=== PATIENT | male | born 1955 | race Caucasian/White ===

== ENCOUNTER 2018-08-01 21:29 | Inpatient (IN) | payer MEDICAID, MEDICARE ==
[~2018-08-01] VITALS: Ht 172.7 cm; Wt 85.7 kg
--- NOTE | 2018-08-01 22:35 | NUR ---
BBRA 102 FROM 4 SEASON FOR BLEEDING SHUNT, UNKNOWN DURATION OF BLEED PER FACILITY, PT WAS HYPOTENSIVE BP 80/80 BS AT FACILITY 340, UPON ARRIVAL RECHECKED BP 60/33 70, AFEBRILE, NO DISTRESS ON RA, AOX2, DR WOOD AT BEDSIDE TO ASSESS SITE, NO BLEEDING AT THIS TIME, 1L ORDERED, IV STARTED BOLUS. LT UA SUTURED.
[2018-08-01] MEDS ORDERED: IV NS 0.9% 1,000 ML BAG IV ONE (23:00)
[2018-08-01 23:14] LABS: BASOPHILS # (AUTO) 0.1 /CMM (0.0-0.2); BASOPHILS % (AUTO) 1.2 % (0.0-2.0); EOSINOPHILS % (AUTO) 0.6 % (0.0-6.0); HEMATOCRIT 27 % (39-51); HEMOGLOBIN 9.1 g/dL (13.5-17.5); LYMPHOCYTES # (AUTO) 0.5 /CMM (0.8-4.8); LYMPHOCYTES % (AUTO) 4.4 % (20.0-44.0); MEAN CORPUSCULAR HGB CONC 34 g/dl (31.0-36.0); MEAN CORPUSCULAR VOLUME 101 fL (80-96); MONOCYTES # (AUTO) 0.5 /CMM (0.1-1.30); MONOCYTES % (AUTO) 4.9 % (2.0-12.0); NEUTROPHILS # (AUTO) 9.4 /CMM (1.8-8.9); NEUTROPHILS % (AUTO) 88.9 % (43.0-81.0); PLATELET COUNT (AUTO) 194 /CMM (150-450); RED BLOOD CELL COUNT(AUTO) 2.68 MIL/uL (4.5-6.0); WHITE BLOOD COUNT (AUTO) 10.6 K/uL (4.3-11.0)
[2018-08-01 23:21] LABS: CREATININE 3.8 mg/dL (0.6-1.3)
[2018-08-01 23:27] LABS: ALBUMIN 3.2 g/dL (3.4-5.0); BILIRUBIN,DIRECT 0.1 mg/dL (0.0-0.2); BILIRUBIN,TOTAL 0.3 mg/dL (0.2-1.0); CALCIUM, SERUM 8.5 mg/dL (8.5-10.1); TOTAL PROTEIN, SERUM 6.3 g/dL (6.4-8.2)
[2018-08-02] MEDS ORDERED: Z GUARD REMEDY 2 OZ OINT TP PRN (01:00)
[2018-08-02] MEDS ORDERED: HYDROCODONE/APAP 5/325MG 1 EACH TABLET PO PRN (01:00)
[2018-08-02] MEDS ORDERED: MAG HYDROX/AL HYDROX/SIMETH 30 ML UDC PO PRN (01:00)
[2018-08-02] MEDS ORDERED: DEXTROSE 50%-WATER 50 ML DISP.SYRIN IV PRN (01:00)
[2018-08-02] MEDS ORDERED: MAGNESIUM HYDROXIDE 30 ML UDC PO PRN (01:00)
--- NOTE | 2018-08-02 01:30 | NUR ---
PT ASSIGNED TO 117-1
--- NOTE | 2018-08-02 02:20 | NUR ---
REPORT GIVEN TO ELNIA RUTLEDGE
[2018-08-02] MEDS ORDERED: IV NS 0.9% 1,000 ML BAG IV ONE (02:30)
--- NOTE | 2018-08-02 02:50 | NUR ---
OMAR/ORNAMENTAL METALWORK DESIGNER PT WAS TRANSFERRED TO OMAR. PT PLACED IN BED. SEE FLOWSHEET FOR ASSESSMENT. ALSO ANY AND ALL SKIN ISSUES WHICH ARE ADDRESSES ALONG WITH EACH INTERVENTIONS. PT WS TURNED AND REPOSITIONED FOR COMFORT KENDRICK CARE.
[2018-08-02 03:00] VITALS: BP 125/50
[2018-08-02 04:00] VITALS: BP 110/61
--- NOTE | 2018-08-02 04:00 | NUR ---
OMAR/AGRICULTURAL RESEARCH DIRECTOR IVF BOLUS FINISHED AND HEPLOCK. PT WAS TURNED AND REPOSITIONED FOR COMFORT AND CARE.
--- NOTE | 2018-08-02 05:32 | NUR ---
OMAR/TACTICAL AIR CONTROL PARTY WENT IN TO OFFER PT PAIN MEDICATION FOR PAIN WHICH PT C/O EARLIER, HOWEVER FOUND PT SUCKING ON PULSE OX AND WAS NONVERBAL. PT'S V/S DONE WHICH WAS 97/43, 89, 92%, RR 18. ABG WAS ORDERED STAT, CHARGE NURSE MADE AWARE OF PT'S NEURO STATUS.
[2018-08-02 05:42] LABS: ABG BASE EXCESS 1.9 mmol/L; ABG PCO2 30.3 mmHg (35.0-45.0); ABG PH 7.525 (7.350-7.450); ABG PO2 78.8 mmHg (75.0-100.0); AaDO2 85.1 mmHg; COHb 3.4 % (0.5-1.5); MetHb 0.3 % (0.0-1.5); O2Hb 91.5 % (94.0-97.0); SITE, ABG Right Radial; VENT MODE, BG 2 lpm cannula
--- NOTE | 2018-08-02 05:50 | NUR ---
ICU/USED BUILDING MATERIALS YARD WORKER PT'S ABG IS OK AT THIS TIME. WILL CONTINUE TO MONITOR PT AND HIS BREATHING. AT THIS TIME THERE IS NO ACUTE DISTRESS.
[2018-08-02 08:00] VITALS: BP 91/40
--- NOTE | 2018-08-02 08:22 | NUR ---
RN OMAR NOTES RECEIVED HAND OFF REPORT FROM AMANDA
[2018-08-02] MEDS: BLOOD SUGAR DIAGNOSTIC 1 EACH STRIP IN SCH ×4 (09:07→22:09)
[2018-08-02] MEDS: ACETAMINOPHEN 325 MG TABLET PO PRN (09:09)
[2018-08-02] MEDS: INSULIN REGULAR, HUMAN 100 UNIT/ML 3 ML VIAL SQ PRN ×4 (09:09→22:11)
--- NOTE | 2018-08-02 09:24 | NUR ---
RN OMAR NOTES PATIENT HAS ELEVATED TEMP OF 101.1 TYLENOL 650MG GIVEN AND COOL MEASURES TAKEN. NOTIFIED BOX ATTACHER IN REGARDS TO TEMP
[2018-08-02] MEDS ORDERED: MAGN400O6 PO (10:01)
[2018-08-02] MEDS ORDERED: AMIN30LI2 PO (10:01)
[2018-08-02] MEDS ORDERED: ACET-868 PO (10:01)
[2018-08-02] MEDS ORDERED: SEVE800T8 PO (10:02)
[2018-08-02] MEDS ORDERED: NEPA3DRO RIGHTEYE (10:02)
[2018-08-02] MEDS ORDERED: OMEG-88 PO (10:02)
[2018-08-02] MEDS ORDERED: ASPI-1152 PO (10:02)
[2018-08-02] MEDS ORDERED: ASCO500T9 PO (10:02)
[2018-08-02] MEDS ORDERED: PRAV40TA3 PO (10:02)
[2018-08-02] MEDS ORDERED: PROP10TA10 PO (10:02)
[2018-08-02] MEDS ORDERED: TERA10CA4 PO (10:02)
[2018-08-02] MEDS ORDERED: AMLO10TA4 PO (10:02)
[2018-08-02] MEDS ORDERED: FOLI0.8T2 PO (10:02)
[2018-08-02] MEDS ORDERED: HYDR-4077 PO (10:02)
[2018-08-02] MEDS ORDERED: BLOO-668 IN (10:02)
[2018-08-02] MEDS ORDERED: SERT50TA PO (10:02)
[2018-08-02] MEDS ORDERED: DORZ10DR13 EACHEYE (10:02)
[2018-08-02] MEDS ORDERED: HYDR-3026 PO (10:02)
[2018-08-02] MEDS ORDERED: INSU100V3 SQ (10:02)
[2018-08-02] MEDS ORDERED: GABA-534 PO (10:02)
--- NOTE | 2018-08-02 11:14 | NUR ---
RN OMAR NOTES PATIENT NOTED TO HAVE DONNA BLOOD COMING FROM [facility]. ANA SAAVEDRA AWARE. ATTEMPTED UA STRAIGHT CATH UNABLE TO OBTAIN SAMPLE
[2018-08-02 12:00] VITALS: BP 78/26
--- NOTE | 2018-08-02 12:10 | NUR ---
RN OMAR NOTES CONTACTED ANA SAAVEDRA IN REGARDS TO PT LOW BP 78/26 . ORDERS FOR 1 LITER NS AND STAT CBC.
[2018-08-02] MEDS: IV NS 0.9% 1,000 ML IV PRN ×2 (12:15→16:47)
[2018-08-02 12:50] LABS: BASOPHILS % (AUTO) 0.1 % (0.0-2.0); HEMATOCRIT 24 % (39-51); HEMOGLOBIN 7.9 g/dL (13.5-17.5); LYMPHOCYTES # (AUTO) 0.6 /CMM (0.8-4.8); LYMPHOCYTES % (AUTO) 2.5 % (20.0-44.0); MEAN CORPUSCULAR HGB CONC 33 g/dl (31.0-36.0); MEAN CORPUSCULAR VOLUME 99 fL (80-96); MONOCYTES # (AUTO) 1.2 /CMM (0.1-1.30); MONOCYTES % (AUTO) 5.3 % (2.0-12.0); NEUTROPHILS # (AUTO) 20.4 /CMM (1.8-8.9); NEUTROPHILS % (AUTO) 92.1 % (43.0-81.0); PLATELET COUNT (AUTO) 182 /CMM (150-450); RED BLOOD CELL COUNT(AUTO) 2.37 MIL/uL (4.5-6.0); WHITE BLOOD COUNT (AUTO) 22.2 K/uL (4.3-11.0)
--- NOTE | 2018-08-02 13:22 | NUR ---
RN OMAR NOTES ORDER OBTAINED FOR MIDLINE INSERTION PATIENT HAS MINIMAL ACCESS. ALSO INFORMED ANA SAAVEDRA IN REGARDS TO HGB OF 7.9 DECREASED FROM 9.1 LAST NIGHT. PATIENT HAS HAD 2X MUCOUS BLOOD STOOL
--- NOTE | 2018-08-02 13:32 | NUR ---
RN OMAR NOTES IV TO L HAND # 20 REMOVED IV TO R FINGER # 24 REMOVED
--- NOTE | 2018-08-02 14:31 | NUR ---
RN OMAR NOTES BP AFTER 1 LITER 102/46 HR 75
[2018-08-02 16:00] VITALS: BP 110/50
--- NOTE | 2018-08-02 16:15 | NUR ---
RN OMAR NOTES STRAIGHT CATH X2 NO URINE TO COLLECT. ORDER FOR PADILLA CATH
--- NOTE | 2018-08-02 16:16 | NUR ---
CRITICAL LAB LACTIC ACID 2.2 ANA SAAVEDRA AWARE
[2018-08-02] MEDS ORDERED: FEE PK DOSING 1 MIN EA MC ONE (16:30)
[2018-08-02] MEDS ORDERED: VANCOMYCIN 1 GM in IV D5W 250 ML IV ONE (17:00)
[2018-08-02] MEDS ORDERED: NS 0.9% IV PRN (17:00)
[2018-08-02] MEDS ORDERED: IV NS 0.9% 1,000 ML IV PRN (17:00)
[2018-08-02] MEDS: MEROPENEM 500 MG in IV NS 0.9% 50 ML IV SCH (17:22)
[2018-08-02] MEDS: METRONIDAZOLE 500MG/ NS 100ML 500 MG in PREMIX 1 EA IV SCH ×2 (17:38→22:06)
[2018-08-02] MEDS ORDERED: METRONIDAZOLE 500MG/ NS 100ML 500 MG in PREMIX 1 EA IV SCH (18:00)
[2018-08-02 18:42] LABS: FREE PSA 22.43 ng/mL (0.00-45); PROSTATE SPECIFIC ANTIGEN SCR 59.64 ng/mL (0.00-4.00)
--- NOTE | 2018-08-02 18:46 | NUR ---
RN OMAR NOTES PATIENT MORE RESPONSIVE. A/O X1 SELF FOLLOWS COMMANDS BUT UNABLE TO ANSWER SIMPLE QUESTIONS WITHOUT BEING PROMPTED. NO SIGNS OR SYMPTOMS OF RESPIRATORY DISTRESS SATURATING 98% ON 2 LITERS. NO ACUTE PAIN NOTED. INCONTINENT/ DIAPER ANURIC. 3X BLOODY STOOL MD AWARE. MIDLINE RUNNING NS @75 ML/HR PATENT WITH GOOD BLOOD RETURN. NO WARMTH REDNESS OR INFILTRATION NOTED. LEFT BKA STUMP CLEAN WITH NO SKIN BREAKDOWN. R ANTERIOR FOOT DTI MEPILEX APPLIED PER ORDER. SACRAL EXCORIATED ZGAURG APPLIED. NO EPISODES OF HYPER/HYPOGLYCEMIA NOTED. LAST BP 110/50. NOTIFIED INREGARDS TO ALL ABNORMAL LABS. WILL ENDORSE TO NOC IN REGARDS TO UA OK TO PUT PADILLA CATH TO MONITOR OUTPUT.
--- NOTE | 2018-08-02 18:46 | NUR ---
LACTIC ACID 1.1
--- NOTE | 2018-08-02 19:08 | NUR ---
TD RN NOTES RECEIVED PT ON BED. A/O X 1. ON NASAL CANNULA 2LPM, NO RESPIRATORY DISTRESS NOTED. IV ACCESS ON LOPEZ MIDLINE, PATENT AND INTACT. TELE MONITOR READING SR 80. NO BLEEDING NOTED ON SHUNT. HEAD OF BED ELEVATED. SIDE RAILS UP. CALL LIGHT WITHIN REACH. BED ALARM ON. WILL CONTINUE TO MONITOR PT CLOSELY
--- NOTE | 2018-08-02 19:12 | NUR ---
RN OMAR CLOSING NOTES REPORT ENDORSED TO NOC
[2018-08-02 20:00] VITALS: BP 100/56
--- NOTE | 2018-08-02 21:00 | NUR ---
TD RN NOTES CALLED RADIOLOGY FOR CT SCAN. PER RADIOLOGY THEY WILL DO IT TODAY.
--- NOTE | 2018-08-02 21:05 | NUR ---
TD RN NOTES PER PHARMACY OKAY TO GIVE METRONIDAZOLE @ 2200.
--- NOTE | 2018-08-02 21:24 | NUR ---
TD RN NOTES PT REFUSED PADILLA CATH. PT AGITATED WHEN TRYING TO INSERT. WILL TRY CONDOM CATHETER. CHARGE NURSE INFORMED.
[2018-08-03] VITALS (9 sets, daily range): BP systolic 94–133; BP diastolic 37–60
[2018-08-03] MEDS: MEROPENEM 500 MG in IV NS 0.9% 50 ML IV SCH ×2 (04:08→17:08)
--- NOTE | 2018-08-03 04:49 | NUR ---
TD RN NOTES BLADDER SCAN SHOWS 20ML. VERIFIED BY 2 RN. PT REFUSE STRAIGHT CATH FOR URINE SAMPLE. EXPLAINED RISK AND BENEFITS PT STILL REFUSED. CHARGE NURSE INFORMED.
[2018-08-03] MEDS: METRONIDAZOLE 500MG/ NS 100ML 500 MG in PREMIX 1 EA IV SCH ×3 (05:00→21:20)
--- NOTE | 2018-08-03 05:00 | NUR ---
TD RN NOTES UNABLE TO COLLECT STOOL. NO BOWEL MOVEMENT FOR THE SHIFT.
[2018-08-03 06:51] LABS: BASOPHILS % (AUTO) 0.1 % (0.0-2.0); EOSINOPHILS % (AUTO) 0.5 % (0.0-6.0); LYMPHOCYTES # (AUTO) 0.5 /CMM (0.8-4.8); LYMPHOCYTES % (AUTO) 3.1 % (20.0-44.0); MEAN CORPUSCULAR HGB CONC 34 g/dl (31.0-36.0); MEAN CORPUSCULAR VOLUME 101 fL (80-96); MONOCYTES % (AUTO) 6.2 % (2.0-12.0); NEUTROPHILS # (AUTO) 13.9 /CMM (1.8-8.9); NEUTROPHILS % (AUTO) 90.1 % (43.0-81.0); PLATELET COUNT (AUTO) 164 /CMM (150-450); WHITE BLOOD COUNT (AUTO) 15.4 K/uL (4.3-11.0)
[2018-08-03 06:57] LABS: RED BLOOD CELL COUNT(AUTO) 1.98 MIL/uL (4.5-6.0)
[2018-08-03 06:58] LABS: HEMATOCRIT 20 % (39-51); HEMOGLOBIN 6.7 g/dL (13.5-17.5)
--- NOTE | 2018-08-03 07:01 | NUR ---
TD RN NOTES PAGED [facility], FO H/H OF 6.7. AWAITING CALL BACK.
[2018-08-03 07:11] LABS: BAND % (MANUAL) 3 % (0.0-5.0); EOSINOPHILS % (MANUAL) 1 % (0-4); LYMPHOCYTES % (MANUAL) 3 % (16-48); MONOCYTES % (MANUAL) 1 % (0-11.0); NEUTROPHILS % (MANUAL) 92 (42-76)
--- NOTE | 2018-08-03 07:16 | NUR ---
TD RN NOTES NO ACUTE CHANGES NOTED DURING THE SHIFT. NO ACTIVE BLEEDING NOTED. BP WNL. WILL ENDORSE TO THE AM NURSE FOR CONTINUITY OF CARE.
--- NOTE | 2018-08-03 07:19 | NUR ---
TD RN NOTES ENDORSED TO AM NURSE ONE UNIT PRBC ORDER PER NAE OTA
[2018-08-03 07:28] LABS: CALCIUM, SERUM 9.2 mg/dL (8.5-10.1); CREATININE 5.6 mg/dL (0.6-1.3); MAGNESIUM 2.2 mg/dL (1.8-2.4); PHOSPHORUS 4.9 mg/dL (2.5-4.9); POTASSIUM 4.3 mmol/L (3.5-5.1)
--- NOTE | 2018-08-03 07:40 | NUR ---
rn notes received patient in bed, awake, not on any form of distress, a/o x2, able to respond to questions appropriately, able to follow commands, with nasal cannula with oxygen at 2 lpm, no sob noted. sinus ryhthm on the monitor with hr on the 70's. midline on the right upper extremity, in place and intact, with ongiung ivf of normal saline at 75 cc/hr. patient with condom cath in place in lieu to urine collection for lab test- no output at this time. safety measures observed and maintained, srx2 up, bed low and locked position, call light placed within reach, encourage to use call light for help and assistance, richie continue to monitor patient.
--- NOTE | 2018-08-03 07:44 | NUR ---
rn notes confirmed with Dr. Villegas, if transfusion for prbc nayan at this time. awaiting for call back
[2018-08-03] MEDS: BLOOD SUGAR DIAGNOSTIC 1 EACH STRIP IN SCH ×4 (09:16→21:26)
[2018-08-03] MEDS: INSULIN REGULAR, HUMAN 100 UNIT/ML 3 ML VIAL SQ PRN ×3 (09:17→21:28)
[2018-08-03 09:25] LABS: THYROID STIMULATING HORMONE 2.577 uIU/mL (0.358-3.74)
--- NOTE | 2018-08-03 11:00 | NUR ---
rn notes dialysis treatment started at this time.
--- NOTE | 2018-08-03 13:00 | NUR ---
rn notes dialysis treatment done. patient able to tolerate procedure. not on any form of distress. 1000ml taken out from the patient
[2018-08-03] MEDS: VANCOMYCIN 500 MG in IV D5W 100 ML IV PRN (15:12)
--- NOTE | 2018-08-03 19:11 | NUR ---
rn notes endorsed for continuity of care. not on any form of distress. no acute changes within the shift. all nursing needs attended and met. safety measures in place at all times. call light within reach
--- NOTE | 2018-08-03 19:32 | NUR ---
MS RN NOTES RECEIVED PT ON BED. A/O X 3. ON NASAL CANNULA 2LPM NO RESPIRATORY DISTRESS NOTED. IV ACCESS ON LOPEZ MIDLINE SALINE LOCK. CONDOM CATH IN PLACED, NOT DRAINING ANY URINE. HEAD OF BED ELEVATED. SIDE RAILS UP. CALL LIGHT WITHIN REACH. BED ALARM ON. WILL CONTINUE TO MONITOR PT CLOSELY.
[2018-08-03] MEDS: MUPIROCIN OINT 2% 22 GM TUBE SCH (21:21)
[2018-08-04] VITALS (11 sets, daily range): BP systolic 110–150; BP diastolic 34–56
[2018-08-04] MEDS: MEROPENEM 500 MG in IV NS 0.9% 50 ML IV SCH ×2 (04:00→18:43)
[2018-08-04] MEDS: METRONIDAZOLE 500MG/ NS 100ML 500 MG in PREMIX 1 EA IV SCH ×3 (05:01→21:11)
[2018-08-04 07:12] LABS: BASOPHILS % (AUTO) 0.4 % (0.0-2.0); EOSINOPHILS % (AUTO) 2.9 % (0.0-6.0); LYMPHOCYTES # (AUTO) 0.5 /CMM (0.8-4.8); LYMPHOCYTES % (AUTO) 5.6 % (20.0-44.0); MEAN CORPUSCULAR HGB CONC 34 g/dl (31.0-36.0); MEAN CORPUSCULAR VOLUME 98 fL (80-96); MONOCYTES # (AUTO) 0.6 /CMM (0.1-1.30); MONOCYTES % (AUTO) 6.2 % (2.0-12.0); NEUTROPHILS # (AUTO) 7.8 /CMM (1.8-8.9); NEUTROPHILS % (AUTO) 84.9 % (43.0-81.0); PLATELET COUNT (AUTO) 170 /CMM (150-450); RED BLOOD CELL COUNT(AUTO) 2.08 MIL/uL (4.5-6.0); WHITE BLOOD COUNT (AUTO) 9.2 K/uL (4.3-11.0)
--- NOTE | 2018-08-04 07:17 | NUR ---
MS RN NOTES NO ACUTE CHANGES NOTED DURING THE SHIFT. PROVIDED COMFORT AND SAFETY. WILL ENDORSE TO THE AM NURSE FOR CONTINUITY OF CARE.
[2018-08-04 07:23] LABS: HEMATOCRIT 20 % (39-51)
[2018-08-04 07:25] LABS: HEMOGLOBIN 6.9 g/dL (13.5-17.5)
[2018-08-04 07:35] LABS: ALBUMIN 2.3 g/dL (3.4-5.0); BILIRUBIN,TOTAL 0.4 mg/dL (0.2-1.0); CALCIUM, SERUM 8.4 mg/dL (8.5-10.1); CREATININE 4.7 mg/dL (0.6-1.3); PHOSPHORUS 4.1 mg/dL (2.5-4.9); POTASSIUM 3.9 mmol/L (3.5-5.1); TOTAL PROTEIN, SERUM 5.4 g/dL (6.4-8.2)
--- NOTE | 2018-08-04 08:00 | NUR ---
MS RN NOTES PT IN BED ALERT AND ORIENTED X3. ON 02 2LPM. NO SOB NOTED AT THIS TIME. PT HAVING BREAKFAST AND ABLE TO FEED SELF. LOPEZ MIDLINE IN PLACED AND INTACT. NO S/S OR INFECTION. SPOKE WITH DR. ZUNIGA ESTATE ADMINISTRATOR TO STOP IV FLUIDS. DR. ZUNIGA ALSO INFORMED HBG 6.9. NO ORDERS GIVEN AND NO BLOOD TRANSFUSION AT THIS TIME. BED LOCKED AND LOW POSITION. CALL LIGHT WITHIN REACH. PLAN OF CARE DISCUSSED WITH PATIENT.
[2018-08-04 08:12] LABS: EOSINOPHILS % (MANUAL) 5 % (0-4); LYMPHOCYTES % (MANUAL) 8 % (16-48); MONOCYTES % (MANUAL) 4 % (0-11.0); NEUTROPHILS % (MANUAL) 83 (42-76)
[2018-08-04] MEDS: BLOOD SUGAR DIAGNOSTIC 1 EACH STRIP IN SCH ×4 (08:52→21:10)
[2018-08-04] MEDS: MUPIROCIN OINT 2% 22 GM TUBE SCH ×2 (08:56→21:11)
[2018-08-04] MEDS: INSULIN REGULAR, HUMAN 100 UNIT/ML 3 ML VIAL SQ PRN ×4 (08:56→21:14)
--- NOTE | 2018-08-04 10:30 | NUR ---
MS RN NOTES ROUNDS MADE. KEEP CLEAN AND DRY. TURN AND REPOSITION. CALL LIGHT WITHIN REACH. ALL NEEDS ATTENDED.
--- NOTE | 2018-08-04 13:56 | NUR ---
MS RN NOTE SEEN BY ANA RUTLEDGE FILM PROCESS OPERATOR AWARE THAT HG 6.9 WITH ORDER TO DO BLOOD TRANSFUSION, ALSO NOTIFIED TO DO MED RECON STATED THAT WILL DO IT ,WILL F\U
--- NOTE | 2018-08-04 14:51 | NUR ---
MS RN NOTES TEMP OF 100.6 PT TO HAVE BLOOD TRANSFUSION. CALLED MEAGAN SAAVEDRA OK TO GIVE TYLENOL AND TO PROCEED WITH BLOOD TRANSFUSION.
[2018-08-04] MEDS: ACETAMINOPHEN 325 MG TABLET PO PRN (14:55)
--- NOTE | 2018-08-04 15:35 | NUR ---
MS RN NOTE BLOOD TRANSFUSION START TO TRANSFUSE, NO ADVERSE REACTION NOTED AT THIS TIME
--- NOTE | 2018-08-04 16:58 | NUR ---
MS RN NOTES RECHECKED PT, BOWEL MOVEMENT MADE. NO BLEEDING NOTED.
--- NOTE | 2018-08-04 17:58 | NUR ---
MS MATY NOTES TEMP OF 100.1 WAS EARLIER AND MATY BURCIAGA CAREER REPRESENTATIVE ID AWARE EARLIER. MEREPENEM NOT GIVEN AT 1700. PT STILL TRANSFUSING BLOOD. WILL DO LATER ON
--- NOTE | 2018-08-04 18:27 | NUR ---
MS RN NOTES CONTINUE ON BLOOD TRANSFUSION. PT NOT IN DISTRESS. NO SOB. ABLE TO EAT BY HIMSELF. HAVING DINNER AT THE MOMENT. CALL LIGHT WITHIN REACH. DR. DESOUZA SEEN PATIENT AT BEDSIDE.
--- NOTE | 2018-08-04 18:40 | NUR ---
MS RN NOTES BLOOD TRANSFUSION OF 1UNIT COMPLETED. NO ADVERSE REACTION NOTED. TOLERATED WELL. TEMP WAS 98.7.
[2018-08-05 04:00] VITALS: BP 152/63
[2018-08-05] MEDS: MEROPENEM 500 MG in IV NS 0.9% 50 ML IV SCH ×2 (04:04→17:37)
[2018-08-05 04:20] VITALS: BP 152/63
[2018-08-05] MEDS: METRONIDAZOLE 500MG/ NS 100ML 500 MG in PREMIX 1 EA IV SCH ×3 (05:33→22:21)
--- NOTE | 2018-08-05 07:05 | NUR ---
MS RN OPENING NOTES RECEIVED PT LYING ON BED.ALERT/ORIENTED X3.ON 2 L O2 VIA NC CONTINUOUSLY,NO SOB AND ACUTE DISTRESS NOTED.MIDLINE ON RIGHT UA AND LEFT AV SHUNT,SITE IS CLEAN,DRY AND INTACT AND NO BLEEDING NOTED..BED IS IN LOW POSITION AND LOCKED.CALL LIGHT IS WITHIN REACH.WILL CONTINUE TO MONITOR THE PT CLOSELY.
--- NOTE | 2018-08-05 07:27 | NUR ---
MS RN NOTES NO ACUTE CHANGES NOTED DURING THE SHIFT. PROVIDED COMFORT AND SAFETY. NO ACTIVE BLEEDING NOTED.WILL ENDORSE TO THE AM NURSE FOR CONTINUITY OF CARE.
[2018-08-05 07:34] LABS: BASOPHILS # (AUTO) 0.1 /CMM (0.0-0.2); BASOPHILS % (AUTO) 0.7 % (0.0-2.0); EOSINOPHILS % (AUTO) 4.6 % (0.0-6.0); HEMATOCRIT 24 % (39-51); HEMOGLOBIN 8.2 g/dL (13.5-17.5); LYMPHOCYTES # (AUTO) 0.7 /CMM (0.8-4.8); LYMPHOCYTES % (AUTO) 6.3 % (20.0-44.0); MEAN CORPUSCULAR HGB CONC 34 g/dl (31.0-36.0); MEAN CORPUSCULAR VOLUME 96 fL (80-96); MONOCYTES # (AUTO) 0.7 /CMM (0.1-1.30); MONOCYTES % (AUTO) 6.6 % (2.0-12.0); NEUTROPHILS # (AUTO) 8.6 /CMM (1.8-8.9); NEUTROPHILS % (AUTO) 81.8 % (43.0-81.0); PLATELET COUNT (AUTO) 189 /CMM (150-450); RED BLOOD CELL COUNT(AUTO) 2.48 MIL/uL (4.5-6.0); WHITE BLOOD COUNT (AUTO) 10.5 K/uL (4.3-11.0)
[2018-08-05 07:38] LABS: CALCIUM, SERUM 8.6 mg/dL (8.5-10.1); CREATININE 6.4 mg/dL (0.6-1.3); POTASSIUM 4.2 mmol/L (3.5-5.1)
--- NOTE | 2018-08-05 07:45 | NUR ---
WOUND CARE CONSULT WOUND CARE RECEIVED CONSULT FOR WOUND TO SACRAL AND RIGHT ANKLE. WOUND CARE WILL DEFER CONSULT AND TREATMENT PLANS TO PLASTIC SURGICAL TEAM INCLUDING DPM DR VINCENT WHO ARE ALL FOLLOWING THIS PATIENT. PATIENT WITH SARAH AT 10, ALL PRESSURE ULCER PREVENTION MEASURES ARE NOTED TO BE IN PLACE AT THIS TIME. WILL SEE PRN.
[2018-08-05 08:00] VITALS: BP 148/54
[2018-08-05 08:08] LABS: IRON, SERUM 34 ug/dl (50-175); TOTAL IRON BINDING CAPACITY 129 ug/dl (250-450)
[2018-08-05 08:21] LABS: FERRITIN 1965 ng/mL (8-388)
[2018-08-05] MEDS: INSULIN REGULAR, HUMAN 100 UNIT/ML 3 ML VIAL SQ PRN ×2 (08:33→22:21)
[2018-08-05] MEDS: BLOOD SUGAR DIAGNOSTIC 1 EACH STRIP IN SCH ×4 (08:33→22:21)
[2018-08-05] MEDS: MUPIROCIN OINT 2% 22 GM TUBE SCH ×2 (08:34→22:21)
[2018-08-05] MEDS: ONDANSETRON HCL/PF 4 MG/2 ML VIAL IVP PRN (12:45)
--- NOTE | 2018-08-05 15:45 | NUR ---
MS RN NOTES VANCO TROUGH IS 21 TODAY, PER PHARMACIST LEIGH HOLD IV VANCOMYCIN.NEW ORDERS NOTED AND CARRIED OUT.
[2018-08-05 16:00] VITALS: BP 144/41
--- NOTE | 2018-08-05 16:00 | NUR ---
MS RN NOTES MEAGAN PEREZ ORDERED TO GET THE CONSENT FOR COLONOSCOPY FROM THE RESPONSIBLE DEMOCRAT.NEW ORDERS NOTED AND CARRIED OUT.
--- NOTE | 2018-08-05 16:30 | NUR ---
MS RN NOTES ASSOCIATE MERCHANT QUENTINMUSTAPHA PEREZ SAID THEY ARE PLANNING TO DO COLONOSCOPY IN THE FOLLOWING DAYS AND SHE WANTS TO CALL THE RESPONSIBLE LIBERTARIAN TO GET THE CONSENT.CONSENT OBTAINED FROM FEDERICO MAKI,FRIEND.ASSOCIATE MERCHANT MADE AWARE.
--- NOTE | 2018-08-05 18:57 | NUR ---
MS RN CLOSING NOTES PT IS LYING ON BED,HD HAS DONE.VITAL SIGNS ARE WNL.NO SIGNIFICANT CHNAGES NOTED IN THE SHIFT.ENDORSED TO BASE CLOTH INSPECTOR RN FOR EVELYN.
[2018-08-05 20:00] VITALS: BP 161/33
--- NOTE | 2018-08-05 20:23 | NUR ---
RN OPENING NOTES RECEIVED REPORT FROM BINH RN. PATIENT A/A/O X2-3, ABLE TO MAKE NEEDS KNOWN. BREATHING EVEN & UNLABORED, TOLERATING O2 @ 2LPM VIA NC. DENIES ANY SOB OR DIFFICULTY BREATHING. RADIAL PULSES PRESENT. RIGHT UPPER ARM MIDLINE INTACT & PATENT W/ DRESSING CDI, SALINE LOCKED. LEFT ARM AV SHUNT PRESENT W/ NO COMPLICATIONS NOTED. DENIES ANY PAIN OR DISCOMFORT @ THIS TIME. SAFETY MEASURES IN PLACE W/ SIDE RAILS UP & BED ALARM ON. INSTRUCTED TO USE CALL LIGHT FOR ASSISTANCE. TURNED & REPOSITIONED FOR COMFORT. WILL CONTINUE TO MONITOR.
[2018-08-06 04:00] VITALS: BP 149/35
[2018-08-06] MEDS: MEROPENEM 500 MG in IV NS 0.9% 50 ML IV SCH ×2 (04:17→18:01)
[2018-08-06] MEDS: METRONIDAZOLE 500MG/ NS 100ML 500 MG in PREMIX 1 EA IV SCH ×3 (05:49→21:25)
[2018-08-06 06:26] LABS: BASOPHILS % (AUTO) 0.6 % (0.0-2.0); EOSINOPHILS % (AUTO) 4.6 % (0.0-6.0); HEMATOCRIT 23 % (39-51); LYMPHOCYTES # (AUTO) 0.5 /CMM (0.8-4.8); MEAN CORPUSCULAR HGB CONC 34 g/dl (31.0-36.0); MEAN CORPUSCULAR VOLUME 97 fL (80-96); MONOCYTES # (AUTO) 0.6 /CMM (0.1-1.30); MONOCYTES % (AUTO) 7.9 % (2.0-12.0); NEUTROPHILS # (AUTO) 6.5 /CMM (1.8-8.9); NEUTROPHILS % (AUTO) 80.9 % (43.0-81.0); PLATELET COUNT (AUTO) 183 /CMM (150-450); RED BLOOD CELL COUNT(AUTO) 2.41 MIL/uL (4.5-6.0)
[2018-08-06 07:00] LABS: CALCIUM, SERUM 8.4 mg/dL (8.5-10.1); CREATININE 4.9 mg/dL (0.6-1.3); MAGNESIUM 1.9 mg/dL (1.8-2.4); PHOSPHORUS 4.4 mg/dL (2.5-4.9); POTASSIUM 4.4 mmol/L (3.5-5.1)
[2018-08-06 08:00] VITALS: BP 113/48
[2018-08-06 08:07] LABS: *SPE A/G RATIO 1.3 (0.7-1.7); *SPE ALPHA-1-GLOBULIN 0.3 g/dL (0.0-0.4); *SPE ALPHA-2-GLOBULIN 0.7 g/dL (0.4-1.0); *SPE BETA GLOBULIN 0.6 g/dL (0.7-1.3); *SPE GLOBULIN, TOTAL 2.3 g/dL (2.2-3.9); *SPE M-SPIKE Not Observed g/dL (Not Observed); *SPEGAMMA GLOBULIN 0.7 g/dL (0.4-1.8)
[2018-08-06] MEDS: BLOOD SUGAR DIAGNOSTIC 1 EACH STRIP IN SCH ×4 (09:27→21:44)
[2018-08-06] MEDS: MUPIROCIN OINT 2% 22 GM TUBE SCH ×2 (09:29→21:45)
[2018-08-06] MEDS: INSULIN REGULAR, HUMAN 100 UNIT/ML 3 ML VIAL SQ PRN ×2 (09:39→14:16)
[2018-08-06] MEDS ORDERED: PEG 3350/NA SULF,BICARB,CL/KCL 4,000 ML BOTTLE PO ONE (11:00)
[2018-08-06] MEDS ORDERED: BISACODYL (5 MG) 5 MG TABLET.DR PO ONE ×3 (11:00→13:39)
[2018-08-06 16:00] VITALS: BP 118/60
--- NOTE | 2018-08-06 19:30 | NUR ---
RN INITIAL SHIFT NOTES RECEIVED REPORT FROM NURSE MANDEL. PATIENT IN BED, AWAKE, ALERT AND ORIENTED X3, NO ACUTE DISTRESS NOTED. BREATHING EVEN AND NONLABORED. LOPEZ MIDLINE PATENT AND INTACT, FLUSHED WITH NS, TKO. KAMILAH AV SHUNT WITH +BRUIT AND THRILL, NO BLEEDING NOTED AT SITE. PATIENT WITH BM, STATING "YOU CAN CLEAN ME UP AT 8PM. IM STILL POOPING." PATIENT APPROXIMATELY HALF WAY THROUGH BOWEL PREP FOR COLONOSCOPY IN AM. CALL LIGHT WITHIN EASY REACH, BED IN LOWEST AND LOCKED POSITION, WILL CONTINUE TO CLOSELY MONITOR
[2018-08-06 20:00] VITALS: BP 134/65
[2018-08-06] MEDS: ONDANSETRON HCL/PF 4 MG/2 ML VIAL IVP PRN (22:27)
--- NOTE | 2018-08-06 23:00 | NUR ---
RN NOTES PATIENT WITH EPISODE OF EMESIS X1. ZOFRAN ADMINISTERED, EFFECTIVE. WILL MONITOR CLOSELY
--- NOTE | 2018-08-07 | NUR ---
RN NOTES PATIENT MADE NPO, COLONOSCOPY SCHEDULED FOR 729, BOWEL PREP COMPLETE
[2018-08-07 04:00] VITALS: BP 110/50
[2018-08-07] MEDS: MEROPENEM 500 MG in IV NS 0.9% 50 ML IV SCH ×2 (04:31→17:20)
[2018-08-07 05:17] LABS: BASOPHILS % (AUTO) 0.4 % (0.0-2.0); EOSINOPHILS % (AUTO) 2.3 % (0.0-6.0); HEMATOCRIT 23 % (39-51); HEMOGLOBIN 7.7 g/dL (13.5-17.5); LYMPHOCYTES # (AUTO) 0.5 /CMM (0.8-4.8); LYMPHOCYTES % (AUTO) 6.6 % (20.0-44.0); MEAN CORPUSCULAR HGB CONC 34 g/dl (31.0-36.0); MEAN CORPUSCULAR VOLUME 97 fL (80-96); MONOCYTES # (AUTO) 0.6 /CMM (0.1-1.30); NEUTROPHILS # (AUTO) 6.8 /CMM (1.8-8.9); NEUTROPHILS % (AUTO) 83.7 % (43.0-81.0); PLATELET COUNT (AUTO) 188 /CMM (150-450); RED BLOOD CELL COUNT(AUTO) 2.38 MIL/uL (4.5-6.0); WHITE BLOOD COUNT (AUTO) 8.1 K/uL (4.3-11.0)
[2018-08-07] MEDS: METRONIDAZOLE 500MG/ NS 100ML 500 MG in PREMIX 1 EA IV SCH ×3 (05:25→22:03)
[2018-08-07 05:30] LABS: CALCIUM, SERUM 8.5 mg/dL (8.5-10.1); CREATININE 6.3 mg/dL (0.6-1.3); MAGNESIUM 1.9 mg/dL (1.8-2.4); PHOSPHORUS 5.3 mg/dL (2.5-4.9); POTASSIUM 4.8 mmol/L (3.5-5.1)
--- NOTE | 2018-08-07 06:00 | NUR ---
RN NOTES PATIENT RESTING COMFORTABLY IN BED, BOWEL PREP COMPLETED, LATEST BM NOTED WITH LIQUID GREEN OUTPUT. WILL ENDORSE THE PATIENT TO THE AM SHIFT NURSE FOR CONTINUITY OF CARE
--- NOTE | 2018-08-07 07:15 | NUR ---
RN NOTES PATIENT LEFT FOR COLONOSCOPY IN STABLE CONDITION VIA BED. PATIENT ENDORSED TO DAY SHIFT NURSE FOR CONTINUITY OF CARE
[2018-08-07] MEDS ORDERED: KETAMINE HCL (500MG/10ML) 50 MG/ML VIAL ONE (07:26)
[2018-08-07] MEDS ORDERED: ANESTHESIA TRAY IN PYXIS 1 EA TRAY MC ONE (07:28)
[2018-08-07 08:00] VITALS: BP 155/77
[2018-08-07] MEDS: INSULIN REGULAR, HUMAN 100 UNIT/ML 3 ML VIAL SQ PRN ×4 (09:26→22:15)
[2018-08-07] MEDS: MUPIROCIN OINT 2% 22 GM TUBE SCH ×2 (09:28→22:06)
[2018-08-07] MEDS: BLOOD SUGAR DIAGNOSTIC 1 EACH STRIP IN SCH ×4 (09:28→22:03)
--- NOTE | 2018-08-07 10:21 | NUR ---
MS RN OPENING NOTES RECEIVED PATIENT REPORT FROM WRAPPER CASHIER RN. PATIENT TAKEN FOR COLONOSCOPY PROCEDURE. PATIENT REPORTED A/O X2-3, ABLE TO MAKE NEEDS KNOWN. BREATHING EVEN & UNLABORED, TOLERATING O2 @ 2LPM VIA NC. DENIES ANY SOB OR DIFFICULTY BREATHING. LOPEZ MIDLINE INTACT & PATENT. LEFT ARM AV SHUNT PRESENT W/ NO COMPLICATIONS NOTED. SAFETY MEASURES TO BE PLACED UPON PATIENT RETURN. WILL CONITINUE TO MONITOR.
[2018-08-07 12:00] VITALS: BP 141/68
[2018-08-07 12:45] LABS: HEMOGLOBIN 8.1 g/dL (13.5-17.5)
[2018-08-07 16:00] VITALS: BP_SYST 137; BP_DIAS 60; BP_DIAS 66
[2018-08-07 20:00] VITALS: BP 133/90
[2018-08-08 04:00] VITALS: BP 120/49
[2018-08-08] MEDS: MEROPENEM 500 MG in IV NS 0.9% 50 ML IV SCH ×2 (05:50→18:37)
[2018-08-08] MEDS: METRONIDAZOLE 500MG/ NS 100ML 500 MG in PREMIX 1 EA IV SCH ×3 (05:51→22:01)
--- NOTE | 2018-08-08 07:05 | NUR ---
RN CLOSING NOTES PT IS LYING ON BED,PT KEPT NPO.VITAL SIGNS ARE WNL.NO SIGNIFICANT CHANGES, NOTED IN THE SHIFT.ENDORSED TO AM SHIFT RN FOR EVELYN.
[2018-08-08 07:07] LABS: BASOPHILS % (AUTO) 0.4 % (0.0-2.0); EOSINOPHILS % (AUTO) 5.5 % (0.0-6.0); HEMATOCRIT 21 % (39-51); LYMPHOCYTES # (AUTO) 0.5 /CMM (0.8-4.8); LYMPHOCYTES % (AUTO) 7.5 % (20.0-44.0); MEAN CORPUSCULAR HGB CONC 34 g/dl (31.0-36.0); MEAN CORPUSCULAR VOLUME 97 fL (80-96); MONOCYTES # (AUTO) 0.5 /CMM (0.1-1.30); MONOCYTES % (AUTO) 8.1 % (2.0-12.0); NEUTROPHILS # (AUTO) 5.2 /CMM (1.8-8.9); NEUTROPHILS % (AUTO) 78.5 % (43.0-81.0); PLATELET COUNT (AUTO) 184 /CMM (150-450); WHITE BLOOD COUNT (AUTO) 6.6 K/uL (4.3-11.0)
[2018-08-08 07:08] LABS: CALCIUM, SERUM 8.4 mg/dL (8.5-10.1); CREATININE 4.9 mg/dL (0.6-1.3); POTASSIUM 4.4 mmol/L (3.5-5.1)
--- NOTE | 2018-08-08 07:20 | NUR ---
MS RN INITIAL NOTES RECEIVED IN PATIENT IN BED, AWAKE, ALERT AND ORIENTED X3, NO ACUTE DISTRESS NOTED. BREATHING EVEN AND NONLABORED. LOPEZ MIDLINE PATENT AND INTACT. KAMILAH AV SHUNT WITH +BRUIT AND THRILL, NO BLEEDING NOTED AT SITE. CALL LIGHT WITHIN EASY REACH, BED IN LOWEST AND LOCKED POSITION, WILL CONTINUE TO CLOSELY MONITOR.
[2018-08-08 07:23] LABS: HEMOGLOBIN 6.9 g/dL (13.5-17.5)
[2018-08-08 08:00] VITALS: BP 125/41
[2018-08-08] MEDS: BLOOD SUGAR DIAGNOSTIC 1 EACH STRIP IN SCH ×4 (08:29→22:01)
[2018-08-08] MEDS: INSULIN REGULAR, HUMAN 100 UNIT/ML 3 ML VIAL SQ PRN ×2 (08:51→22:05)
[2018-08-08] MEDS: MUPIROCIN OINT 2% 22 GM TUBE SCH ×2 (08:57→22:02)
[2018-08-08 09:30] LABS: EOSINOPHILS % (MANUAL) 3 % (0-4); LYMPHOCYTES % (MANUAL) 7 % (16-48); MONOCYTES % (MANUAL) 6 % (0-11.0); NEUTROPHILS % (MANUAL) 84 (42-76)
--- NOTE | 2018-08-08 11:35 | NUR ---
MS RN NOTES PATIENT ROUNDING WITH MD. MD AWARE OF HBG 6.9. STATED HE WILL ORDER H&H AND WILL ORDER TO TRANSFUSE BLOOD IF HGB IS LESS THAN 7. WILL CONT TO MONITOR PT.
[2018-08-08 13:15] LABS: HEMOGLOBIN 7.7 g/dL (13.5-17.5)
[2018-08-08 16:00] VITALS: BP_SYST 143; BP_SYST 163; BP_DIAS 52
[2018-08-08] MEDS: VANCOMYCIN 500 MG in IV D5W 100 ML IV PRN (17:30)
[2018-08-08] MEDS: NYSTATIN (PYXIS) 500,000 UNIT/5 ML ORAL.SUSP PO SCH (19:07)
[2018-08-08 20:00] VITALS: BP 155/57
[2018-08-09] VITALS (11 sets, daily range): BP systolic 117–163; BP diastolic 36–68
[2018-08-09] MEDS: MEROPENEM 500 MG in IV NS 0.9% 50 ML IV SCH (04:44)
[2018-08-09] MEDS: METRONIDAZOLE 500MG/ NS 100ML 500 MG in PREMIX 1 EA IV SCH (04:44)
[2018-08-09 06:02] LABS: BASOPHILS # (AUTO) 0.1 /CMM (0.0-0.2); BASOPHILS % (AUTO) 0.8 % (0.0-2.0); EOSINOPHILS % (AUTO) 6.1 % (0.0-6.0); HEMATOCRIT 21 % (39-51); HEMOGLOBIN 7.2 g/dL (13.5-17.5); LYMPHOCYTES # (AUTO) 0.5 /CMM (0.8-4.8); LYMPHOCYTES % (AUTO) 7.1 % (20.0-44.0); MEAN CORPUSCULAR HGB CONC 34 g/dl (31.0-36.0); MEAN CORPUSCULAR VOLUME 97 fL (80-96); MONOCYTES # (AUTO) 0.6 /CMM (0.1-1.30); NEUTROPHILS # (AUTO) 5.6 /CMM (1.8-8.9); PLATELET COUNT (AUTO) 212 /CMM (150-450); RED BLOOD CELL COUNT(AUTO) 2.16 MIL/uL (4.5-6.0); WHITE BLOOD COUNT (AUTO) 7.2 K/uL (4.3-11.0)
[2018-08-09 06:25] LABS: CALCIUM, SERUM 8.3 mg/dL (8.5-10.1); CREATININE 6.4 mg/dL (0.6-1.3); POTASSIUM 4.5 mmol/L (3.5-5.1)
--- NOTE | 2018-08-09 07:00 | NUR ---
MS RN INITIAL NOTES PT RECEIVED IN BED, A/OX3. ABLE TO MAKE NEEDS KNOWN. ON 2L NC. LOPEZ MIDLINE TKO NO S/SX OF INFECTION. ON CONTACT PRECAUTIONS FOR MRSA NARES. WILL FOLLOW UP WITH MD REGARDING PROCEDURES TODAY. NO S/SX OF DISTRESS/ PAIN NOTED AT THIS TIME. BED IN LOCKED/LOWEST POSITION. CALL LIGHT IN REACH. WILL CONT TO MONITOR.
[2018-08-09] MEDS: BLOOD SUGAR DIAGNOSTIC 1 EACH STRIP IN SCH ×4 (08:11→21:21)
[2018-08-09] MEDS: MUPIROCIN OINT 2% 22 GM TUBE SCH ×2 (09:00→21:21)
[2018-08-09] MEDS: NYSTATIN (PYXIS) 500,000 UNIT/5 ML ORAL.SUSP PO SCH ×3 (09:00→16:32)
[2018-08-09] MEDS: INSULIN REGULAR, HUMAN 100 UNIT/ML 3 ML VIAL SQ PRN ×3 (12:06→21:28)
--- NOTE | 2018-08-09 19:05 | NUR ---
MS RN END OF SHIFT NOTES PT IN BED, RESTING. S/P 1 UNIT PRBC INFUSED VIA MIDLINE. NO S/SX OF REACTION NOTED. NO S/SX OF RESP DISTRESS. WILL ENDORSE TO PM NURSE FOR EVELYN.
--- NOTE | 2018-08-09 20:00 | NUR ---
RN INITIAL NOTES PT RECEIVED IN BED, A/OX3. ABLE TO MAKE NEEDS KNOWN. ON 2L NC. LOPEZ MIDLINE TKO NO S/SX OF INFECTION. ON CONTACT PRECAUTIONS FOR MRSA NARES. NO S/SX OF DISTRESS/ PAIN NOTED AT THIS TIME. BED IN LOCKED/LOWEST POSITION. CALL LIGHT IN REACH. WILL CONT TO MONITOR.
--- NOTE | 2018-08-09 20:10 | NUR ---
Rn Notes per Dr Dennison, primary MD or GI md needs to arrange for pts colonoscopy will endorse to am rn.
[2018-08-10 04:00] VITALS: BP 156/65
[2018-08-10 06:30] LABS: BASOPHILS % (AUTO) 0.7 % (0.0-2.0); EOSINOPHILS % (AUTO) 4.6 % (0.0-6.0); HEMATOCRIT 27 % (39-51); LYMPHOCYTES # (AUTO) 0.6 /CMM (0.8-4.8); MEAN CORPUSCULAR HGB CONC 34 g/dl (31.0-36.0); MEAN CORPUSCULAR VOLUME 96 fL (80-96); MONOCYTES # (AUTO) 0.5 /CMM (0.1-1.30); MONOCYTES % (AUTO) 8.3 % (2.0-12.0); NEUTROPHILS # (AUTO) 4.7 /CMM (1.8-8.9); NEUTROPHILS % (AUTO) 77.4 % (43.0-81.0); PLATELET COUNT (AUTO) 225 /CMM (150-450); RED BLOOD CELL COUNT(AUTO) 2.77 MIL/uL (4.5-6.0); WHITE BLOOD COUNT (AUTO) 6.1 K/uL (4.3-11.0)
--- NOTE | 2018-08-10 06:51 | NUR ---
RN CLOSING NOTES PT IS LYING ON BED.NO SIGNIFICANT CHANGES, NOTED IN THE SHIFT. WILL ENDORSED TO AM SHIFT RN FOR EVELYN.
--- NOTE | 2018-08-10 07:00 | NUR ---
MS RN INITIAL NOTES RECEIVED PT IN BED, NO S/SX OF DISTRESS NOTED. BUT WITH ELEVATED BP. ON 2L NC. PT REMOVES IT SOMETIMES. EDUCATED PT ON NEED TO MAINTAIN O2 ABOVE 92. PT REFUSES. WILL INFORM MD OF CHANGES. BED IN LOCKED/LOWEST POSITION. CALL LIGHT IN REACH. WILL CONT TO MONITOR.
[2018-08-10 07:05] LABS: CALCIUM, SERUM 8.6 mg/dL (8.5-10.1); POTASSIUM 4.8 mmol/L (3.5-5.1)
[2018-08-10] MEDS: BLOOD SUGAR DIAGNOSTIC 1 EACH STRIP IN SCH ×4 (07:43→21:01)
[2018-08-10 08:00] VITALS: BP 170/67
[2018-08-10] MEDS: INSULIN REGULAR, HUMAN 100 UNIT/ML 3 ML VIAL SQ PRN ×3 (08:08→21:14)
[2018-08-10] MEDS: NYSTATIN (PYXIS) 500,000 UNIT/5 ML ORAL.SUSP PO SCH ×3 (08:09→17:06)
[2018-08-10] MEDS: MUPIROCIN OINT 2% 22 GM TUBE SCH ×2 (08:19→20:56)
--- NOTE | 2018-08-10 12:00 | NUR ---
MS RN NOTES DISCUSSED WITH DR BENSON ABOUT COLONOSCOPY. HE WILL TALK TO DR HOOD. I ALSO TEXTED DR HOOD. AWAITING RESPONSE.
--- NOTE | 2018-08-10 12:00 | NUR ---
MS RN NOTES NOTIFIED MELANIE BENSON RE: HIGH BP AND DIARRHEA. AWAITING ORDERS
[2018-08-10 16:00] VITALS: BP 162/71
--- NOTE | 2018-08-10 18:39 | NUR ---
MS RN NOTES PT IN BED, RESTING NO S/SX OF RESP DISTRESS. DISCUSSED WITH DR BENSON AND CHARGE NURSE, SOON REGARDING COLONOSCOPY PROCEDURE. WILL ENDORSE TO PM NURSE FOR EVELYN.
--- NOTE | 2018-08-10 20:30 | NUR ---
MS Nursing Note: Lying in bed A/O x4 O2 @ 2L n/c Mepilex to Left ankle C/D/I R upper Midline intact. Remains on Isolation MRSA to Nares. Left BKA Siderails up Call light within reach.
[2018-08-10 22:18] VITALS: BP 153/86
[2018-08-11 04:39] VITALS: BP 163/70
--- NOTE | 2018-08-11 06:33 | NUR ---
End of Shift report: Remains in isolation of MRSA of nares. on Med surg status 02 @ 2L n/c Midline to Right upper arm intact N.S. 0.9% infusing @ 5 cc hr. Denies of any disress Side rails up Call Light within reach.
[2018-08-11 07:26] LABS: BASOPHILS % (AUTO) 0.5 % (0.0-2.0); EOSINOPHILS % (AUTO) 4.1 % (0.0-6.0); HEMATOCRIT 26 % (39-51); HEMOGLOBIN 8.8 g/dL (13.5-17.5); LYMPHOCYTES # (AUTO) 0.6 /CMM (0.8-4.8); LYMPHOCYTES % (AUTO) 8.1 % (20.0-44.0); MEAN CORPUSCULAR HGB CONC 34 g/dl (31.0-36.0); MEAN CORPUSCULAR VOLUME 96 fL (80-96); MONOCYTES # (AUTO) 0.5 /CMM (0.1-1.30); MONOCYTES % (AUTO) 6.5 % (2.0-12.0); NEUTROPHILS # (AUTO) 5.6 /CMM (1.8-8.9); NEUTROPHILS % (AUTO) 80.8 % (43.0-81.0); PLATELET COUNT (AUTO) 219 /CMM (150-450); WHITE BLOOD COUNT (AUTO) 6.9 K/uL (4.3-11.0)
--- NOTE | 2018-08-11 07:34 | NUR ---
ms rn note patent in bed ,resting comfortably in bed at this time , rt ua arm midline in place , on 2l nc no sob noted , at this time , bed in lowest and locked position , call light within reach , will cont to monitor closely
[2018-08-11 07:48] LABS: CALCIUM, SERUM 8.4 mg/dL (8.5-10.1); CREATININE 6.4 mg/dL (0.6-1.3); MAGNESIUM 1.9 mg/dL (1.8-2.4); PHOSPHORUS 5.2 mg/dL (2.5-4.9); POTASSIUM 4.9 mmol/L (3.5-5.1)
[2018-08-11 08:00] VITALS: BP 161/71
[2018-08-11] MEDS: MUPIROCIN OINT 2% 22 GM TUBE SCH ×2 (08:39→21:26)
[2018-08-11] MEDS: NYSTATIN (PYXIS) 500,000 UNIT/5 ML ORAL.SUSP PO SCH ×3 (08:40→16:59)
[2018-08-11] MEDS: BLOOD SUGAR DIAGNOSTIC 1 EACH STRIP IN SCH ×4 (08:40→21:45)
--- NOTE | 2018-08-11 11:03 | NUR ---
MS RN NOTE BP 161/71 HR 66 NO BP MEDS SPOKE WITH DR SANTO , STATED NO NEED BP MEDS AT THIS TIME, WILL CONT TO MONITOR CLOSELY Addendum: 08/11/18 at 1324 by DINORA PEREZ RN [id number] santo notified that patient has loose stool stated no need to collect stool specimen
--- NOTE | 2018-08-11 12:09 | NUR ---
MS RN NOTE SPOKE WITH DR PINON ONSHORE DIVER NOTIFIED THAT BP 161/71 STATED NO NEED BP MEDS AT THIS TIME WILL JYOTSNA
[2018-08-11] MEDS: INSULIN REGULAR, HUMAN 100 UNIT/ML 3 ML VIAL SQ PRN ×2 (12:43→17:30)
--- NOTE | 2018-08-11 14:03 | NUR ---
ms rn note assisted to eat lunch , ate 50% of diet . keep clean dry will cont to monitor closely
--- NOTE | 2018-08-11 14:34 | NUR ---
ms rn note stool for ob collected as ordered
--- NOTE | 2018-08-11 15:16 | NUR ---
ms rn note kci matrass applied as ordered, keep clean dry, turn reposition
[2018-08-11 16:00] VITALS: BP 150/65
[2018-08-11 16:25] LABS: OCCULT BLOOD STOOL POSITIVE (NEGATIVE)
--- NOTE | 2018-08-11 18:25 | NUR ---
MS RN NOTE HD STARTED ORDERED ,HAVING DINNER ,FED BY PATIENT ACCESS REGISTRAR, WILL MONITOR
--- NOTE | 2018-08-11 19:17 | NUR ---
MS RN NOTE PATIENT REPORT GIVEN BEDSIDE. PATIENT CURRENTLY RECEIVING DIALYSIS NO S/S OF DISTRESS. PATIENT A/O X 3. DENIES CHEST PAIN/ SOB. PATIENT HAS LOPEZ MIDLINE PATENT NO S/S OF INFECTION. RN WILL CONTINUE TO MONITOR. SAFETY PRECAUTIONS IN PLACE
[2018-08-11 20:00] VITALS: BP 155/51
--- NOTE | 2018-08-11 20:15 | NUR ---
MS RN NOTE HD COMPLETED 2.5 L REMOVED PATIENT STABLE NO S/S OF DISTRESS. RN WILL CONTINUE TO MONITOR.
[2018-08-11 20:51] VITALS: BP 155/51
[2018-08-12 04:00] VITALS: BP 146/66
[2018-08-12 04:31] VITALS: BP 146/66
[2018-08-12 06:57] LABS: BASOPHILS % (AUTO) 0.5 % (0.0-2.0); EOSINOPHILS % (AUTO) 3.6 % (0.0-6.0); HEMATOCRIT 26 % (39-51); HEMOGLOBIN 8.8 g/dL (13.5-17.5); LYMPHOCYTES # (AUTO) 0.6 /CMM (0.8-4.8); LYMPHOCYTES % (AUTO) 8.2 % (20.0-44.0); MEAN CORPUSCULAR HGB CONC 34 g/dl (31.0-36.0); MEAN CORPUSCULAR VOLUME 96 fL (80-96); MONOCYTES # (AUTO) 0.5 /CMM (0.1-1.30); MONOCYTES % (AUTO) 6.9 % (2.0-12.0); NEUTROPHILS # (AUTO) 5.7 /CMM (1.8-8.9); NEUTROPHILS % (AUTO) 80.8 % (43.0-81.0); PLATELET COUNT (AUTO) 220 /CMM (150-450); RED BLOOD CELL COUNT(AUTO) 2.69 MIL/uL (4.5-6.0)
--- NOTE | 2018-08-12 07:00 | NUR ---
RN AM SHIFT NOTE PATIENT ALERT ORIENTED X3. IN BED, SAFETY MEASURES IN PLACE. IV PATENT AND INTACT. ALL NEEDS MET AT THIS TIME. MONITOR PATIENT, NO DIALYSIS TODAY. NEPHROLOGY SAW PATIENT THIS AM AWARE OF LAB VALUES AND INCREASED BP, NEW ORDER FOR NORVASC AT THIS TIME. POTASSIUM STILL ELEVATED, MD SNOWDEN, NO NEW ORERS AT THIS TIME. COTNINEU TO MONITOR.
[2018-08-12 07:15] LABS: CALCIUM, SERUM 8.6 mg/dL (8.5-10.1); CREATININE 5.5 mg/dL (0.6-1.3); POTASSIUM 5.3 mmol/L (3.5-5.1)
[2018-08-12] MEDS: BLOOD SUGAR DIAGNOSTIC 1 EACH STRIP IN SCH ×4 (07:30→21:29)
[2018-08-12 08:00] VITALS: BP 181/89
[2018-08-12] MEDS: NYSTATIN (PYXIS) 500,000 UNIT/5 ML ORAL.SUSP PO SCH ×3 (08:50→17:33)
[2018-08-12] MEDS: MUPIROCIN OINT 2% 22 GM TUBE SCH ×2 (08:50→21:27)
[2018-08-12] MEDS: INSULIN REGULAR, HUMAN 100 UNIT/ML 3 ML VIAL SQ PRN ×2 (09:19→21:30)
[2018-08-12] MEDS ORDERED: AMLODIPINE BESYLATE 5 MG TABLET PO SCH (10:30)
[2018-08-12 12:00] VITALS: BP 140/82
[2018-08-12] MEDS: hydrALAZINE HCL 50 MG TABLET PO SCH ×3 (13:11→21:29)
[2018-08-12 16:00] VITALS: BP 165/73
--- NOTE | 2018-08-12 19:30 | NUR ---
MS RN NOTE PATIENT RECEIVED IN BED A/O X 2-3, MINIMALLY VERBAL. PATIENT SHRUGS RESPONSE. DENIES CHEST PAIN/DISCOMFORT. SAFETY PRECAUTIONS IN PLACE. PATIENT REPOSITIONED FOR COMFORT. RN WILL CONTINUE TO MONITOR.
[2018-08-12 20:00] VITALS: BP 173/67
[2018-08-13 04:00] VITALS: BP 171/72
--- NOTE | 2018-08-13 06:26 | NUR ---
MS RN NOTE NO ACUTE CHANGES THROUGH THE SHIFT, NO S/S OF DISTRESS. ENDORSES POC TO AM FOR EVELYN. SAFETY PRECAUTIONS IN PLACE ALL NEEDS MET.
[2018-08-13 06:58] LABS: BASOPHILS % (AUTO) 0.4 % (0.0-2.0); EOSINOPHILS % (AUTO) 2.6 % (0.0-6.0); HEMATOCRIT 26 % (39-51); HEMOGLOBIN 8.9 g/dL (13.5-17.5); LYMPHOCYTES # (AUTO) 0.7 /CMM (0.8-4.8); LYMPHOCYTES % (AUTO) 6.6 % (20.0-44.0); MEAN CORPUSCULAR HGB CONC 34 g/dl (31.0-36.0); MEAN CORPUSCULAR VOLUME 96 fL (80-96); MONOCYTES # (AUTO) 0.6 /CMM (0.1-1.30); MONOCYTES % (AUTO) 6.2 % (2.0-12.0); NEUTROPHILS # (AUTO) 8.3 /CMM (1.8-8.9); NEUTROPHILS % (AUTO) 84.2 % (43.0-81.0); PLATELET COUNT (AUTO) 240 /CMM (150-450); RED BLOOD CELL COUNT(AUTO) 2.74 MIL/uL (4.5-6.0); WHITE BLOOD COUNT (AUTO) 9.8 K/uL (4.3-11.0)
--- NOTE | 2018-08-13 07:09 | NUR ---
MS RN NOTES HEMODIALYSIS AT BEDSIDE. WILL HOLD ALL MEDICATIONS FOR NOW.
--- NOTE | 2018-08-13 07:10 | NUR ---
MS RN OPENING NOTES PATIENT RECEIVED IN BED A/O X 3, MINIMALLY VERBAL. PATIENT SHRUGS RESPONSE. DENIES CHEST PAIN/DISCOMFORT AT THIS TIME. SAFETY PRECAUTIONS IN PLACE. CALL LIGHT WITHIN REACH. PATIENT REPOSITIONED FOR COMFORT. HD AT BEDSIDE. WILL CONTINUE TO MONITOR.
[2018-08-13 07:13] LABS: CALCIUM, SERUM 8.8 mg/dL (8.5-10.1); CREATININE 6.9 mg/dL (0.6-1.3); POTASSIUM 5.2 mmol/L (3.5-5.1)
[2018-08-13] MEDS ORDERED: hydrALAZINE HCL 25 MG TABLET PO SCH (07:30)
[2018-08-13] MEDS: BLOOD SUGAR DIAGNOSTIC 1 EACH STRIP IN SCH ×3 (07:57→17:25)
[2018-08-13 08:00] VITALS: BP_SYST 159; BP_SYST 172; BP_DIAS 67; BP_DIAS 68
[2018-08-13] MEDS: MUPIROCIN OINT 2% 22 GM TUBE SCH (08:58)
[2018-08-13] MEDS ORDERED: AMLODIPINE BESYLATE 5 MG TABLET PO SCH (09:00)
[2018-08-13] MEDS: NYSTATIN (PYXIS) 500,000 UNIT/5 ML ORAL.SUSP PO SCH ×3 (09:01→17:24)
[2018-08-13] MEDS: hydrALAZINE HCL 50 MG TABLET PO SCH ×3 (09:17→17:25)
[2018-08-13 12:00] VITALS: BP 149/60
[2018-08-13] MEDS: INSULIN REGULAR, HUMAN 100 UNIT/ML 3 ML VIAL SQ PRN ×2 (12:21→17:26)
[2018-08-13 16:00] VITALS: BP 136/58
[2018-08-13] MEDS: ACETAMINOPHEN 325 MG TABLET PO PRN (17:24)
[2018-08-13 17:25] VITALS: BP 136/58
--- NOTE | 2018-08-13 18:25 | NUR ---
MS RUTLEDGE NOTES GAVE REPORT TO MATY SANDERS OF [facility] FOR EVELYN.
--- NOTE | 2018-08-13 18:50 | NUR ---
INFRASTRUCTURE TECH NOTES PATIENT STABLE, ALERT AND ORIENTED X3. VITALS WNL. DENIES CHEST PAIN/DISCOMFORT AT THIS TIME. WOUND PICTURES TAKEN AND RECORDED. EXIT CARE DONE. SAFETY PRECAUTIONS IN PLACE THROUGHOUT SHIFT. PATIENT REPOSITIONED PER PROTOCOL. ALL MD ORDERS ATTENDED. PATIENT LEFT THE UNIT WITH AMBULANCE PERSONNEL VIA GURNEY TO BE SENT TO [facility].
== END 2018-08-13 20:23 | DRG 314 ==
LOC: ER 21:33 → TELE1 08-02 02:32 → TELE-TD 08-02 02:36 → MEDSG1 08-03 09:56
PROVIDERS: ADMIT Nurse Practitioner Acute Care; ATTEND Nurse Practitioner Acute Care
PROC: 05H533Z Insertion of Infusion Device into Right Subclavian Vein, Percutaneous Approach (ICD-10-PCS; 2018-08-02)
PROC: B546ZZA Ultrasonography of Right Subclavian Vein, Guidance (ICD-10-PCS; 2018-08-02)
PROC: 30233N1 Transfusion of Nonautologous Red Blood Cells into Peripheral Vein, Percutaneous Approach (ICD-10-PCS; principal; 2018-08-03)
PROC: 5A1D70Z Performance of Urinary Filtration, Intermittent, Less than 6 Hours Per Day (ICD-10-PCS; 2018-08-03)
PROC: 5A1D70Z Performance of Urinary Filtration, Intermittent, Less than 6 Hours Per Day (ICD-10-PCS; 2018-08-05)
PROC: 5A1D70Z Performance of Urinary Filtration, Intermittent, Less than 6 Hours Per Day (ICD-10-PCS; 2018-08-07)
PROC: 5A1D70Z Performance of Urinary Filtration, Intermittent, Less than 6 Hours Per Day (ICD-10-PCS; 2018-08-09)
PROC: 5A1D70Z Performance of Urinary Filtration, Intermittent, Less than 6 Hours Per Day (ICD-10-PCS; 2018-08-11)
PROC: 5A1D70Z Performance of Urinary Filtration, Intermittent, Less than 6 Hours Per Day (ICD-10-PCS; 2018-08-13)
DX: T82.838A Hemorrhage due to vascular prosthetic devices, implants and grafts, initial encounter (principal); A41.9 Sepsis, unspecified organism; N18.6 End stage renal disease; R53.2 Functional quadriplegia; G92 Toxic encephalopathy; I12.0 Hypertensive chronic kidney disease with stage 5 chronic kidney disease or end stage renal disease; D68.59 Other primary thrombophilia; D62 Acute posthemorrhagic anemia; E87.0 Hyperosmolality and hypernatremia; E87.4 Mixed disorder of acid-base balance; K92.2 Gastrointestinal hemorrhage, unspecified; Y83.9 Surgical procedure, unspecified as the cause of abnormal reaction of the patient, or of later complication, without mention of misadventure at the time of the procedure; Y92.89 Other specified places as the place of occurrence of the external cause; D53.9 Nutritional anemia, unspecified; E78.5 Hyperlipidemia, unspecified; E86.1 Hypovolemia; F41.9 Anxiety disorder, unspecified; F39 Unspecified mood [affective] disorder; N40.0 Benign prostatic hyperplasia without lower urinary tract symptoms; Z88.0 Allergy status to penicillin; K52.9 Noninfective gastroenteritis and colitis, unspecified; Z99.2 Dependence on renal dialysis; E11.22 Type 2 diabetes mellitus with diabetic chronic kidney disease; Z89.512 Acquired absence of left leg below knee; L89.510 Pressure ulcer of right ankle, unstageable; L89.150 Pressure ulcer of sacral region, unstageable; L89.320 Pressure ulcer of left buttock, unstageable; L89.310 Pressure ulcer of right buttock, unstageable; Z22.322 Carrier or suspected carrier of Methicillin resistant Staphylococcus aureus; K62.89 Other specified diseases of anus and rectum
CPT/HCPCS: 36415; 36569; 36600; 70450-TC; 71045-TC; 80048-TC; 80053-TC; 80061-TC; 80076-TC; 80202-TC; 82272-TC; 82378; 82728-TC; 82962-TC; 83540-TC; 83605-TC; 83735-TC; 84100-TC; 84153-TC; 84154-TC; 84155; 84165; 84443-TC; 85025-TC; 85027-TC; 85730-TC; 86301; 86706; 86803; 86850-TC; 86921-TC; 87040-TC; 87081-TC; 87340; 90935-TC; 93971-TC; 94799-TC; A4216; A4349; A6402; G0378; J1815; J2185; J2405; J2704; J3370; J3490; J7030; J7040; J7050; J7060; P9016-BL

== ENCOUNTER 2018-10-04 21:05 | Inpatient (IN) | payer MEDICARE ==
[~2018-10-04] VITALS: Ht 170.2 cm; Wt 81.2 kg
[~2018-10-04 21:05] MED LIST: ACET-868 PO; AMIN30LI2 PO; AMLO10TA4 PO; ASCO500T9 PO; ASPI-1152 PO; BLOO-668 IN; DORZ10DR13 EACHEYE; FOLI0.8T2 PO; GABA-534 PO; HYDR-3026 PO; HYDR-4077 PO; INSU100V3 SQ; MAGN400O6 PO; NEPA3DRO RIGHTEYE; OMEG-88 PO; PRAV40TA3 PO; PROP10TA10 PO; SERT50TA PO; SEVE800T8 PO; TERA10CA4 PO
--- NOTE | 2018-10-04 21:21 | NUR ---
BIBRA. C/O "BEING TREATED FOR PNEUMONIA AT [facility]. FEELS WARM TO TOUCH MAY HAVE A FEVER". PT IS AOX1, NON-AMBULATORY. TACHYPNEIC, SATTING AT 80%, PLACED ON 4L NC. SKIN IS MOIST, PRESSURE ULCER AT SACRUM. BKA ON LEFT LEG. NO ACUTE DISTRESS NOTED. READY FOR EVAL.
[2018-10-04 21:47] LABS: BASOPHILS % (AUTO) 0.1 % (0.0-2.0); HEMATOCRIT 26 % (39-51); HEMOGLOBIN 8.9 g/dL (13.5-17.5); LYMPHOCYTES # (AUTO) 0.1 /CMM (0.8-4.8); LYMPHOCYTES % (AUTO) 1.7 % (20.0-44.0); MEAN CORPUSCULAR HGB CONC 34 g/dl (31.0-36.0); MEAN CORPUSCULAR VOLUME 96 fL (80-96); MONOCYTES # (AUTO) 0.7 /CMM (0.1-1.30); MONOCYTES % (AUTO) 7.9 % (2.0-12.0); NEUTROPHILS # (AUTO) 7.6 /CMM (1.8-8.9); NEUTROPHILS % (AUTO) 90.3 % (43.0-81.0); PLATELET COUNT (AUTO) 172 /CMM (150-450); RED BLOOD CELL COUNT(AUTO) 2.73 MIL/uL (4.5-6.0); WHITE BLOOD COUNT (AUTO) 8.5 K/uL (4.3-11.0)
[2018-10-04 21:57] LABS: CALCIUM, SERUM 8.6 mg/dL (8.5-10.1); CREATININE 3.7 mg/dL (0.6-1.3); POTASSIUM 4.2 mmol/L (3.5-5.1)
[2018-10-04 22:03] LABS: ALBUMIN 2.6 g/dL (3.4-5.0); BILIRUBIN,DIRECT 0.1 mg/dL (0.0-0.2); BILIRUBIN,TOTAL 0.4 mg/dL (0.2-1.0); TOTAL PROTEIN, SERUM 6.2 g/dL (6.4-8.2)
--- NOTE | 2018-10-04 22:12 | NUR ---
Whitney dunn in EDM - 10/04/18 at 2331 by RUSSELL PT DOES NOT PRODUCE URINE. URINE CANCELLED PER MD.
--- NOTE | 2018-10-04 22:12 | NUR ---
ATTEMPTED TO GET URINE VIA STRAIGHT CATH, PT IS DRY. AWARE
[2018-10-04] MEDS ORDERED: IV NS 0.9% 1,000 ML BAG IV ONE (22:30)
[2018-10-04] MEDS ORDERED: ACETAMINOPHEN 325 MG TABLET PO ONE (22:30)
[2018-10-04] MEDS ORDERED: ACETAMINOPHEN ES 500 MG TABLET ONE (22:30)
[2018-10-04] MEDS ORDERED: LEVOFLOXACIN 750 MG /D5W 150ML 150 ML IV ONE (22:58)
[2018-10-04] MEDS ORDERED: LEVOFLOXACIN 750 MG /D5W 150ML PIGGYBACK IV ONE (23:00)
--- NOTE | 2018-10-04 23:07 | NUR ---
IVF AND ABX INFUSING. PT TOLERATING WELL. WILL CONT TO MONITOR.
[2018-10-05] MEDS ORDERED: ALBUTEROL FS 2.5 MG/0.5 ML VIAL.NEB NEB ONE (00:30)
[2018-10-05] MEDS ORDERED: ALBUTEROL FS 2.5 MG/0.5 ML VIAL.NEB ONE (00:50)
[2018-10-05] MEDS ORDERED: FUROSEMIDE 40 MG/4 ML VIAL ONE (00:54)
--- NOTE | 2018-10-05 00:56 | NUR ---
REPORT GIVEN TO DAI RUTLEDGE.
[2018-10-05] MEDS ORDERED: FUROSEMIDE 40 MG/4 ML VIAL IV ONE (01:00)
[2018-10-05 02:30] VITALS: BP 143/66
[2018-10-05] MEDS ORDERED: HYDROCODONE/APAP 5/325MG 1 EACH TABLET PO PRN (03:00)
[2018-10-05] MEDS ORDERED: PIPERACILLIN /TAZOBACTAM 3.375 G in IV D5W 50 ML IV ONE (03:00)
[2018-10-05] MEDS ORDERED: ACETAMINOPHEN 650 MG/20.3 ML UDC NG PRN (03:00)
[2018-10-05] MEDS ORDERED: VANCOMYCIN 1 GM in IV D5W 250 ML IV SCH (03:00)
[2018-10-05] MEDS ORDERED: ONDANSETRON HCL/PF 4 MG/2 ML VIAL IVP PRN (03:00)
[2018-10-05] MEDS ORDERED: VANCOMYCIN 1 GM in IV D5W 250 ML IV ONE (04:00)
[2018-10-05] MEDS: IV NS 0.9% 1,000 ML IV PRN ×2 (04:00→17:57)
[2018-10-05] MEDS ORDERED: VANCOMYCIN 1 GM VIAL ONE (04:15)
[2018-10-05] MEDS ORDERED: PIPERACILLIN /TAZOBACTAM 3.375 G VIAL IV ONE (04:16)
[2018-10-05 04:27] VITALS: BP 140/68
[2018-10-05] MEDS ORDERED: PIPERACILLIN /TAZOBACTAM 3.375 G in IV D5W 50 ML IV SCH (06:00)
--- NOTE | 2018-10-05 06:50 | NUR ---
RN MATERNAL CHILD closing notes Pt is alert and oriented X1. Pt is confused. Pt is resting in bed comfortably. Respiration is normal. No SOB. Pt is on 3 L NC. No S/S of distress noted. IV sites at L Forearm # 16 g is intact, patent nd infusing well NS at 75 ml/hr. Right chest Permacath is intact, and patent. Left upper arm AV fistula no bruit and no thrill. Pt is on patient monitor - SR. VS is stable. Routine meds given and all needs met. Wound culture is done. Safety precautions is maintained and call light is within reach. Will endorse to morning nurse for EVELYN.
--- NOTE | 2018-10-05 07:47 | NUR ---
VEHICLE DISMANTLER OPENING NOTES Received patient on 3L o2 nasal cannula, patient showing signs of distress and is saturating 86%. Increased o2 flow to 5L nasal cannula and RT is consulted. PRN breathing tx ordered and ABG ordered due to change of status. Patient unable to state his location but does know his name. Bed at the lowest setting, call light within reach.
[2018-10-05 07:55] LABS: ABG BASE EXCESS -2.9 mmol/L; ABG OXYGEN SATURATION 90.1 % (92.0-98.5); ABG PCO2 36.7 mmHg (35.0-45.0); ABG PO2 61.2 mmHg (75.0-100.0); AaDO2 181.8 mmHg; COHb 0.7 % (0.5-1.5); MetHb 0.7 % (0.0-1.5); O2Hb 88.8 % (94.0-97.0); SITE, ABG Right Radial; VENT MODE, BG NC 5L
[2018-10-05 08:00] VITALS: BP 142/60
[2018-10-05] MEDS ORDERED: IPRATROPIUM NEB FS 0.5 MG/2.5 ML AMPUL.NEB NEB PRN (08:00)
[2018-10-05] MEDS ORDERED: ALBUTEROL FS 2.5 MG/3 ML VIAL.NEB NEB PRN (08:00)
[2018-10-05] MEDS: HEPARIN SODIUM, PORCINE 5000 UNITS/1 ML VIAL SQ SCH ×2 (09:00→21:00)
--- NOTE | 2018-10-05 09:05 | NUR ---
TERRAZZO FINISHER NOTES PATIENTS H/H LOW AT THIS TIME. HEPARIN MORNING DOSE HELD. DR. DENNIS BROWN.
[2018-10-05] MEDS ORDERED: SENN-168 PO (09:19)
[2018-10-05] MEDS ORDERED: INSU100V11 SQ (09:19)
[2018-10-05] MEDS ORDERED: FOLI1TAB16 PO (09:19)
[2018-10-05] MEDS ORDERED: ATOR10TA PO (09:19)
[2018-10-05] MEDS ORDERED: PANT40TA2 PO (09:19)
[2018-10-05] MEDS ORDERED: BLOOD SUGAR DIAGNOSTIC 1 EACH STRIP IN SCH (12:00)
[2018-10-05] MEDS ORDERED: EPOETIN ALFA (10,000 UNIT) 10,000 UNIT/ML VIAL IV ONE (12:00)
[2018-10-05] MEDS: CLINDAMYCIN 600 MG in IV D5W 50 ML IV SCH ×2 (12:03→21:23)
[2018-10-05 12:47] LABS: IRON, SERUM 8 ug/dl (50-175); TOTAL IRON BINDING CAPACITY 75 ug/dl (250-450)
[2018-10-05] MEDS: hydrALAZINE HCL 50 MG TABLET PO SCH ×3 (13:00→21:23)
[2018-10-05] MEDS: ASPIRIN EC 81 MG TABLET.DR PO SCH (13:00)
[2018-10-05] MEDS ORDERED: SEVELAMER CARBONATE 800 MG TABLET PO SCH (13:00)
[2018-10-05] MEDS ORDERED: DEXTROSE 50%-WATER 50 ML DISP.SYRIN IV PRN (13:00)
[2018-10-05] MEDS: SERTRALINE HCL 50 MG TABLET PO SCH (13:00)
[2018-10-05] MEDS: BLOOD SUGAR DIAGNOSTIC 1 EACH STRIP VI SCH ×3 (13:11→21:41)
[2018-10-05] MEDS: GABAPENTIN 300 MG CAPSULE PO SCH ×2 (13:28→21:23)
[2018-10-05] MEDS: INSULIN REGULAR, HUMAN 100 UNIT/ML 3 ML VIAL SQ PRN (13:54)
[2018-10-05 16:00] VITALS: BP 125/75
--- NOTE | 2018-10-05 17:29 | NUR ---
MS RN NOTES HD done at this time. 1.5 Litter of fluid removed. HD again tomorrow am.
[2018-10-05] MEDS: SEVELAMER CARBONATE 0.8 GM POWD.PACK PO SCH (17:38)
[2018-10-05] MEDS: PROPRANOLOL HCL 10 MG TABLET PO SCH (17:38)
--- NOTE | 2018-10-05 18:16 | NUR ---
RN MS NOTES Patient remains on 4L nasal cannula, no sob noted. Patient shows no s/s of pain at this time. Vital signs stable all shift. Patient had 1.5 L fluid removed from HD. Left FA IV #18 unobstructed and flows easily, 75 mL per hour NS being infused. bed at the lowest setting, call light within reach. Will give report to NOC RN for [facility] bedside.
[2018-10-05 20:00] VITALS: BP 127/64
--- NOTE | 2018-10-05 20:00 | NUR ---
RN NOTES RECEIVED PATIENT IN BED, ALERT AND ORIENTED X2, ON 4LPM VIA NC, SPO2 99%, NOT IN APPARENT PAIN, KEPT ON HIGH FOWLERS, ANURIC, KEPT SAFE AND COMFORTABLE, WILL CONTINUE TO MONITOR.
--- NOTE | 2018-10-05 21:16 | NUR ---
Per MEAGAN Quintanilla, hold Heparin tonight 10/05/18 due to low H/H
[2018-10-05] MEDS: ATORVASTATIN 10 MG TABLET PO SCH (21:23)
[2018-10-05] MEDS: SENNOSIDES 8.6 MG TABLET PO SCH (21:23)
[2018-10-05] MEDS: TERAZOSIN HCL 5 MG CAPSULE PO SCH (21:27)
[2018-10-05] MEDS: *INSULIN REGULAR(HUMULIN R)HUM 100 UNIT/ML VIAL SQ PRN (21:43)
[2018-10-06] MEDS: CLINDAMYCIN 600 MG in IV D5W 50 ML IV SCH (04:51)
[2018-10-06] MEDS: GABAPENTIN 300 MG CAPSULE PO SCH ×3 (05:00→21:45)
[2018-10-06] MEDS: PROPRANOLOL HCL 10 MG TABLET PO SCH ×2 (05:37→17:34)
[2018-10-06] MEDS: INSULIN REGULAR, HUMAN 100 UNIT/ML 3 ML VIAL SQ PRN ×3 (06:43→17:42)
--- NOTE | 2018-10-06 06:52 | NUR ---
RN NOTES PATIENT IS ALERT AND ORIENTED X2, ON 4LPM VIA NC, SPO2 98%, DENIES PAIN AT THIS TIME, AFEBRILE DURING SHIFT, ABLE TO SWALLOW CRUSHED MEDICATIONS, SLIGHT FOREARM SWELLING, NS HELD, HD TODAY, AWAITING WOUND CARE, MONITOR LABS, CULTURES, REPEAT CXR, SUPPORTIVE CARE
[2018-10-06 07:00] LABS: BASOPHILS % (AUTO) 0.3 % (0.0-2.0); EOSINOPHILS % (AUTO) 0.2 % (0.0-6.0); HEMATOCRIT 25 % (39-51); HEMOGLOBIN 8.4 g/dL (13.5-17.5); LYMPHOCYTES # (AUTO) 0.3 /CMM (0.8-4.8); LYMPHOCYTES % (AUTO) 3.6 % (20.0-44.0); MEAN CORPUSCULAR HGB CONC 33 g/dl (31.0-36.0); MEAN CORPUSCULAR VOLUME 97 fL (80-96); MONOCYTES # (AUTO) 0.6 /CMM (0.1-1.30); MONOCYTES % (AUTO) 7.2 % (2.0-12.0); NEUTROPHILS % (AUTO) 88.7 % (43.0-81.0); PLATELET COUNT (AUTO) 155 /CMM (150-450); RED BLOOD CELL COUNT(AUTO) 2.59 MIL/uL (4.5-6.0)
[2018-10-06 07:09] LABS: CALCIUM, SERUM 8.7 mg/dL (8.5-10.1); CREATININE 3.6 mg/dL (0.6-1.3); MAGNESIUM 1.9 mg/dL (1.8-2.4); PHOSPHORUS 3.7 mg/dL (2.5-4.9)
[2018-10-06] MEDS: BLOOD SUGAR DIAGNOSTIC 1 EACH STRIP VI SCH ×4 (07:30→21:50)
--- NOTE | 2018-10-06 07:57 | NUR ---
MS RN OPENING NOTES Received Patient comfortable, resting in bed, in bed side dialysis. A/O x 2. VS stable with no acute distress. Breathing even and unlabored on 4LPM via NC with no respiratory distress. No signs and symptoms of pain at this time. RCW PermaCath clean, dry, intact and in place and operational. Patient being dialyzed at this time. 16g PIV on LFA clean, dry, intact and flushing well. Safety precautions in place. Bed locked and set to lowest position with side rails x 2 up. Will continue to monitor.
[2018-10-06 08:00] VITALS: BP 130/59
[2018-10-06] MEDS: SEVELAMER CARBONATE 0.8 GM POWD.PACK PO SCH ×3 (08:00→17:34)
[2018-10-06] MEDS: hydrALAZINE HCL 50 MG TABLET PO SCH ×4 (09:00→21:32)
[2018-10-06] MEDS: HEPARIN SODIUM, PORCINE 5000 UNITS/1 ML VIAL SQ SCH ×2 (09:00→21:31)
--- NOTE | 2018-10-06 09:01 | NUR ---
MS RN NOTES Patient still undergoing dialysis at this moment. Unable to administer Renvela as ordered at this time d/t instructions to "give with meals, give other drugs 1hr before or 3hrs after". Will administer the other AM medications after dialysis. Will continue to monitor.
--- NOTE | 2018-10-06 09:50 | NUR ---
MS RN NOTES Dialysis done at this time. Patient resting and asleep in bed. VS stable. Noted 2 Liters removed. Administered AM medications. Will continue to monitor.
[2018-10-06] MEDS: PANTOPRAZOLE 40 MG TABLET.DR PO SCH (10:18)
[2018-10-06] MEDS: FOLIC ACID 1 MG TABLET PO SCH (10:19)
[2018-10-06] MEDS: ASCORBIC ACID 500 MG TABLET PO SCH (10:20)
[2018-10-06] MEDS: AMLODIPINE BESYLATE 10 MG TABLET PO SCH (10:20)
[2018-10-06] MEDS: FERROUS SULFATE (325 MG) 325 MG/TAB TABLET PO SCH ×2 (10:22→16:54)
--- NOTE | 2018-10-06 10:32 | NUR ---
MS RN NOTES Per Dr. Abbott, HOLD HEPARIN. Hgb/Hct = 8.4/25. Will continue to monitor.
[2018-10-06] MEDS ORDERED: FEE PK DOSING 1 MIN EA MC ONE (12:53)
[2018-10-06] MEDS: SERTRALINE HCL 50 MG TABLET PO SCH (13:32)
[2018-10-06] MEDS: ASPIRIN EC 81 MG TABLET.DR PO SCH (13:32)
[2018-10-06 16:00] VITALS: BP 113/63
[2018-10-06] MEDS ORDERED: VANCOMYCIN 1 GM in IV D5W 250 ML IV ONE (16:00)
--- NOTE | 2018-10-06 18:02 | NUR ---
MS RUTLEDGE NOTES Obtained consent from Michael Acosta (friend) for PermaCath Removal via phone at this time. Explained risks and benefits. Patients friend agreed to procedure. Cosigned with Anthony RUTLEDGE and placed consent in chart. Will continue to monitor.
--- NOTE | 2018-10-06 19:18 | NUR ---
MS RN CLOSING NOTES Patient comfortable and resting in bed. A/O x 2. VS stable with no acute distress. Breathing even and unlabored on 4LPM via NC with no respiratory distress. No signs and symptoms of pain at this time. RCW PermaCath clean, dry, intact. 16g PIV on LFA clean, dry, intact and flushing well. Safety precautions in place. Bed locked and set to lowest position with side rails x 2 up. Will endorse plan of care to oncoming shift.
--- NOTE | 2018-10-06 19:45 | NUR ---
RN NOTES RECEIVED PATIENT AWAKE, ALERT ORIENTED X2, ON O2 AT 4LPM VIA NC SATING 97% -99%, SAFETY MEASURES IN PLACE, REPOSITIONED FOR COMFORT, ANURIC, NO ACUTE SIGNS OF RESPIRATORY / CARDIAC DISTRESS, DENIES PAIN AT THIS TIME, KEEP COMFORTABLE, WILL CONTINUE TO MONITOR ACCORDINGLY.
[2018-10-06] MEDS: MEROPENEM 500 MG in IV NS 0.9% 50 ML IV SCH (21:32)
[2018-10-06] MEDS: ATORVASTATIN 10 MG TABLET PO SCH (21:44)
[2018-10-06] MEDS: TERAZOSIN HCL 5 MG CAPSULE PO SCH (21:45)
[2018-10-06] MEDS: SENNOSIDES 8.6 MG TABLET PO SCH (21:45)
[2018-10-06] MEDS: *INSULIN REGULAR(HUMULIN R)HUM 100 UNIT/ML VIAL SQ PRN (22:32)
[2018-10-07] MEDS: GABAPENTIN 300 MG CAPSULE PO SCH ×3 (06:05→21:37)
[2018-10-07] MEDS: PROPRANOLOL HCL 10 MG TABLET PO SCH ×2 (06:30→17:13)
--- NOTE | 2018-10-07 07:24 | NUR ---
RN NOTES PATIENT AWAKE, ALERT ORIENTED X2, ON O2 AT 4LPM VIA NC SATING 97% -99%, SAFETY MEASURES IN PLACE, REPOSITIONED FOR COMFORT, ANURIC, NO ACUTE SIGNS OF RESPIRATORY / CARDIAC DISTRESS, DENIES PAIN AT THIS TIME, KEEP COMFORTABLE, ENDORSED TO AM NURSE FOR CONTINUITY OF CARE.
--- NOTE | 2018-10-07 07:29 | NUR ---
RECEIVE PATIENT IN STABLE CONDITION , ONGOING HD AT BEDSIDE.
[2018-10-07 07:47] LABS: BASOPHILS % (AUTO) 0.4 % (0.0-2.0); HEMATOCRIT 26 % (39-51); HEMOGLOBIN 8.5 g/dL (13.5-17.5); LYMPHOCYTES # (AUTO) 0.5 /CMM (0.8-4.8); LYMPHOCYTES % (AUTO) 5.3 % (20.0-44.0); MEAN CORPUSCULAR HGB CONC 33 g/dl (31.0-36.0); MEAN CORPUSCULAR VOLUME 97 fL (80-96); MONOCYTES # (AUTO) 0.5 /CMM (0.1-1.30); MONOCYTES % (AUTO) 5.8 % (2.0-12.0); NEUTROPHILS # (AUTO) 7.6 /CMM (1.8-8.9); NEUTROPHILS % (AUTO) 86.5 % (43.0-81.0); PLATELET COUNT (AUTO) 177 /CMM (150-450); RED BLOOD CELL COUNT(AUTO) 2.65 MIL/uL (4.5-6.0); WHITE BLOOD COUNT (AUTO) 8.8 K/uL (4.3-11.0)
[2018-10-07 07:56] LABS: CALCIUM, SERUM 8.4 mg/dL (8.5-10.1); CREATININE 3.3 mg/dL (0.6-1.3); MAGNESIUM 1.8 mg/dL (1.8-2.4); PHOSPHORUS 2.3 mg/dL (2.5-4.9); POTASSIUM 3.1 mmol/L (3.5-5.1)
[2018-10-07 08:00] VITALS: BP 119/42
[2018-10-07] MEDS: BLOOD SUGAR DIAGNOSTIC 1 EACH STRIP VI SCH ×4 (08:02→22:00)
--- NOTE | 2018-10-07 08:10 | NUR ---
hd output 1500ml. patient stable , BS 134
[2018-10-07] MEDS: ASCORBIC ACID 500 MG TABLET PO SCH (08:22)
[2018-10-07] MEDS: PANTOPRAZOLE 40 MG TABLET.DR PO SCH (08:22)
[2018-10-07] MEDS: FERROUS SULFATE (325 MG) 325 MG/TAB TABLET PO SCH ×2 (08:22→17:08)
[2018-10-07] MEDS: SEVELAMER CARBONATE 0.8 GM POWD.PACK PO SCH ×3 (08:22→17:08)
[2018-10-07] MEDS: FOLIC ACID 1 MG TABLET PO SCH (08:22)
[2018-10-07] MEDS: MEROPENEM 500 MG in IV NS 0.9% 50 ML IV SCH (08:22)
[2018-10-07] MEDS: HEPARIN SODIUM, PORCINE 5000 UNITS/1 ML VIAL SQ SCH ×2 (09:00→21:00)
[2018-10-07] MEDS: AMLODIPINE BESYLATE 10 MG TABLET PO SCH (09:00)
[2018-10-07] MEDS: hydrALAZINE HCL 50 MG TABLET PO SCH ×4 (09:00→21:35)
[2018-10-07 10:00] VITALS: BP 119/42
[2018-10-07] MEDS: CLOTRIMAZOLE 1% 15 GM TUBE TP SCH ×2 (12:00→18:07)
[2018-10-07] MEDS: IV NS 0.9% 1,000 ML IV PRN (12:10)
[2018-10-07] MEDS ORDERED: K PHOS NEUTRAL 250 MG TABLET PO ONE (13:00)
[2018-10-07] MEDS: ASPIRIN EC 81 MG TABLET.DR PO SCH (13:50)
[2018-10-07] MEDS: SERTRALINE HCL 50 MG TABLET PO SCH (13:53)
[2018-10-07 16:00] VITALS: BP 119/42
[2018-10-07] MEDS ORDERED: VANCOMYCIN 500 MG in IV D5W 100 ML IV PRN (18:00)
[2018-10-07] MEDS: INSULIN REGULAR, HUMAN 100 UNIT/ML 3 ML VIAL SQ PRN (18:05)
--- NOTE | 2018-10-07 18:54 | NUR ---
Patient resting in bed. A/O x 2. VS are stable with no acute distress noted. Breathing even and unlabored on 2.5LPM via NC tolerating well . RUC PermaCath clean, a new dressing applied after HD . LFA IV line clean, dry, intact and flushing well. Safety precautions in place. Bed locked and set to lowest position with side rails x 2 up. Patient on aspiration precautions, diet changed to well chapped. All needs attended , wound care done as ordered. Will endorse to next shift for EVELYN.
[2018-10-07 20:00] VITALS: BP 133/60
[2018-10-07] MEDS: TERAZOSIN HCL 5 MG CAPSULE PO SCH (21:37)
[2018-10-07] MEDS: ATORVASTATIN 10 MG TABLET PO SCH (21:37)
[2018-10-07] MEDS: SENNOSIDES 8.6 MG TABLET PO SCH (21:37)
[2018-10-07] MEDS: *INSULIN REGULAR(HUMULIN R)HUM 100 UNIT/ML VIAL SQ PRN (23:28)
[2018-10-08] MEDS: PROPRANOLOL HCL 10 MG TABLET PO SCH ×2 (07:20→17:14)
[2018-10-08] MEDS: GABAPENTIN 300 MG CAPSULE PO SCH ×3 (07:20→21:08)
[2018-10-08] MEDS: BLOOD SUGAR DIAGNOSTIC 1 EACH STRIP VI SCH ×4 (07:33→22:12)
[2018-10-08 07:37] LABS: BASOPHILS % (AUTO) 0.3 % (0.0-2.0); EOSINOPHILS % (AUTO) 3.4 % (0.0-6.0); HEMATOCRIT 26 % (39-51); HEMOGLOBIN 8.5 g/dL (13.5-17.5); LYMPHOCYTES # (AUTO) 0.7 /CMM (0.8-4.8); LYMPHOCYTES % (AUTO) 8.4 % (20.0-44.0); MEAN CORPUSCULAR HGB CONC 33 g/dl (31.0-36.0); MEAN CORPUSCULAR VOLUME 96 fL (80-96); MONOCYTES # (AUTO) 0.6 /CMM (0.1-1.30); MONOCYTES % (AUTO) 7.1 % (2.0-12.0); NEUTROPHILS # (AUTO) 6.5 /CMM (1.8-8.9); NEUTROPHILS % (AUTO) 80.8 % (43.0-81.0); PLATELET COUNT (AUTO) 196 /CMM (150-450); RED BLOOD CELL COUNT(AUTO) 2.68 MIL/uL (4.5-6.0); WHITE BLOOD COUNT (AUTO) 8.1 K/uL (4.3-11.0)
[2018-10-08 07:51] LABS: CALCIUM, SERUM 8.2 mg/dL (8.5-10.1); CREATININE 3.7 mg/dL (0.6-1.3); MAGNESIUM 1.7 mg/dL (1.8-2.4); PHOSPHORUS 2.6 mg/dL (2.5-4.9); POTASSIUM 3.6 mmol/L (3.5-5.1)
[2018-10-08 08:00] VITALS: BP 128/53
[2018-10-08] MEDS: SEVELAMER CARBONATE 0.8 GM POWD.PACK PO SCH ×3 (08:03→17:07)
[2018-10-08] MEDS: PANTOPRAZOLE 40 MG TABLET.DR PO SCH (08:03)
[2018-10-08] MEDS: FOLIC ACID 1 MG TABLET PO SCH (08:04)
[2018-10-08] MEDS: FERROUS SULFATE (325 MG) 325 MG/TAB TABLET PO SCH ×2 (08:04→17:07)
[2018-10-08] MEDS: ASCORBIC ACID 500 MG TABLET PO SCH (08:04)
[2018-10-08] MEDS: AMLODIPINE BESYLATE 10 MG TABLET PO SCH (08:10)
[2018-10-08] MEDS: CLOTRIMAZOLE 1% 15 GM TUBE TP SCH ×2 (08:12→17:23)
[2018-10-08] MEDS: hydrALAZINE HCL 50 MG TABLET PO SCH ×4 (08:56→21:09)
[2018-10-08] MEDS: HEPARIN SODIUM, PORCINE 5000 UNITS/1 ML VIAL SQ SCH ×2 (08:57→21:00)
--- NOTE | 2018-10-08 11:05 | NUR ---
WOUND CARE CONSULT: PT FOLLOWED BY PLASTIC SURGERY TEAM FOR WOUND CARE. DEFER TO SURGICAL TEAM FOR WOUND TREATMENT PLAN. FIRST STEP LOW AIRLOSS MATTRESS ORDERED. CURRENT SARAH SCORE IS 12. DISCUSSED SKIN PROTECTION WITH NURSING STAFF. WILL SEE PRN.
[2018-10-08] MEDS: SERTRALINE HCL 50 MG TABLET PO SCH (12:48)
[2018-10-08] MEDS: ASPIRIN EC 81 MG TABLET.DR PO SCH (12:49)
[2018-10-08] MEDS: *INSULIN REGULAR(HUMULIN R)HUM 100 UNIT/ML VIAL SQ PRN ×3 (13:04→22:16)
[2018-10-08] MEDS: HYDROGEL DRESSING 90 GM TUBE TP SCH ×2 (14:00→21:11)
[2018-10-08 16:00] VITALS: BP 118/58
--- NOTE | 2018-10-08 18:58 | NUR ---
closing note PT IN BED RESTING. VSS. ALL PT NEEDS ANTICIPATED AND MET. SAFETY MEASURES IN PLACE, CALL LIGHT IN REACH. WILL ENDORSE TO POWER MANAGER FOR EVELYN.
[2018-10-08 20:00] VITALS: BP 133/54
--- NOTE | 2018-10-08 20:00 | NUR ---
MS MANAGER FAMILY INITIAL NOTES SEEN PT IN BED AWAKE AND ALERT WATCHING TV AT THIS TIME WITH IVF OF NS AT 75ML.HR INFUSING ON HIS LEFT FOREARM . BREATHING EVEN AND NON-LABORED NOT IN ANY DISTRESS NOTED AND NO SOB NOTED WELL. ON SEMI FOWLERS POSITION WITH SIDE RAILS X3 UP FOR PT SAFETY. HE'S ON [employer] MATTRESS FOR HIS COMFORT AND WOUND PROBLEM WELL. KEPT HIM WARM AND COMFORTABLE AT ALL TIMES. PLACE CALL LIGHT AT REACH. ISOLATION PRECAUTION IMPLEMENTED AND OBSERVED. WILL CONTINUE MONITORING.
[2018-10-08] MEDS: MUPIROCIN OINT 2% 22 GM TUBE SCH (21:11)
[2018-10-08] MEDS: ATORVASTATIN 10 MG TABLET PO SCH (21:28)
[2018-10-08] MEDS: TERAZOSIN HCL 5 MG CAPSULE PO SCH (21:28)
[2018-10-08] MEDS: SENNOSIDES 8.6 MG TABLET PO SCH (21:28)
--- NOTE | 2018-10-08 21:43 | NUR ---
ms criminal profiler notes routine med given as ordered and pt tolerated well no aspiration noted. will continue monitoring.
--- NOTE | 2018-10-08 22:15 | NUR ---
MS BERTA NOTES' BLOOD SUGAR CHECKED DONE 185, 3 UNITS OF INSULIN GIVEN ASHLEY SQ ORDERED. SNACKS ALSO SERVED. SPONGES BATH ALSO RENDERED WELL WOUND CARE TX. DRESSINGS OF HIS PERMA CATH CHANGED WITH THE HELPED OF ANOTHER NURSE LAINA . KEPT HIM WARM AND COMFORTABLE AT ALL TIMES. WILL CONTINUE MONITORING.
--- NOTE | 2018-10-09 01:34 | NUR ---
ms imelda notes pt asleep at this time, no signs of any distress noted. will continue monitoring.
[2018-10-09] MEDS: GABAPENTIN 300 MG CAPSULE PO SCH ×3 (06:16→21:00)
[2018-10-09] MEDS: PANTOPRAZOLE 40 MG TABLET.DR PO SCH (06:17)
[2018-10-09] MEDS: BLOOD SUGAR DIAGNOSTIC 1 EACH STRIP VI SCH ×4 (06:17→21:35)
--- NOTE | 2018-10-09 06:20 | NUR ---
ms veneer measurer notes pt resting comfortably in bed without any acute distress noted, routine meds given and blood sugar checked done. 144, 2 units of insulin given as ordered. no signs of hypo glycemia noted. kept him warm and comfortable at all times. place call light at reach.
[2018-10-09] MEDS: PROPRANOLOL HCL 10 MG TABLET PO SCH ×2 (06:21→18:17)
[2018-10-09] MEDS: INSULIN REGULAR, HUMAN 100 UNIT/ML 3 ML VIAL SQ PRN ×3 (06:26→17:07)
--- NOTE | 2018-10-09 07:22 | NUR ---
MS INFECTIOUS DISEASES PHYSICIAN CLOSING NOTES PT BACK TO REST AFTER MORNING CARE DONE, STABLE ASHLEY THE NIGHT AND SLEPT WELL, NO SIGNS OF ANY DISTRESS NOTED. KEPT HIM WARM AND COMFORTABLE AT ALL TIMES. ON SEMI FOWLERS POSITION WITH SIDE RAILS UP AND BED IN LOW AND LOCK POSITION. PLACE CALL LIGHT AT REACH. ENDORSE TO AM NURSE FOR CONTINUITY OF CARE.
--- NOTE | 2018-10-09 07:33 | NUR ---
MS RN OPENING NOTES PATIENT AWAKE AND IN BED RESTING, BREATHING ON OXYGEN NC AT 2L. PATIENT HEAD OF THE BED IS SEMI FOWLERS. PATIENT BREATHING IS EVEN AND UNLABORED. PATIENT IN NO ACUTE DISTRESS. NO SOB NOTED. PATIENT BED ALARM IS ON. PATIENT MAINTAINED ON ISOLATION PRECAUTIONS. PATIENT BED IS LOCKED AND IN LOWEST POSITION. CALL LIGHT WITHIN REACH. WILL CONTINUE TO MONITOR.
[2018-10-09 07:35] LABS: BASOPHILS % (AUTO) 0.4 % (0.0-2.0); EOSINOPHILS % (AUTO) 4.6 % (0.0-6.0); HEMATOCRIT 28 % (39-51); HEMOGLOBIN 9.1 g/dL (13.5-17.5); LYMPHOCYTES # (AUTO) 0.8 /CMM (0.8-4.8); LYMPHOCYTES % (AUTO) 10.2 % (20.0-44.0); MEAN CORPUSCULAR HGB CONC 33 g/dl (31.0-36.0); MEAN CORPUSCULAR VOLUME 96 fL (80-96); MONOCYTES # (AUTO) 0.6 /CMM (0.1-1.30); MONOCYTES % (AUTO) 7.9 % (2.0-12.0); NEUTROPHILS # (AUTO) 5.8 /CMM (1.8-8.9); NEUTROPHILS % (AUTO) 76.9 % (43.0-81.0); PLATELET COUNT (AUTO) 188 /CMM (150-450); RED BLOOD CELL COUNT(AUTO) 2.88 MIL/uL (4.5-6.0); WHITE BLOOD COUNT (AUTO) 7.5 K/uL (4.3-11.0)
[2018-10-09 07:39] LABS: CALCIUM, SERUM 7.9 mg/dL (8.5-10.1); CREATININE 4.5 mg/dL (0.6-1.3); MAGNESIUM 1.9 mg/dL (1.8-2.4); PHOSPHORUS 3.2 mg/dL (2.5-4.9)
[2018-10-09 08:00] VITALS: BP 161/67
[2018-10-09] MEDS: SEVELAMER CARBONATE 0.8 GM POWD.PACK PO SCH ×3 (08:26→17:12)
[2018-10-09] MEDS: FERROUS SULFATE (325 MG) 325 MG/TAB TABLET PO SCH ×2 (08:26→17:12)
[2018-10-09] MEDS: FOLIC ACID 1 MG TABLET PO SCH (08:27)
[2018-10-09] MEDS: AMLODIPINE BESYLATE 10 MG TABLET PO SCH (08:27)
[2018-10-09] MEDS: ASCORBIC ACID 500 MG TABLET PO SCH (08:27)
[2018-10-09] MEDS: hydrALAZINE HCL 50 MG TABLET PO SCH ×4 (08:28→20:56)
[2018-10-09] MEDS: MUPIROCIN OINT 2% 22 GM TUBE SCH ×2 (08:29→20:55)
[2018-10-09] MEDS: HYDROGEL DRESSING 90 GM TUBE TP SCH ×2 (08:29→20:56)
[2018-10-09] MEDS: CLOTRIMAZOLE 1% 15 GM TUBE TP SCH ×2 (08:30→17:13)
[2018-10-09] MEDS: Z GUARD REMEDY 2 OZ OINT TP SCH (08:30)
--- NOTE | 2018-10-09 09:35 | NUR ---
MS RN NOTES NOTIFIED AND SPOKE WITH DR. ROB OF PATIENT LABS FOR HEPARIN MEDICATION. PER MD, TO CONTINUE WITH ADMINISTRATION OF HEPARIN. PATIENT IN NO ACUTE DISTRESS. WILL CONTINUE TO MONITOR.
[2018-10-09] MEDS: HEPARIN SODIUM, PORCINE 5000 UNITS/1 ML VIAL SQ SCH ×2 (09:53→21:42)
[2018-10-09] MEDS: SERTRALINE HCL 50 MG TABLET PO SCH (13:11)
[2018-10-09] MEDS: ASPIRIN EC 81 MG TABLET.DR PO SCH (13:12)
[2018-10-09 16:00] VITALS: BP 139/59
--- NOTE | 2018-10-09 18:43 | NUR ---
MS RN CLOSING NOTES PATIENT IS IN BED AWAKE, ALERT, AND ORIENTED X3. PATIENT IS BREATHING ON OXYGEN 2L NC. PATIENT BREATHING IS EVEN AND UNLABORED. PATIENT IN NO ACUTE DISTRESS. PATIENT KEPT CLEAN, DRY, AND COMFORTABLE. ALL NURSING NEEDS MET. SAFETY PRECAUTIONS IN PLACE. PATIENT MAINTAINED ON ISOLATION PRECAUTIONS. PATIENT BED LOCKED AND IN LOWEST POSITION. CALL LIGHT WITHIN REACH. WILL ENDORSE CARE TO PM SHIFT FOR EVELYN.
--- NOTE | 2018-10-09 19:41 | NUR ---
RN MS OPENING NOTES RECEIVED PATIENT IN BED AWAKE, ALERT AND ORIENTED X2, VERBALLY RESPONSIVE, ABLE TO MAKE NEEDS KNOWN. BREATHING EVEN AND UNLABORED. NO SOB NOTED. ON 2LPM VIA NC. NO COMPLAINTS OF PAIN OR DISCOMFORT. NO FACIAL GRIMACING. LEFT FOREARM IV INTACT AND PATENT. PATIENT NOTED WITH A RIGHT CHEST WALL HD CATH. DRESSINGS DRY AND INTACT. SKIN DRY AND WARM TO TOUCH. AFEBRILE. ALL OTHER NEEDS MET. SAFETY MEASURES IN PLACE. CALL LIGHT WITHIN REACH. WILL CONTINUE TO MONITOR.
[2018-10-09 20:31] VITALS: BP 137/60
[2018-10-09] MEDS: TERAZOSIN HCL 5 MG CAPSULE PO SCH (21:00)
[2018-10-09] MEDS: SENNOSIDES 8.6 MG TABLET PO SCH (21:00)
[2018-10-09] MEDS: ATORVASTATIN 10 MG TABLET PO SCH (21:00)
[2018-10-09] MEDS: *INSULIN REGULAR(HUMULIN R)HUM 100 UNIT/ML VIAL SQ PRN (21:40)
[2018-10-10] MEDS: GABAPENTIN 300 MG CAPSULE PO SCH ×3 (06:10→22:00)
[2018-10-10] MEDS: PROPRANOLOL HCL 10 MG TABLET PO SCH ×2 (06:10→17:19)
[2018-10-10 06:34] LABS: CALCIUM, SERUM 8.2 mg/dL (8.5-10.1); CREATININE 5.5 mg/dL (0.6-1.3); POTASSIUM 4.4 mmol/L (3.5-5.1)
[2018-10-10] MEDS: BLOOD SUGAR DIAGNOSTIC 1 EACH STRIP VI SCH ×4 (06:34→22:00)
[2018-10-10] MEDS: INSULIN REGULAR, HUMAN 100 UNIT/ML 3 ML VIAL SQ PRN ×4 (06:34→22:16)
[2018-10-10 06:35] LABS: BASOPHILS # (AUTO) 0.1 /CMM (0.0-0.2); BASOPHILS % (AUTO) 0.7 % (0.0-2.0); EOSINOPHILS % (AUTO) 3.1 % (0.0-6.0); HEMATOCRIT 28 % (39-51); HEMOGLOBIN 9.3 g/dL (13.5-17.5); LYMPHOCYTES # (AUTO) 0.9 /CMM (0.8-4.8); LYMPHOCYTES % (AUTO) 10.2 % (20.0-44.0); MEAN CORPUSCULAR HGB CONC 34 g/dl (31.0-36.0); MEAN CORPUSCULAR VOLUME 95 fL (80-96); MONOCYTES # (AUTO) 0.6 /CMM (0.1-1.30); MONOCYTES % (AUTO) 7.3 % (2.0-12.0); NEUTROPHILS % (AUTO) 78.7 % (43.0-81.0); PLATELET COUNT (AUTO) 197 /CMM (150-450); WHITE BLOOD COUNT (AUTO) 8.8 K/uL (4.3-11.0)
--- NOTE | 2018-10-10 06:51 | NUR ---
RN MS CLOSING NOTES PATIENT RESTING IN BED. NO ACUTE CHANGES THROUGHOUT SHIFT. ALL DUE MEDS GIVEN WITH NO ISSUES. BREATHING EVEN AND UNLABORED. NO SOB NOTED. ON 2LPM VIA NC. NO COMPLAINTS OF PAIN OR DISCOMFORT. NO FACIAL GRIMACING. LEFT FOREARM IV INTACT AND PATENT. DRESSINGS DRY, CLEAN, AND INTACT. KEPT CLEAN DRY AND COMFORTABLE. REPOSITIONED Q2H. ALL OTHER NEEDS MET. SAFETY MEASURES IN PLACE. CALL LIGHT WITHIN REACH. WILL ENDORSE TO ONCOMING NURSE FOR EVELYN.
--- NOTE | 2018-10-10 07:40 | NUR ---
MS RN OPENING NOTES PATIENT IS IN BED AWAKE, RESTING COMFORTABLY. PATIENT IS AWAKE, ALERT AND ORIENTED X3. PATIENT STATES NO PAIN OR DISCOMFORT AT THIS TIME. PATIENT BREATHING ON OXYGEN 2L NC. PATIENT BREATHING IS EVEN AND UNLABORED. PATIENT IN NO ACUTE DISTRESS. NO SOB NOTED. PATIENT DRESSINGS DRY AND INTACT. CONTACT ISOLATION PRECAUTIONS MAINTAINED. PATIENT BED IS LOCKED AND IN LOWEST POSITION. PATIENT CALL LIGHT WITHIN REACH. WILL TO CONTINUE TO MONITOR.
[2018-10-10 08:00] VITALS: BP 136/56
[2018-10-10] MEDS: HEPARIN SODIUM, PORCINE 5000 UNITS/1 ML VIAL SQ SCH ×2 (08:41→21:18)
[2018-10-10] MEDS: PANTOPRAZOLE 40 MG TABLET.DR PO SCH (08:42)
[2018-10-10] MEDS: SEVELAMER CARBONATE 0.8 GM POWD.PACK PO SCH ×3 (08:43→17:19)
[2018-10-10] MEDS: MUPIROCIN OINT 2% 22 GM TUBE SCH ×2 (08:44→21:16)
[2018-10-10] MEDS: CLOTRIMAZOLE 1% 15 GM TUBE TP SCH ×2 (08:44→17:20)
[2018-10-10] MEDS: HYDROGEL DRESSING 90 GM TUBE TP SCH ×2 (08:44→21:16)
[2018-10-10] MEDS: Z GUARD REMEDY 2 OZ OINT TP SCH (08:45)
[2018-10-10] MEDS: FOLIC ACID 1 MG TABLET PO SCH (08:46)
[2018-10-10] MEDS: ASCORBIC ACID 500 MG TABLET PO SCH (08:46)
[2018-10-10] MEDS: hydrALAZINE HCL 50 MG TABLET PO SCH ×4 (08:46→21:15)
[2018-10-10] MEDS: FERROUS SULFATE (325 MG) 325 MG/TAB TABLET PO SCH ×2 (08:46→17:19)
[2018-10-10] MEDS: AMLODIPINE BESYLATE 10 MG TABLET PO SCH (09:00)
[2018-10-10] MEDS: ASPIRIN EC 81 MG TABLET.DR PO SCH (13:08)
[2018-10-10] MEDS: SERTRALINE HCL 50 MG TABLET PO SCH (13:08)
[2018-10-10 16:00] VITALS: BP 127/57
[2018-10-10] MEDS ORDERED: LIDOCAINE 2%-EPI 1:100,000 30 ML VIAL TP STA (16:03)
[2018-10-10] MEDS ORDERED: LIDOCAINE 2%-EPI 1:200,000 20 ML VIAL IJ STA (16:15)
--- NOTE | 2018-10-10 16:54 | NUR ---
MS RN NOTES PATIENT HAD RIGHT CHEST PERMA CATH REMOVAL, ASSISTED OLIVIER RHODES. CONSENT SIGNED AND IN CHART. PATIENT TOLERATED PROCEDURE WELL. PATIENT IN NO ACUTE DISTRESS. NO SOB. DRESSING KEPT CLEAN AND DRY. WILL CONTINUE TO MONITOR.
--- NOTE | 2018-10-10 19:24 | NUR ---
MS RN NOTES PATIENT RESTING IN BED COMFORTABLY. PATIENT IN NO ACUTE DISTRESS. PATIENT BREATHING ON OXYGEN 2L. PATIENT BREATHING IS EVEN AND UNLABORED. NO SOB NOTED. PATIENT KEPT CLEAN, DRY, REPOSITIONED, AND COMFORTABLE. PATIENT IS IN NO PAIN AT THIS TIME. PATIENT DRESSINGS KEPT CLEAN AND DRY. ALL NURSING NEEDS MET. SAFETY PRECAUTIONS IN PLACE. PATIENT MAINTAINED ON ISOLATION PRECAUTIONS. IV INTACT. PATIENT BED IS LOCKED AND IN LOWEST POSITION. CALL LIGHT WITHIN REACH. ENDORSED CARE TO PM SHIFT FOR EVELYN.
--- NOTE | 2018-10-10 19:41 | NUR ---
MS BERTA INITIAL NOTES RECEIVED REPORT FROM AM NURSE DONNA AND SEEN PT IN BED AWAKE AND ALERT WATCHING TV AT THIS TIME. DENIES ANY PAIN OR ANY DISCOMFORT. BREATHING EVEN AND NON-LABORED NOT IN ANY DISTRESS. DRESSING ON HIS S/P PHERMA CATH REMOVED STILL DRY AND INTACT.AWARE WHERE HE AT AND HOW TO USED THE CALL LIGHT SYSTEM. KEPT HIM WARM AND COMFORTABLE AT ALL TIMES. PLACE CALL LIGHT AT REACH. WILL CONTINUE MONITORING. CONTACT ISOLATION PRECAUTION IMPLEMENTED AND OBSERVED.
[2018-10-10 20:00] VITALS: BP 145/58
[2018-10-10] MEDS: ATORVASTATIN 10 MG TABLET PO SCH (22:00)
[2018-10-10] MEDS: SENNOSIDES 8.6 MG TABLET PO SCH (22:00)
[2018-10-10] MEDS: TERAZOSIN HCL 5 MG CAPSULE PO SCH (22:00)
--- NOTE | 2018-10-10 22:20 | NUR ---
MS BERTA NOTES BLOOD SUGAR CHECKED DONE 150, 2 UNITS OF INSULIN ASHLEY SQ ORDERED. NO SIGNS OF HYPO/HYPER GLYCEMIA NOTED. SNACKS ALSO SERVED. WILL CONTINUE MONITORING. PLACE CALL LIGHT AT REACH.
--- NOTE | 2018-10-11 | NUR ---
MS PATTERNMAKER PLASTER NOTES PT ASLEEP NO SIGNS OF ANY DISTRESS NOTED.
--- NOTE | 2018-10-11 03:00 | NUR ---
MS BERTA NOTES PT WOKE UP AND DID OUR SPONGES BATH WITH WOUND CARE TX AGAIN. REPOSITION HER FOR COMFORT. PLACE CALL LIGHT AT REACH,. WILL CONTINUE MONITORING.
[2018-10-11] MEDS: BLOOD SUGAR DIAGNOSTIC 1 EACH STRIP VI SCH ×4 (06:33→21:20)
[2018-10-11] MEDS: GABAPENTIN 300 MG CAPSULE PO SCH ×3 (06:33→21:19)
[2018-10-11] MEDS: PANTOPRAZOLE 40 MG TABLET.DR PO SCH (06:33)
[2018-10-11] MEDS: PROPRANOLOL HCL 10 MG TABLET PO SCH ×2 (06:34→17:30)
--- NOTE | 2018-10-11 07:14 | NUR ---
MS EQUIPMENT CLEANER CLOSING NOTES PT BACK TO SLEEP , BLOOD SUGAR CHECKED DONE 118 NO INSULIN DUE AT THIS TIME. NO SIGNS OF HYPO GLYCEMIA NOTED. ALL DUE MEDS GIVEN AND ALL NEEDS MET. DRESSINGS ON HIS RIGHT UPPER CHEST DRY AND INTACT,. STABLE ASHLEY THE NIGHT AND SLEPT WELL. KEPT HIM WARM AND COMFORTABLE AT ALL TIMES. ON SEMI FOWLERS POSITION WITH SIDE RIALS X3 UP AND BED ALARM SET. ISOLATION PRECAUTION IMPLEMENTED AND OBSERVED. ENDORSE TO AM NURSE CHAVO FOR CONTINUITY OF CARE. PLACE CALL LIGHT AT REACH.
--- NOTE | 2018-10-11 07:25 | NUR ---
MS RN OPENING NOTES PATIENT IS IN BED ASLEEP, RESTING COMFORTABLY. PATIENT BREATHING ON OXYGEN 2L NC. PATIENT BREATHING IS EVEN AND UNLABORED. PATIENT IN NO ACUTE DISTRESS. NO SOB NOTED. PATIENT DRESSINGS DRY AND INTACT. CONTACT ISOLATION PRECAUTIONS MAINTAINED. PATIENT BED IS LOCKED AND IN LOWEST POSITION. PATIENT CALL LIGHT WITHIN REACH. WILL TO CONTINUE TO MONITOR.
[2018-10-11 07:38] LABS: CALCIUM, SERUM 8.3 mg/dL (8.5-10.1); CREATININE 6.5 mg/dL (0.6-1.3)
[2018-10-11 08:00] VITALS: BP 139/65
[2018-10-11] MEDS: ASCORBIC ACID 500 MG TABLET PO SCH (08:33)
[2018-10-11] MEDS: SEVELAMER CARBONATE 0.8 GM POWD.PACK PO SCH ×3 (08:33→17:30)
[2018-10-11] MEDS: FERROUS SULFATE (325 MG) 325 MG/TAB TABLET PO SCH ×2 (08:33→17:24)
[2018-10-11] MEDS: FOLIC ACID 1 MG TABLET PO SCH (08:34)
[2018-10-11] MEDS: MUPIROCIN OINT 2% 22 GM TUBE SCH ×2 (08:38→21:20)
[2018-10-11] MEDS: HYDROGEL DRESSING 90 GM TUBE TP SCH ×2 (08:39→21:20)
[2018-10-11] MEDS: CLOTRIMAZOLE 1% 15 GM TUBE TP SCH ×2 (08:39→17:41)
[2018-10-11] MEDS: Z GUARD REMEDY 2 OZ OINT TP SCH (08:40)
[2018-10-11] MEDS: HEPARIN SODIUM, PORCINE 5000 UNITS/1 ML VIAL SQ SCH ×2 (08:47→21:20)
[2018-10-11] MEDS: AMLODIPINE BESYLATE 10 MG TABLET PO SCH (08:51)
[2018-10-11] MEDS: hydrALAZINE HCL 50 MG TABLET PO SCH ×4 (08:51→21:19)
[2018-10-11] MEDS: INSULIN REGULAR, HUMAN 100 UNIT/ML 3 ML VIAL SQ PRN ×2 (12:12→17:40)
[2018-10-11] MEDS: NEOMY SULF/BACITRAC ZN/POLY 15 GM TUBE TP SCH ×2 (13:06→21:20)
[2018-10-11] MEDS: SERTRALINE HCL 50 MG TABLET PO SCH (13:16)
[2018-10-11] MEDS: ASPIRIN EC 81 MG TABLET.DR PO SCH (13:16)
[2018-10-11 16:00] VITALS: BP 142/58
[2018-10-11] MEDS ORDERED: NEPRO VAN 237 ML CAN PO PRN (16:00)
[2018-10-11] MEDS: PROSOURCE / PROSTAT (PYXIS) 30 ML UDC GT SCH (17:24)
--- NOTE | 2018-10-11 18:58 | NUR ---
MS RN CLOSING NOTES PATIENT IN BED LYING AT SEMI-CHICAS'S POSITION AT THIS TIME. A/O X2-3. VERBALLY RESPONSIVE. ON 2LPM OF OXYGEN VIA NC, TOLERATING WELL WITH NO SOB NOTED. STABLE AT THIS TIME. ALL DUE MEDS GIVEN AND ALL NEEDS MET. DRESSINGS ON HIS RIGHT UPPER CHEST CLEAN, DRY AND INTACT. SACRAL WOUND TREATMENT DONE ORDERED. SIDE RAILS X3 UP AND BED ALARM ON. CONTACT PRECAUTIONS MAINTAINED. CALL LIGHT WITHIN REACH. WILL ENDORSE TO CUT PRESSMAN NURSE FOR EVELYN.
--- NOTE | 2018-10-11 19:40 | NUR ---
MS RN NOTE: PATIENT RESTING IN BED, NO ACUTE DISTRESS NOTED. BREATHING EVEN AND UNLABORED, NO SOB NOTED. NO S/S OF HYPER/HYPOGLYCEMIA NOTED. ISOLATION PRECAUTIONS OBSERVED. BED LOCKED AND IN LOWEST POSITION, CALL LIGHT IN REACH. WILL CONTINUE TO MONITOR.
[2018-10-11 20:00] VITALS: BP 147/72
[2018-10-11] MEDS: ATORVASTATIN 10 MG TABLET PO SCH (21:18)
[2018-10-11] MEDS: TERAZOSIN HCL 5 MG CAPSULE PO SCH (21:18)
[2018-10-11] MEDS: SENNOSIDES 8.6 MG TABLET PO SCH (21:18)
--- NOTE | 2018-10-11 22:45 | NUR ---
MS RN NOTE: PATIENT BLOOD SUGAR LEVEL 134MG/DL, 2 UNITS OF INSULIN TO BE GIVEN PER SLIDING SCALE. NO S/S OF HYPER/HYPOGLYCEMIA NOTED. WILL CONTINUE TO MONITOR.
[2018-10-11] MEDS: *INSULIN REGULAR(HUMULIN R)HUM 100 UNIT/ML VIAL SQ PRN (22:57)
[2018-10-12] MEDS: PROPRANOLOL HCL 10 MG TABLET PO SCH ×2 (06:18→17:29)
[2018-10-12] MEDS: GABAPENTIN 300 MG CAPSULE PO SCH ×3 (06:18→21:38)
--- NOTE | 2018-10-12 06:45 | NUR ---
MS RN NOTE: PATIENT RESTING IN BED, NO ACUTE DISTRESS NOTED. BREATHING EVEN AND UNLABORED, NO SOB NOTED. BLOOD SUGAR LEVEL 127MG/DL, NO INSULIN NEEDED PER SLIDING SCALE. NO S/S OF HYPER/HYPOGLYCEMIA NOTED. ISOLATION PRECAUTIONS OBSERVED. BED LOCKED AND IN LOWEST POSITION, CALL LIGHT IN REACH. WILL ENDORSE TO DAY NURSE TO CONTINUE WITH PLAN OF CARE.
[2018-10-12] MEDS: BLOOD SUGAR DIAGNOSTIC 1 EACH STRIP VI SCH ×4 (06:47→21:45)
[2018-10-12 06:49] LABS: CALCIUM, SERUM 8.1 mg/dL (8.5-10.1); CREATININE 7.3 mg/dL (0.6-1.3); POTASSIUM 5.3 mmol/L (3.5-5.1)
--- NOTE | 2018-10-12 07:31 | NUR ---
MS RN OPENING NOTES RECEIVED PT SLEEPING IN BED, EASILY AROUSED. 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 ON SUPPLEMENTARY OXYGEN AT 2L VIA NC, WITH NO ACUTE RESPIRATORY DISTRESS NOTED. PT DENIES ANY PAIN OR DISCOMFORT. ALSO, DENIES ANY CONCERNS AND QUESTIONS. PIV TO LFA, FLUSHED WITH NS, INTACT AND OPERATIONAL. PT KEPT COMFORTABLE. PT'S BED IN LOWEST, LOCKED POSITION WITH SR X2. CALL LIGHT WITHIN REACH. WILL CONTINUE PLAN OF CARE.
[2018-10-12 08:00] VITALS: BP 138/49
[2018-10-12] MEDS: PANTOPRAZOLE 40 MG TABLET.DR PO SCH (08:24)
[2018-10-12] MEDS: SEVELAMER CARBONATE 0.8 GM POWD.PACK PO SCH ×3 (08:25→17:43)
[2018-10-12] MEDS: HEPARIN SODIUM, PORCINE 5000 UNITS/1 ML VIAL SQ SCH (08:30)
[2018-10-12] MEDS: FERROUS SULFATE (325 MG) 325 MG/TAB TABLET PO SCH ×2 (08:31→17:29)
[2018-10-12] MEDS: ASCORBIC ACID 500 MG TABLET PO SCH (08:31)
[2018-10-12] MEDS: FOLIC ACID 1 MG TABLET PO SCH (08:31)
[2018-10-12] MEDS: AMLODIPINE BESYLATE 10 MG TABLET PO SCH (08:31)
[2018-10-12] MEDS: PROSOURCE / PROSTAT (PYXIS) 30 ML UDC GT SCH ×3 (08:34→17:28)
[2018-10-12] MEDS: hydrALAZINE HCL 50 MG TABLET PO SCH ×4 (08:34→20:53)
[2018-10-12] MEDS: CLOTRIMAZOLE 1% 15 GM TUBE TP SCH ×2 (09:21→17:33)
[2018-10-12] MEDS: Z GUARD REMEDY 2 OZ OINT TP SCH (09:21)
[2018-10-12] MEDS: HYDROGEL DRESSING 90 GM TUBE TP SCH ×2 (09:21→20:55)
[2018-10-12] MEDS: MUPIROCIN OINT 2% 22 GM TUBE SCH ×2 (09:21→20:58)
[2018-10-12] MEDS: NEOMY SULF/BACITRAC ZN/POLY 15 GM TUBE TP SCH ×2 (09:43→20:58)
[2018-10-12] MEDS: INSULIN REGULAR, HUMAN 100 UNIT/ML 3 ML VIAL SQ PRN ×2 (11:55→17:42)
[2018-10-12] MEDS: SERTRALINE HCL 50 MG TABLET PO SCH (13:34)
[2018-10-12] MEDS: ASPIRIN EC 81 MG TABLET.DR PO SCH (13:34)
[2018-10-12 16:00] VITALS: BP 136/61
--- NOTE | 2018-10-12 18:25 | NUR ---
MS RN CLOSING NOTES PT REMAINS RESTING IN BED,INTERMITTENTLY DOZING OFF. 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 ON SUPPLEMENTARY OXYGEN AT 2L VIA NC, WITH NO ACUTE RESPIRATORY DISTRESS NOTED. PT DENIES ANY PAIN OR DISCOMFORT. PIV TO LFA, FLUSHED WITH NS, INTACT AND OPERATIONAL. ALL NEEDS AND CARE ATTENDED. REPOSITION [id number]. PT KEPT COMFORTABLE. PT'S BED IN LOWEST, LOCKED POSITION WITH SR X2. CALL LIGHT WITHIN REACH. WILL ENDORSE TO INCOMING NIGHT NURSE FOR EVELYN.
--- NOTE | 2018-10-12 19:00 | NUR ---
RN gloriasurbethanie opening notes Received Pt from morning nurse. Pt is alert and oriented X3. Pt is resting in bed comfortably. Respiration is normal. Pt is on 2 L NC. NO SOB. Pt denies any pain or discomfort at this time. IV sites on LFA #16 is intact, patent and flush without resistance. Instructed to call. Contact precautions is maintained for VRE and MRSA to sacral wound and MRSA for blood. Safety precautions is maintained. Bed at low position and call light is within reach. Will continue to monitor and assist all needs.
[2018-10-12 20:00] VITALS: BP 129/53
[2018-10-12] MEDS: TERAZOSIN HCL 5 MG CAPSULE PO SCH (21:39)
[2018-10-12] MEDS: SENNOSIDES 8.6 MG TABLET PO SCH (21:40)
[2018-10-12] MEDS: ATORVASTATIN 10 MG TABLET PO SCH (21:40)
[2018-10-12] MEDS: *INSULIN REGULAR(HUMULIN R)HUM 100 UNIT/ML VIAL SQ PRN (21:52)
[2018-10-13 05:23] VITALS: BP 131/58
[2018-10-13] MEDS: GABAPENTIN 300 MG CAPSULE PO SCH ×3 (05:30→21:13)
[2018-10-13] MEDS: PROPRANOLOL HCL 10 MG TABLET PO SCH ×2 (05:30→17:18)
--- NOTE | 2018-10-13 06:30 | NUR ---
RN medsurg closing notes Pt is resting in bed comfortably. Awaken easily. Respiration is normal. No SOB. Pt is on 2 L NC. Pt denies any pain or discomfort at this time. IV sites at LFA is patent, intact and flush without resistance. Routine meds are given and all needs met. Skin care provided. Permacath insertion consent signed by the patient. Contact precautions for VRE/MRSA sacral wound and MRSA blood is maintained. Safety precautions is maintained. Instructed to call. Bed at low position and call light is within reach. Will endorse to morning nurse for EVELYN.
[2018-10-13] MEDS: BLOOD SUGAR DIAGNOSTIC 1 EACH STRIP VI SCH ×4 (06:41→21:26)
[2018-10-13 07:04] LABS: BASOPHILS % (AUTO) 0.4 % (0.0-2.0); EOSINOPHILS % (AUTO) 2.9 % (0.0-6.0); HEMATOCRIT 23 % (39-51); HEMOGLOBIN 7.8 g/dL (13.5-17.5); LYMPHOCYTES # (AUTO) 0.7 /CMM (0.8-4.8); MEAN CORPUSCULAR HGB CONC 34 g/dl (31.0-36.0); MEAN CORPUSCULAR VOLUME 93 fL (80-96); MONOCYTES # (AUTO) 0.6 /CMM (0.1-1.30); MONOCYTES % (AUTO) 9.5 % (2.0-12.0); NEUTROPHILS # (AUTO) 4.8 /CMM (1.8-8.9); NEUTROPHILS % (AUTO) 76.2 % (43.0-81.0); PLATELET COUNT (AUTO) 192 /CMM (150-450); RED BLOOD CELL COUNT(AUTO) 2.44 MIL/uL (4.5-6.0); WHITE BLOOD COUNT (AUTO) 6.3 K/uL (4.3-11.0)
--- NOTE | 2018-10-13 07:20 | NUR ---
M/S RN NOTES PATIENT LYING IN BED RESTING, ALERT AND ORIENTED X 3. NO RESPIRATORY DISTRESS NOTED. PATIENT ON O2 2L, TOLERATING WELL. NO C/O PAIN AT THIS TIME. SKIN WARM TO TOUCH, IV SL ON THE LFA #16G, INTACT AND PATENT, NO REDNESS, NO INFILTRATION NOTED. PATIENT'S NEEDS ATTENDED. BED ON LOWEST LOCKED POSITION, CALL LIGHT WITHIN REACH. WILL CONTINUE TO MONITOR.
[2018-10-13 07:27] LABS: MAGNESIUM 2.1 mg/dL (1.8-2.4); PHOSPHORUS 6.3 mg/dL (2.5-4.9); POTASSIUM 5.7 mmol/L (3.5-5.1)
[2018-10-13 08:00] VITALS: BP 143/57
[2018-10-13] MEDS: ASCORBIC ACID 500 MG TABLET PO SCH (08:30)
[2018-10-13] MEDS: FOLIC ACID 1 MG TABLET PO SCH (08:30)
[2018-10-13] MEDS: AMLODIPINE BESYLATE 10 MG TABLET PO SCH (08:31)
[2018-10-13] MEDS: PANTOPRAZOLE 40 MG TABLET.DR PO SCH (08:31)
[2018-10-13] MEDS: FERROUS SULFATE (325 MG) 325 MG/TAB TABLET PO SCH ×2 (08:31→16:49)
[2018-10-13] MEDS: hydrALAZINE HCL 50 MG TABLET PO SCH ×4 (08:31→20:37)
[2018-10-13] MEDS: SEVELAMER CARBONATE 0.8 GM POWD.PACK PO SCH ×3 (08:32→17:18)
[2018-10-13] MEDS: PROSOURCE / PROSTAT (PYXIS) 30 ML UDC GT SCH ×3 (08:56→16:48)
[2018-10-13] MEDS: HYDROGEL DRESSING 90 GM TUBE TP SCH ×2 (09:01→20:56)
[2018-10-13] MEDS: Z GUARD REMEDY 2 OZ OINT TP SCH (09:01)
[2018-10-13] MEDS: CLOTRIMAZOLE 1% 15 GM TUBE TP SCH ×2 (09:01→17:17)
[2018-10-13] MEDS: NEOMY SULF/BACITRAC ZN/POLY 15 GM TUBE TP SCH ×2 (09:02→20:56)
[2018-10-13] MEDS: MUPIROCIN OINT 2% 22 GM TUBE SCH ×2 (09:02→20:56)
[2018-10-13] MEDS: INSULIN REGULAR, HUMAN 100 UNIT/ML 3 ML VIAL SQ PRN ×2 (11:20→17:12)
[2018-10-13] MEDS ORDERED: VANCOMYCIN 500 MG in IV D5W 100 ML IV ONE (12:00)
[2018-10-13] MEDS: SERTRALINE HCL 50 MG TABLET PO SCH (12:10)
[2018-10-13] MEDS: ASPIRIN EC 81 MG TABLET.DR PO SCH (12:13)
[2018-10-13 16:00] VITALS: BP 142/66
--- NOTE | 2018-10-13 18:05 | NUR ---
M/S RN NOTES PATIENT LYING IN BED RESTING, ALERT AND ORIENTED X3. NO RESPIRATORY DISTRESS NOTED, ON NASAL CANULA O2 2L, TOLERATING WELL. NO C/O PAIN AT THIS TIME. SKIN WARM TO TOUCH. PATIENT'S NEEDS ATTENDED. MEDICATIONS GIVEN ORDERED. BED ON LOWEST LOCKED POSITION, CALL LIGHT WITHIN REACH. WILL ENDORSE TO ONCOMING NURSE.
--- NOTE | 2018-10-13 19:15 | NUR ---
RN gloriasurbethanie opening notes Received Pt from morning nurse. Pt is alert and oriented X2 and able to make needs known. Pt is laying in bed comfortably. Respiration is normal. Pt is on 2 L NC. NO SOB. Pt denies any pain or discomfort at this time. IV sites on LFA #16 is intact, patent and flush without resistance. Instructed to call. Contact precautions is maintained for VRE and MRSA to sacral wound and MRSA for blood. Repositioning and turning Q 2hr. Instructed to call. Safety precautions is maintained. Bed at low position, brakes on and side rails upX2 and call light is within reach. Will continue to monitor and assist all needs.
[2018-10-13 20:57] VITALS: BP 135/64
--- NOTE | 2018-10-13 21:00 | NUR ---
RN medsurg notes Found the Pt was scratching right elbow and bleed a little bit. Pt's stated was itchy. Cleaned the right elbow with NS and applied mepilex and kerlix. Informed the Pt not to removed the dressing. Pt verbalized understanding. Will continue to monitor.
[2018-10-13] MEDS: SENNOSIDES 8.6 MG TABLET PO SCH (21:13)
[2018-10-13] MEDS: ATORVASTATIN 10 MG TABLET PO SCH (21:13)
[2018-10-13] MEDS: TERAZOSIN HCL 5 MG CAPSULE PO SCH (21:14)
[2018-10-13] MEDS: *INSULIN REGULAR(HUMULIN R)HUM 100 UNIT/ML VIAL SQ PRN (21:35)
--- NOTE | 2018-10-13 21:35 | NUR ---
RN gloriasurbethanie notes Pt's blood glucose was 157. Administered Insulin Regular 2 units at Right abdomen.
[2018-10-14 05:17] VITALS: BP 123/64
[2018-10-14] MEDS: GABAPENTIN 300 MG CAPSULE PO SCH ×3 (05:38→21:03)
[2018-10-14] MEDS: PROPRANOLOL HCL 10 MG TABLET PO SCH ×2 (05:39→17:02)
--- NOTE | 2018-10-14 06:30 | NUR ---
RN medsurg closing notes Pt is resting in bed comfortably. Awaken easily. Respiration is normal. No SOB. Pt is on 2 L NC. Pt denies any pain or discomfort at this time. VS is stable and afebrile. IV sites at LFA is patent, intact and flush without resistance. Routine meds are given and all needs met. Skin care provided. Contact precautions for VRE/MRSA sacral wound and MRSA blood is maintained. Safety precautions is maintained. Instructed to call. Bed at low position and call light is within reach. Will endorse to morning nurse for EVELYN.
[2018-10-14] MEDS: BLOOD SUGAR DIAGNOSTIC 1 EACH STRIP VI SCH ×4 (06:44→21:21)
[2018-10-14 07:07] LABS: CREATININE 8.6 mg/dL (0.6-1.3)
[2018-10-14 07:22] LABS: BASOPHILS % (AUTO) 0.5 % (0.0-2.0); EOSINOPHILS % (AUTO) 3.1 % (0.0-6.0); HEMATOCRIT 24 % (39-51); HEMOGLOBIN 8.1 g/dL (13.5-17.5); LYMPHOCYTES # (AUTO) 0.7 /CMM (0.8-4.8); LYMPHOCYTES % (AUTO) 10.4 % (20.0-44.0); MEAN CORPUSCULAR HGB CONC 34 g/dl (31.0-36.0); MEAN CORPUSCULAR VOLUME 93 fL (80-96); MONOCYTES # (AUTO) 0.6 /CMM (0.1-1.30); MONOCYTES % (AUTO) 9.7 % (2.0-12.0); NEUTROPHILS # (AUTO) 4.9 /CMM (1.8-8.9); NEUTROPHILS % (AUTO) 76.3 % (43.0-81.0); PLATELET COUNT (AUTO) 202 /CMM (150-450); RED BLOOD CELL COUNT(AUTO) 2.58 MIL/uL (4.5-6.0); WHITE BLOOD COUNT (AUTO) 6.4 K/uL (4.3-11.0)
--- NOTE | 2018-10-14 07:30 | NUR ---
m/s completion manager: initial assessment received pt in bed asleep, but easily arousable. no c/o pain or any discomfort. isolation precaution maintained. right chest wall dressing in place. no drainage/discharge noted. instructed to call for assistance. will continue to monitor.
[2018-10-14 07:38] LABS: POTASSIUM 6.2 mmol/L (3.5-5.1)
[2018-10-14 08:00] VITALS: BP 131/56
[2018-10-14] MEDS: AMLODIPINE BESYLATE 10 MG TABLET PO SCH (08:45)
[2018-10-14] MEDS: FERROUS SULFATE (325 MG) 325 MG/TAB TABLET PO SCH ×2 (08:45→17:07)
[2018-10-14] MEDS: ASCORBIC ACID 500 MG TABLET PO SCH (08:45)
[2018-10-14] MEDS: PROSOURCE / PROSTAT (PYXIS) 30 ML UDC GT SCH ×3 (08:45→17:06)
[2018-10-14] MEDS: FOLIC ACID 1 MG TABLET PO SCH (08:45)
[2018-10-14] MEDS: SEVELAMER CARBONATE 0.8 GM POWD.PACK PO SCH ×3 (08:45→17:07)
[2018-10-14] MEDS: PANTOPRAZOLE 40 MG TABLET.DR PO SCH (08:45)
[2018-10-14] MEDS: hydrALAZINE HCL 50 MG TABLET PO SCH ×4 (08:46→21:06)
[2018-10-14] MEDS: HYDROGEL DRESSING 90 GM TUBE TP SCH (09:59)
[2018-10-14] MEDS: Z GUARD REMEDY 2 OZ OINT TP SCH (10:00)
[2018-10-14] MEDS: NEOMY SULF/BACITRAC ZN/POLY 15 GM TUBE TP SCH ×2 (10:00→21:18)
[2018-10-14] MEDS: CLOTRIMAZOLE 1% 15 GM TUBE TP SCH (10:00)
[2018-10-14] MEDS: MUPIROCIN OINT 2% 22 GM TUBE SCH ×2 (10:01→21:19)
--- NOTE | 2018-10-14 10:40 | NUR ---
m/s inner tube tuber machine operator: notes f/u made to [facility], spoke to [facility] (rn) re: av shunt on left upper arm and provided a number at [facility] [place]. [facility] notified, spoke to roderick and informed me that his av shunt on left upper was not working since months ago as stated.
--- NOTE | 2018-10-14 10:55 | NUR ---
M/S CHIEF RECORDIST: PLASTIC SURGEON SEEN AND EXAMINED BY Eugenia MEIER WITH NEW TX ORDERS. ALSO RECEIVED ORDER TO D'C LOTRIMIN CREAM AND WILL CHANGE CREAM STATED.
[2018-10-14] MEDS: CLOTRIMAZOLE/BETAMETASONE DIPROPIONATE 15 GM TUBE TP SCH ×2 (11:00→16:46)
--- NOTE | 2018-10-14 12:00 | NUR ---
m/s pulp operator: notes [facility] (picc line nurse) here to insert a temporary dialysis catheter. pt aware and consent obtained from pt. all supplies at bedside. will continue to monitor.
[2018-10-14] MEDS: INSULIN REGULAR, HUMAN 100 UNIT/ML 3 ML VIAL SQ PRN (12:02)
--- NOTE | 2018-10-14 12:30 | NUR ---
m/s customer service dispatcher: notes hemodialysis catheter 18 fr inserted by [facility] (rn). frank (hd) notified and made aware and will have tx today. consent obtained for hd tx from pt. will continue to monitor.
--- NOTE | 2018-10-14 12:47 | NUR ---
SHORT TERM HEMODIALYSIS CATHETER INSERTION PATIENT CONFIRMED TO BE CORRECT PATIENT. INFORMED CONSENT SIGNED. ALL QUESTIONS BY PATIENT ANSWERED. TIME OUT PERFORM WITH RN. PROCEDURE COMPLETED USING STERILE TECHNIQUE. SITE DETERMINED TO BE RIGHT FEMORAL VEIN. SITE PREPPED WITH CHLORHEXIDINE AND ALLOWED TO COMPLETELY DRY. LIDOCAINE 1% USED TO ANESTHETIZE INSERTION SITE. RIGHT FEMORAL VEIN ACCESSED WITH NEEDLE UNDER ULTRASOUND GUIDANCE. GUIDEWIRE INSERTED AND NEEDLE REMOVED. INSERTION SITE CUT 3MM WITH SCALPEL. DILATOR INSERTED OVER GUIDEWIRE AND THEN REMOVED. HD CATHETER INSERTED COMPLETELY WITHOUT RESISTANCE. GUIDEWIRE REMOVED. BLOOD RETURN CONFIRMED WITH BOTH LUMENS. SECURED WITH TWO SUTURES. BIOPATCH PLACED AND COVERED WITH TEGADERM. NO S/S OF COMPLICATIONS. PATIENT TOLERATED WELL WITH MINIMAL BLOOD LOSS. ESTIMATED BLOOD LOSS: 2 ML.
--- NOTE | 2018-10-14 13:30 | NUR ---
m/s rural route mail carrier: md visit seen by dr. gonzalez with order to d'c pt back to snf with id antibiotics recommendation. order acknowledged. informed dr. gonzalez that id recommends 2d echo to r/o endocarditis with order to do it stat. order read back and carried out and acknowledged. ami (plumbing service technician) aware. Addendum: 10/14/18 at 1450 by EMELY LOYD LVN held hydralazine med due to hd tx this afternoon.
[2018-10-14] MEDS: ASPIRIN EC 81 MG TABLET.DR PO SCH (13:42)
[2018-10-14] MEDS: SERTRALINE HCL 50 MG TABLET PO SCH (13:42)
--- NOTE | 2018-10-14 14:00 | NUR ---
m/s high school industrial arts teacher: notes f/u made to pharmacy, spoke to wilton and informed her of lotrisone cream ordered at 1100 this morning.
--- NOTE | 2018-10-14 14:45 | NUR ---
m/s supervisor instrument mechanics: id f/u seen by dr. daniels at this time and will f/u at [facility] and pt needs to Continue Vancomycin IV (10/05/2018-) to finish 2 weeks total.
--- NOTE | 2018-10-14 15:40 | NUR ---
m/s criminal justice faculty: notes f/u made to [facility] (grade foreman) re: stat echo and will let and remind kassi (tech).
[2018-10-14 16:00] VITALS: BP 128/60
--- NOTE | 2018-10-14 17:00 | NUR ---
m/s cotton farmer: notes 2d echo completed with preliminary report findings: no endocarditis per tech, but will have radiologist read the report. pt for d'c planning tonight if okay with facility and family per franck (case management). franck will call facility and family and will let me know if they are okay for discharge tonight. held all b/p meds due to hd tx today.
--- NOTE | 2018-10-14 17:30 | NUR ---
m/s chef instructor: notes per cn, [facility] will accept pt late tonight and family has been contacted by case management re: d'c to snf tonight. pt made aware. pm and incontinent of bowel and bladder rendered by staff. tx done to sacral wound as ordered. dinner served. hob elevated. awaiting for hd nurse to come in. will continue to monitor.
--- NOTE | 2018-10-14 17:50 | NUR ---
m/s shopper's aide: notes checked in with pharmacist, spoke to albino re: pt will have dialysis tx this evening and his vanco trough=[phone] at 0600 today. per pharmacist no need for iv vancomycin today.
--- NOTE | 2018-10-14 17:55 | NUR ---
m/s bale sewer: notes report given to joseph mehta) at [facility] for continuity of care.
--- NOTE | 2018-10-14 18:00 | NUR ---
m/s hand cell tuber: notes hd nurse here and preparing pt for hd tx at this time. labs provided to tana (hd nurse). hd access connected to right femoral. pt for pharmacy picking technician at 2100. pt aware. will continue to monitor.
--- NOTE | 2018-10-14 18:52 | NUR ---
m/s proofsheet corrector: notes hd in progress. for d'c to snf tonight. will continue to monitor.
--- NOTE | 2018-10-14 19:15 | NUR ---
rn pm opening notes. bedside report recieved from tri segura. patien in bed in no apparent distres. recieving dialysis, dialysis nurse at the bedside. . patient is to be discharged with [facility] transport arranged for 9pm to go to [facility]. report per tri was given to joseph already so they are expecting patient. reviewed poc with patient questions concerns addressed.
--- NOTE | 2018-10-14 19:20 | NUR ---
m/s dental office assistant: notes report given to kellie (rn) for continuity of care and pt for d'c tonight after hd tx. hd tx in progress. needs attended.
[2018-10-14 20:00] VITALS: BP 129/56
[2018-10-14] MEDS: TERAZOSIN HCL 5 MG CAPSULE PO SCH (21:04)
[2018-10-14] MEDS: ATORVASTATIN 10 MG TABLET PO SCH (21:04)
[2018-10-14] MEDS: SENNOSIDES 8.6 MG TABLET PO SCH (21:04)
[2018-10-14 21:06] VITALS: BP 129/56
--- NOTE | 2018-10-14 21:35 | NUR ---
patient discharged. patient picked up by isaias san at [id number] report given to emt techs. patient escorted off nit viia stretcer in no apparent distress. patient going to [facility]. attempted to call [facility] at [phone], [phone] with no answer and phone message left with call back number for unit if they need additonal information. report was given earlier to joseph so the facily was in acceptance of the patent.
[2018-10-19] MEDS ORDERED: BISA10SU11 RC (07:28)
== END 2018-10-14 21:20 | DRG 314 ==
LOC: ER 21:08 → TELE 10-05 01:45 → MED 10-05 08:56
PROVIDERS: ADMIT Student in an Organized Health Care Education/Training Program
PROC: 5A1D70Z Performance of Urinary Filtration, Intermittent, Less than 6 Hours Per Day (ICD-10-PCS; 2018-10-05)
PROC: 05PYX3Z Removal of Infusion Device from Upper Vein, External Approach (ICD-10-PCS; principal; 2018-10-10)
PROC: 05HY33Z Insertion of Infusion Device into Upper Vein, Percutaneous Approach (ICD-10-PCS; 2018-10-14)
DX: T80.211A Bloodstream infection due to central venous catheter, initial encounter (principal); J18.9 Pneumonia, unspecified organism; N18.6 End stage renal disease; G93.41 Metabolic encephalopathy; R53.2 Functional quadriplegia; A41.02 Sepsis due to Methicillin resistant Staphylococcus aureus; E44.0 Moderate protein-calorie malnutrition; I12.0 Hypertensive chronic kidney disease with stage 5 chronic kidney disease or end stage renal disease; E87.2 Acidosis; J81.1 Chronic pulmonary edema; E11.22 Type 2 diabetes mellitus with diabetic chronic kidney disease; Z66 Do not resuscitate; D63.1 Anemia in chronic kidney disease; N40.0 Benign prostatic hyperplasia without lower urinary tract symptoms; Z88.0 Allergy status to penicillin; Z87.01 Personal history of pneumonia (recurrent); L30.4 Erythema intertrigo; Z99.2 Dependence on renal dialysis; Z89.512 Acquired absence of left leg below knee; G31.84 Mild cognitive impairment of uncertain or unknown etiology; E88.09 Other disorders of plasma-protein metabolism, not elsewhere classified; L89.150 Pressure ulcer of sacral region, unstageable; L89.320 Pressure ulcer of left buttock, unstageable; L89.310 Pressure ulcer of right buttock, unstageable; L98.8 Other specified disorders of the skin and subcutaneous tissue; Z68.28 Body mass index [BMI] 28.0-28.9, adult; B95.2 Enterococcus as the cause of diseases classified elsewhere; Y84.8 Other medical procedures as the cause of abnormal reaction of the patient, or of later complication, without mention of misadventure at the time of the procedure; Y92.129 Unspecified place in nursing home as the place of occurrence of the external cause; Z79.4 Long term (current) use of insulin
CPT/HCPCS: 36415; 36600; 71045-TC; 80048-TC; 80061-TC; 80076-TC; 80202-TC; 82803-TC; 82962-TC; 83540-TC; 83605-TC; 83735-TC; 84100-TC; 84484-TC; 85025-TC; 85610-TC; 85730-TC; 86706; 87040-TC; 87070-TC; 87081-TC; 87340; 90935-TC; 92521; 92526; 93307-TC; 94799-TC; A4216; A6248; A6253; A6403; C1750; G0378; J0885; J1644; J1815; J1940; J1956; J2185; J2543; J3370; J3490; J7030; J7040; J7050; J7060

== ENCOUNTER 2018-10-19 06:18 | Inpatient (IN) | payer MEDICARE ==
[~2018-10-19] VITALS: Ht 170.2 cm; Wt 82.6 kg
[~2018-10-19 06:18] MED LIST changes: -ACET-868 PO; -AMIN30LI2 PO; +ATOR10TA PO; -DORZ10DR13 EACHEYE; -FOLI0.8T2 PO; +FOLI1TAB16 PO; -HYDR-3026 PO; +INSU100V11 SQ; -INSU100V3 SQ; -MAGN400O6 PO; -NEPA3DRO RIGHTEYE; +PANT40TA2 PO; -PRAV40TA3 PO; +SENN-168 PO
--- NOTE | 2018-10-19 06:20 | NUR ---
DR. ZAPATA AT BEDSIDE FOR EVAL.
--- NOTE | 2018-10-19 06:25 | NUR ---
IV LINE ESTABLISHED, BLOOD DRAWNED AND SENT TO LAB.
--- NOTE | 2018-10-19 06:26 | NUR ---
PT [id number] FROM [facility] FOR LOW O2SAT IN THE 70'S X 20 MIN. PATIENT ARRIVES IN ER ON NRB, SEEN HERE ON 10/14/18 DX W/PNEUMONIA. PT IS AAOX2, NOTED RESPIRATORY DISTRESS, HOOKED TO MONEY MARKET DEALER, KEPT RESTED AND COMFORTABLE, WILL CONTINUE TO MONITOR.
--- NOTE | 2018-10-19 06:26 | NUR ---
RT AT BEDSIDE FOR BIPAP SET UP.
[2018-10-19 06:44] LABS: BASOPHILS # (AUTO) 0.1 /CMM (0.0-0.2); BASOPHILS % (AUTO) 0.8 % (0.0-2.0); EOSINOPHILS % (AUTO) 2.2 % (0.0-6.0); HEMATOCRIT 24 % (39-51); HEMOGLOBIN 7.8 g/dL (13.5-17.5); LYMPHOCYTES # (AUTO) 0.6 /CMM (0.8-4.8); LYMPHOCYTES % (AUTO) 4.8 % (20.0-44.0); MEAN CORPUSCULAR HGB CONC 33 g/dl (31.0-36.0); MEAN CORPUSCULAR VOLUME 96 fL (80-96); MONOCYTES # (AUTO) 0.5 /CMM (0.1-1.30); NEUTROPHILS % (AUTO) 88.2 % (43.0-81.0); PLATELET COUNT (AUTO) 326 /CMM (150-450); RED BLOOD CELL COUNT(AUTO) 2.47 MIL/uL (4.5-6.0); WHITE BLOOD COUNT (AUTO) 12.4 K/uL (4.3-11.0)
--- NOTE | 2018-10-19 06:44 | NUR ---
pt rec'd on 100% nrb mask @ 15lpm. pt showed signs of resp distress: tachypnea, diaphoresis, and use of accessory muscles. bilateral course crackles heard on auscultation. pt placed on bipap per md orders on noted settings as charted. abg to be taken in 30 minutes. alarms are set and audible. bipap plugged into red outlet. ambu bag bedside. will continue to monitor. Addendum: 10/19/18 at 0647 by JESSY PHELPS RT Amended: Links added.
--- NOTE | 2018-10-19 06:47 | NUR ---
PNEUMATIC TUBE FITTER AT BEDSIDE FOR XRAY.
[2018-10-19 06:55] LABS: CARBON DIOXIDE 28 mmol/L (21-32); CHLORIDE 104 mmol/L (98-107); CREATININE 4.4 mg/dL (0.6-1.3); GLUCOSE 197 mg/dL (74-106); POTASSIUM 4.4 mmol/L (3.5-5.1); SODIUM SERUM 143 mmol/L (136-145); UREA NITROGEN, BLOOD 31 mg/dL (7-18)
[2018-10-19 07:06] LABS: ALANINE AMINOTRANSFERASE 11 U/L (12-78); ALBUMIN 2.6 g/dL (3.4-5.0); ALKALINE PHOSPHATASE 89 U/L (46-116); ASPARTATE AMINOTRANSFERASE 7 U/L (15-37); BILIRUBIN,DIRECT 0.1 mg/dL (0.0-0.2); BILIRUBIN,TOTAL 0.4 mg/dL (0.2-1.0); TOTAL PROTEIN, SERUM 6.3 g/dL (6.4-8.2)
--- NOTE | 2018-10-19 07:20 | NUR ---
report received from herson levine rn for mateo, pt awake, hooked to monitor, hooked to bipap with settings of ipap 16, epap 4, rate 22, o2 100%, will continue to monitor, kept warm, safe and comfortable
[2018-10-19] MEDS ORDERED: AMIN30LI27 PO (07:27)
[2018-10-19] MEDS ORDERED: NUT.237L67 PO (07:27)
[2018-10-19] MEDS ORDERED: ALBU2.5V38 IH (07:27)
[2018-10-19] MEDS ORDERED: ACET-868 PO (07:27)
[2018-10-19] MEDS ORDERED: IPRA0.2S9 IH (07:27)
[2018-10-19] MEDS ORDERED: FERR325T23 PO (07:27)
[2018-10-19] MEDS ORDERED: MAGN400O6 PO (07:27)
[2018-10-19] MEDS ORDERED: HYDR-4384 PO (07:27)
[2018-10-19] MEDS ORDERED: BISA10SU8 RC (07:28)
[2018-10-19] MEDS ORDERED: NA P133E RC (07:28)
[2018-10-19] MEDS ORDERED: MEROPENEM 1,000 MG in IV NS 0.9% 100 ML IV ONE (07:30)
[2018-10-19] MEDS ORDERED: VANCOMYCIN 1 GM in IV D5W 250 ML IV ONE (07:30)
[2018-10-19 07:42] LABS: B-TYPE NATRIURETIC PEPTIDE 50940 PG/ML (0-125)
--- NOTE | 2018-10-19 07:45 | NUR ---
PAGED PRISCILLA. MEAGAN SAAVEDRA LAND LEVELER.
--- NOTE | 2018-10-19 07:45 | NUR ---
Whitney dunn in [facility] - 10/19/18 at 0748 by CAMPBELL JACINTO SAAVEDRA NP DEHYDROGENATION CONVERTER OPERATOR.
--- NOTE | 2018-10-19 07:46 | NUR ---
RT AT BEDSIDE, PT REMOVED FROM BIPAP, PLACED ON NC AT 5LPM. WILL CONTINUE TO MONITOR
--- NOTE | 2018-10-19 08:54 | NUR ---
REPORT GIVEN TO TAWANNA RUTLEDGE OF TELE UNIT
[2018-10-19 09:00] VITALS: BP 99/60
--- NOTE | 2018-10-19 09:00 | NUR ---
RECEIVED REPORT FROM ADRIANA HINES
--- NOTE | 2018-10-19 09:15 | NUR ---
FLAVOR ROOM WORKER NOTES PATIENT TRANSFERED TO UNIT VIA AMILCAR
--- NOTE | 2018-10-19 09:45 | NUR ---
OVERLOCK SEWING MACHINE OPERATOR NOTES RECEIVED PATIENT FROM ED A/O X3 OCCITAN SPEAKING. ON 4 LTRS NASAL CANNULA NO S/S OF RESPIRATORY DISTRESS OR ACUTE PAIN NOTED SKIN ASSESSMENT DONE AND PHOTOS TAKEN. IV VANCO RUNNING IN L HAND # 20 GAUGE. RIGHT FEMORAL ACCESS FOR HD DRESSING INTACT LAST HD UNKNOWN. INCONTINENT SMALL BOWEL MOVEMENT DURING ASSESSMENT. LEFT BKA STUMP CLEAN AND DRY WOUND CONSULT ORDERED. VS T 98.3 HR 66 B/P 99/60 RR18 O2 96% ON 4 LTRS. ANA SAAVEDRA SCOOP FILLER NOTIFIED OF PATIENT ON UNIT. SAFETY AND ASPIRATION PRECAUTIONS IN PLACE BED IN LOW POSITION ORIENTED TO ROOM AND CALL SYSTEM. WILL CONT TO MONITOR APPROPRIATELY
[2018-10-19 12:00] VITALS: BP 110/68
--- NOTE | 2018-10-19 12:00 | NUR ---
AWAITING ORDERS BS 101 MG/DL OBTAINED ORDER FOR STANDARD RENAL DIET.
[2018-10-19] MEDS ORDERED: HYDROCODONE/APAP 5/325MG 1 EACH TABLET PO PRN (13:00)
[2018-10-19] MEDS ORDERED: ACETAMINOPHEN 325 MG TABLET PO PRN (13:00)
[2018-10-19] MEDS ORDERED: DEXTROSE 50%-WATER 50 ML DISP.SYRIN IV PRN (13:00)
[2018-10-19] MEDS ORDERED: ONDANSETRON HCL/PF 4 MG/2 ML VIAL IVP PRN (13:00)
[2018-10-19] MEDS ORDERED: ZOLPIDEM TARTRATE 5 MG TABLET PO PRN (13:00)
[2018-10-19] MEDS ORDERED: Z GUARD REMEDY 2 OZ OINT TP PRN (13:00)
[2018-10-19] MEDS: INSULIN REGULAR, HUMAN 100 UNIT/ML 3 ML VIAL SQ PRN ×3 (13:01→22:23)
[2018-10-19] MEDS: BLOOD SUGAR DIAGNOSTIC 1 EACH STRIP IN SCH ×3 (13:01→22:05)
--- NOTE | 2018-10-19 13:27 | NUR ---
US RENAL CALLED PT TO BE HD @ 1600
[2018-10-19] MEDS ORDERED: FEE PK DOSING 1 MIN EA MC ONE (13:53)
--- NOTE | 2018-10-19 14:52 | NUR ---
CONSENT OBTAINED FROM PT FOR HEMODIALYSIS
--- NOTE | 2018-10-19 14:53 | NUR ---
O2 DECREASED TO 2 LTRS NASAL CANNULA PATIENT TOLERATING WELL 99%
[2018-10-19 16:00] VITALS: BP 120/70
--- NOTE | 2018-10-19 18:19 | NUR ---
HERMINIA HELD D/T PATIENT HAVING DIALYSIS. SPOKE WITH PHARMACY OK TO RUN AFTER HD DONE
--- NOTE | 2018-10-19 18:36 | NUR ---
MANUFACTURING RECRUITER NOTES PATIENT IMPROVING THROUGHOUT SHIFT. NO SIGNS OR SYMPTOMS OF RESPIRATORY DISTRESS 96-98% ON 2 LTRS NASAL CANNULA. NO C/O PAIN. A/O X 3. SINUS ON THE MONITOR IN 60'S. CURRENTLY HAVING HD. INCONTINENT /ANURIC . APPETITE GOOD NO N/V/D NOTED 1000 ML FLUID RESTRICTION. WOUND CONSULT ORDERED MEPILEX AND Z GUARD APPLIED TO SACRAL. IV TO RIGHT HAND # 20 GAUGE SL. RIGHT FEMORAL TEMP LINE FOR HD . NO EPISODES OF HYPO/HYPERGLYCEMIA NOTED. KEPT CLEAN AND DRY REPOSITIONED Q2 HRS. SAFETY PRECAUTIONS IN PLACE BED IN LOW POSITION CALL LIGHT WITHIN REACH.
--- NOTE | 2018-10-19 19:24 | NUR ---
report endorsed to noc
--- NOTE | 2018-10-19 19:30 | NUR ---
RN OPENING PM NOTES: PT IN STABLE CONDITION. CURRENTLY RECIEVING DIALYSIS ON ENDORSEMENT. DIALYSIS STARTED AT 1500 PER AM NURSE. SATTING WELL. PT IN BED COMFORTABLY, BED IN LOCKED LOW POSITION WITH CALL LIGHT WITHIN REACH. SAFETY PERCAUTIONS IN PLACE. PHARAMCY IS AWARE OF THE HOLD ON ANTIBITOCS DUE TO DIALYSIS TAKING PLACE. WILL CONT TO MONITER.
[2018-10-19 20:00] VITALS: BP_SYST 135; BP_SYST 14; BP_DIAS 61; BP_DIAS 71
--- NOTE | 2018-10-19 20:15 | NUR ---
DIALYSIS JUST FINISHED. PHARMACY AWARE THAT MERREM WAS TO BE INFUSED AFTER DIALYSIS WAS FINISHED. HUNG AT 2030
[2018-10-19] MEDS: MEROPENEM 500 MG in IV NS 0.9% 50 ML IV SCH (20:28)
[2018-10-19 22:00] VITALS: BP 135/61
[2018-10-20] VITALS (7 sets, daily range): BP systolic 128–159; BP diastolic 56–69
--- NOTE | 2018-10-20 02:45 | NUR ---
INCREASED PT 02 TO 4 LITERS DUE TO SATURATION OF 85% AND INCREASED HOB
[2018-10-20] MEDS: MEROPENEM 500 MG in IV NS 0.9% 50 ML IV SCH ×2 (05:19→17:57)
[2018-10-20 06:22] LABS: BASOPHILS # (AUTO) 0.1 /CMM (0.0-0.2); BASOPHILS % (AUTO) 0.7 % (0.0-2.0); EOSINOPHILS % (AUTO) 2.6 % (0.0-6.0); HEMATOCRIT 21 % (39-51); HEMOGLOBIN 7.1 g/dL (13.5-17.5); LYMPHOCYTES # (AUTO) 0.5 /CMM (0.8-4.8); MEAN CORPUSCULAR HGB CONC 34 g/dl (31.0-36.0); MEAN CORPUSCULAR VOLUME 95 fL (80-96); MONOCYTES # (AUTO) 0.5 /CMM (0.1-1.30); MONOCYTES % (AUTO) 4.8 % (2.0-12.0); NEUTROPHILS # (AUTO) 8.8 /CMM (1.8-8.9); NEUTROPHILS % (AUTO) 86.9 % (43.0-81.0); PLATELET COUNT (AUTO) 260 /CMM (150-450); RED BLOOD CELL COUNT(AUTO) 2.22 MIL/uL (4.5-6.0); WHITE BLOOD COUNT (AUTO) 10.1 K/uL (4.3-11.0)
[2018-10-20 06:47] LABS: CALCIUM, SERUM 7.4 mg/dL (8.5-10.1); CREATININE 3.1 mg/dL (0.6-1.3); MAGNESIUM 1.7 mg/dL (1.8-2.4); POTASSIUM 3.4 mmol/L (3.5-5.1)
--- NOTE | 2018-10-20 07:00 | NUR ---
GROUND SUPPORT EQUIPMENT FITTER CLOSING NOTES . NO CURRENT OF SOB OR RESP DISTRESS. 96-98% BACK ON 4 LTRS NASAL CANNULA. NO C/O PAIN. A/O X 3. SINUS ON THE MONITOR IN 60'S. CURRENTLY HAVING HD. INCONTINENT /ANURIC .PT ATE 50 PERCENT OF DINNER AFTER DIALYSIS WAS DONE. 800 OUT REPORTED FROM DIAYLSIS NURSE. . KEPT CLEAN AND DRY REPOSITIONED Q2 HRS. SAFETY PRECAUTIONS IN PLACE BED IN LOW POSITION CALL LIGHT WITHIN REACH.PT HAD 850 ML DURING MY SHIFT. WILL ENDORSE TO AM NURSE
--- NOTE | 2018-10-20 07:33 | NUR ---
STAFF READINESS OFFICER OPENING NOTES RECEIVED BEDSIDE REPORT. PATIENT A/O X 2. NO SIGNS OR SYMPTOMS OF RESPIRATORY DISTRESS SATURATING 94% ON 4 LTRS NASAL CANNULA. REPORT GIVEN THAT PATIENT DESATURATING IN THE EVENING. NO C/O PAIN.IV TO R HAND # 20 SALINE LOCK.RIGHT FEMORAL ACCESS FOR HD. NO BLOOD DRAWS OR B/P TO BE DONE ON LEFT ARM PATIENT A DIALYSIS PATIENT. SAFETY AND ASPIRATION PRECAUTIONS IN PLACE BED IN LOW POSITION CALL LIGHT WITHIN REACH WILL MONITOR ACCORDINGLY
[2018-10-20] MEDS: BLOOD SUGAR DIAGNOSTIC 1 EACH STRIP IN SCH ×4 (07:56→22:12)
[2018-10-20] MEDS: INSULIN REGULAR, HUMAN 100 UNIT/ML 3 ML VIAL SQ PRN ×4 (08:00→22:19)
[2018-10-20] MEDS ORDERED: POTASSIUM CHLORIDE 20 MEQ TAB.PRT.SR PO SCH (08:30)
[2018-10-20] MEDS: Magnesium 1GM/D5W 100ML PREMIX 100 ML IV SCH ×2 (08:32→13:10)
--- NOTE | 2018-10-20 09:50 | NUR ---
SECOND BAG OF MAG HELD PATIENT RECEIVING DIALYSIS
[2018-10-20] MEDS ORDERED: VANCOMYCIN 500 MG in IV D5W 100 ML IV PRN (10:30)
[2018-10-20] MEDS ORDERED: NEPRO VAN 237 ML CAN PO PRN (10:30)
[2018-10-20] MEDS ORDERED: hydrALAZINE HCL 50 MG TABLET PO SCH (11:00)
[2018-10-20] MEDS: ASCORBIC ACID 500 MG TABLET PO SCH (12:42)
[2018-10-20] MEDS: FOLIC ACID 1 MG TABLET PO SCH (12:42)
[2018-10-20] MEDS: AMLODIPINE BESYLATE 10 MG TABLET PO SCH (12:42)
[2018-10-20] MEDS: PANTOPRAZOLE 40 MG TABLET.DR PO SCH (12:42)
[2018-10-20] MEDS: SEVELAMER CARBONATE 800 MG TABLET PO SCH ×3 (12:42→17:05)
[2018-10-20] MEDS: hydrALAZINE HCL 50 MG TABLET PO SCH ×3 (13:00→22:11)
--- NOTE | 2018-10-20 13:33 | NUR ---
MED ADMINISTERED LATE D/T PATIENT RECEIVING DIALYSIS AND MED RECON
[2018-10-20] MEDS: SERTRALINE HCL 50 MG TABLET PO SCH (13:35)
[2018-10-20] MEDS: ASPIRIN EC 81 MG TABLET.DR PO SCH (13:36)
[2018-10-20] MEDS: GABAPENTIN 300 MG CAPSULE PO SCH ×2 (13:36→22:10)
[2018-10-20] MEDS: PROPRANOLOL HCL 10 MG TABLET PO SCH (17:04)
[2018-10-20] MEDS: LACTOBACILLUS RHAMNOSUS GG 1 EACH CAP.SPRINK PO SCH (17:05)
[2018-10-20] MEDS: FERROUS SULFATE (325 MG) 325 MG/TAB TABLET PO SCH (17:05)
--- NOTE | 2018-10-20 18:41 | NUR ---
LAUNDRY HOUSEKEEPER NOTES NO SIGNIFICANT CHANGES THROUGHOUT THE SHIFT. NO SIGNS OR SYMPTOMS OF RESPIRATORY DISTRESS AT THIS TIME. PATIENT REMOVED O2 AND DESATURATED INTO HIGH 60'S LOW 70'S CURRENTLY ON 2 LTRS NASAL CANNULA SATURATING 96-98%NO C/O PAIN. A/O X 3. SINUS ON THE MONITOR IN 60'S. PATIENT RECEIVED HD WITH 2500 ML/ OUT INCONTINENT /ANURIC . APPETITE GOOD NO N/V/D NOTED 1000 ML FLUID RESTRICTION. MEPILEX AND Z GUARD APPLIED TO SACRAL. IV TO RIGHT HAND # 20 GAUGE SL. RIGHT FEMORAL TEMP LINE FOR HD . NO EPISODES OF HYPO/HYPERGLYCEMIA NOTED. KEPT CLEAN AND DRY REPOSITIONED Q2 HRS. SAFETY PRECAUTIONS IN PLACE BED IN LOW POSITION CALL LIGHT WITHIN REACH.
--- NOTE | 2018-10-20 19:17 | NUR ---
REPORT ENDORSED TO NOC
--- NOTE | 2018-10-20 19:44 | NUR ---
TELE/RN OPENING NOTES PT RECEIVED AWAKE, SITTING UP IN BED. A/OX2. ON 4L O2 VIA NC, BREATHING EVEN AND UNLABORED. DENIES SOB, NOTES 10/23 SACRAL PAIN. WILL ADMINISTER PAIN MEDS ORDERED. ON TELE MONITOR SHOWING SR 69. IV TO RIGHT HAND PATENT AND INTACT. BED IN LOW/LOCKED POSITION WITH CALL LIGHT IN REACH. HOB ELEVATED. BILAT. UPPER SIDE RAILS IN PLACE. BED ALARM ON FOR SAFETY. WILL CONTINUE TO MONITOR
[2018-10-20] MEDS: ATORVASTATIN 10 MG TABLET PO SCH (22:09)
[2018-10-20] MEDS: SENNOSIDES 8.6 MG TABLET PO SCH (22:09)
[2018-10-20] MEDS: TERAZOSIN HCL 5 MG CAPSULE PO SCH (23:05)
[2018-10-21] VITALS: BP 149/54
[2018-10-21 04:00] VITALS: BP 139/57
[2018-10-21] MEDS: GABAPENTIN 300 MG CAPSULE PO SCH ×3 (06:04→21:13)
[2018-10-21] MEDS: MEROPENEM 500 MG in IV NS 0.9% 50 ML IV SCH (06:04)
[2018-10-21] MEDS: PROPRANOLOL HCL 10 MG TABLET PO SCH ×2 (06:11→17:09)
[2018-10-21 06:40] LABS: BASOPHILS # (AUTO) 0.1 /CMM (0.0-0.2); EOSINOPHILS % (AUTO) 5.1 % (0.0-6.0); HEMATOCRIT 21 % (39-51); LYMPHOCYTES # (AUTO) 0.7 /CMM (0.8-4.8); LYMPHOCYTES % (AUTO) 10.1 % (20.0-44.0); MEAN CORPUSCULAR HGB CONC 33 g/dl (31.0-36.0); MEAN CORPUSCULAR VOLUME 95 fL (80-96); MONOCYTES # (AUTO) 0.4 /CMM (0.1-1.30); MONOCYTES % (AUTO) 5.9 % (2.0-12.0); NEUTROPHILS # (AUTO) 5.7 /CMM (1.8-8.9); NEUTROPHILS % (AUTO) 77.9 % (43.0-81.0); PLATELET COUNT (AUTO) 239 /CMM (150-450); RED BLOOD CELL COUNT(AUTO) 2.22 MIL/uL (4.5-6.0); WHITE BLOOD COUNT (AUTO) 7.3 K/uL (4.3-11.0)
--- NOTE | 2018-10-21 06:44 | NUR ---
TELE/RN NOTES RECEIVED CRITICAL LAB VALUE FROM [facility] 7.0 WILL NOTIFY DAY SHIFT RN TO FOLLOW UP WITH MD.
--- NOTE | 2018-10-21 07:00 | NUR ---
TELE/RN CLOSING NOTES PT ASLEEP, RESPONSIVE TO NAME. A/OX2-3. REMAINS ON 3L O2 VIA NC, BREATHING EVEN AND UNLABORED. DENIES SOB AND PAIN AT THIS TIME. ON TELE MONITOR SHOWING SR 60. TURNED/REPOSITIONED Q2H, PROTECTED SACRUM WITH MEPILEX. WOUND CONSULT ORDERED. IV TO RIGHT HAND PATENT AND INTACT. RIGHT FEMORAL HD IN PLACE, DRESSING C/D/I. NO SIGNIFICANT CHANGES OVERNIGHT. ALL NEEDS MET AND ATTENDED. BED IN LOW/LOCKED POSITION WITH CALL LIGHT IN REACH. HOB ELEVATED. SIDE RAILS UPX3 AND BED ALARM ON FOR SAFETY. WILL ENDORSE TO DAY SHIFT RN EVELYN.
[2018-10-21 07:05] LABS: CALCIUM, SERUM 8.7 mg/dL (8.5-10.1); CREATININE 3.8 mg/dL (0.6-1.3); MAGNESIUM 2.4 mg/dL (1.8-2.4); PHOSPHORUS 3.5 mg/dL (2.5-4.9); POTASSIUM 4.4 mmol/L (3.5-5.1)
--- NOTE | 2018-10-21 07:10 | NUR ---
DESK OPERATOR OPENING NOTES RECEIVED PT LYING ON BED,ALERT/ORIENTED X2.ON TELE HR IS 55 WITH SB.ON NC 3L O2 CONTINUOUSLY.NO SOB AND ACUTE DISTRESS NOTED.IV LINE IS ON RIGHT HAND G20,SL AND RIGHT FEMORAL HD CATH PRESENT,SITE IS CLEAN AND DRY,INTACT.NO INFILTRATION NOTED.BED IS IN LOW POSITION AND LOCKED.CALL LIGHT IS WITHIN REACH.WILL CONTINUE TO MONITOR THE PT CLOSELY.
[2018-10-21] MEDS: BLOOD SUGAR DIAGNOSTIC 1 EACH STRIP IN SCH ×4 (07:59→21:38)
[2018-10-21 08:00] VITALS: BP 141/46
[2018-10-21] MEDS: INSULIN REGULAR, HUMAN 100 UNIT/ML 3 ML VIAL SQ PRN ×3 (08:01→17:20)
[2018-10-21] MEDS: PANTOPRAZOLE 40 MG TABLET.DR PO SCH (08:20)
[2018-10-21] MEDS: ASCORBIC ACID 500 MG TABLET PO SCH (08:39)
[2018-10-21] MEDS: AMLODIPINE BESYLATE 10 MG TABLET PO SCH (08:39)
[2018-10-21] MEDS: LACTOBACILLUS RHAMNOSUS GG 1 EACH CAP.SPRINK PO SCH ×2 (08:39→17:09)
[2018-10-21] MEDS: FERROUS SULFATE (325 MG) 325 MG/TAB TABLET PO SCH ×2 (08:39→17:09)
[2018-10-21] MEDS: FOLIC ACID 1 MG TABLET PO SCH (08:39)
[2018-10-21] MEDS: SEVELAMER CARBONATE 800 MG TABLET PO SCH ×3 (08:39→17:08)
[2018-10-21] MEDS: hydrALAZINE HCL 50 MG TABLET PO SCH ×4 (08:40→21:14)
[2018-10-21] MEDS ORDERED: LIDOCAINE 1%-EPI 1:100,000 20 ML VIAL TP ONE (10:30)
[2018-10-21] MEDS ORDERED: SILVER NITRATE APPLICATOR 1 EA BOX TP ONE (10:30)
--- NOTE | 2018-10-21 11:30 | NUR ---
FORESTRY ADVISER NOTES SURGERY UNIT INFORMED TO CHARGE NURSE THE PT IS SCHEDULED FOR PERMA CATH PLACEMENT TOMORROW @1230PM.NEW ORDERS NOTED AND CARRIED OUT.
[2018-10-21 12:00] VITALS: BP 125/48
[2018-10-21] MEDS: HYDROGEL DRESSING 90 GM TUBE TP SCH ×2 (12:13→21:14)
[2018-10-21] MEDS: ASPIRIN EC 81 MG TABLET.DR PO SCH (12:14)
[2018-10-21] MEDS: SERTRALINE HCL 50 MG TABLET PO SCH (12:14)
[2018-10-21] MEDS: SOD FERRIC GLUC 125 MG in IV NS 0.9% 100 ML IV SCH (14:26)
[2018-10-21] MEDS: CLOTRIMAZOLE 1% 15 GM TUBE TP SCH ×2 (15:44→17:09)
[2018-10-21 16:00] VITALS: BP 150/44
--- NOTE | 2018-10-21 16:00 | NUR ---
MEDICAL DATA ANALYST NOTES DEBRIDEMENT DONE ON SACRUM AND B/L BUTTOCKS BY DILANPT TOLERATED WELL.
--- NOTE | 2018-10-21 18:05 | NUR ---
AMPOULE FILLER NOTES TELEPHONE CONSENT GIVEN BY CALEB MAKI,RESPONSIBLE LIBERTARIAN FOR PERMCATH PLACEMENT PROCEDURE IN AM.
[2018-10-21 20:00] VITALS: BP 144/67
--- NOTE | 2018-10-21 20:00 | NUR ---
ARTS AND HUMANITIES COUNCIL DIRECTOR NOTE PT IN BED ASLEEP, AROUSABLE. A/O X 2, NO SOB, NO DISTRESS OR DISCOMFORT NOTED. DENIES PAIN. ON TELE SR HR 66. SL IN RT HAND INTACT AND PATENT. REPOSITION HIM FOR SKIN MANAGEMENT. SIDE RAILS UP X 3 AND CALL LIGHT WITHIN REACH. VSS. CONTINUE TO MONITOR HIM.
--- NOTE | 2018-10-21 20:03 | NUR ---
LABORER HIGH DENSITY PRESS CLOSING NOTES PT IS LYING ON BED,.RESPIRATION IS EVEN AND NONLABORED.IV LINE IS IN PLACE.ENDORSED TO SUPERVISOR PLASTICS RN MICHELLE FOR AM PROCEDURE AND NPO MIDNIGHT STATUS.
[2018-10-21] MEDS: ATORVASTATIN 10 MG TABLET PO SCH (21:13)
[2018-10-21] MEDS: SENNOSIDES 8.6 MG TABLET PO SCH (21:13)
[2018-10-21] MEDS: TERAZOSIN HCL 5 MG CAPSULE PO SCH (21:15)
[2018-10-22] VITALS (7 sets, daily range): BP systolic 125–156; BP diastolic 50–69
[2018-10-22 03:44] LABS: BASOPHILS # (AUTO) 0.1 /CMM (0.0-0.2); LYMPHOCYTES # (AUTO) 0.6 /CMM (0.8-4.8); LYMPHOCYTES % (AUTO) 7.2 % (20.0-44.0); RED BLOOD CELL COUNT(AUTO) 2.18 MIL/uL (4.5-6.0)
[2018-10-22 03:54] LABS: BASOPHILS % (AUTO) 0.8 % (0.0-2.0); EOSINOPHILS % (AUTO) 4.5 % (0.0-6.0); HEMATOCRIT 21 % (39-51); MEAN CORPUSCULAR HGB CONC 33 g/dl (31.0-36.0); MEAN CORPUSCULAR VOLUME 94 fL (80-96); MONOCYTES # (AUTO) 0.4 /CMM (0.1-1.30); MONOCYTES % (AUTO) 5.7 % (2.0-12.0); NEUTROPHILS # (AUTO) 6.5 /CMM (1.8-8.9); NEUTROPHILS % (AUTO) 81.8 % (43.0-81.0); PLATELET COUNT (AUTO) 226 /CMM (150-450); WHITE BLOOD COUNT (AUTO) 7.9 K/uL (4.3-11.0)
[2018-10-22 04:01] LABS: HEMOGLOBIN 6.9 g/dL (13.5-17.5)
[2018-10-22 04:02] LABS: CALCIUM, SERUM 8.7 mg/dL (8.5-10.1); CREATININE 4.8 mg/dL (0.6-1.3); MAGNESIUM 2.4 mg/dL (1.8-2.4); POTASSIUM 4.7 mmol/L (3.5-5.1)
[2018-10-22 04:14] LABS: FREE PSA < 0.06 ng/mL (0.00-45); PROSTATE SPECIFIC ANTIGEN SCR 0.47 ng/mL (0.00-4.00)
[2018-10-22 04:37] LABS: EOSINOPHILS % (MANUAL) 4 % (0-4); LYMPHOCYTES % (MANUAL) 7 % (16-48); NEUTROPHILS % (MANUAL) 81 (42-76)
[2018-10-22 04:38] LABS: MONOCYTES % (MANUAL) 8 % (0-11.0)
--- NOTE | 2018-10-22 05:30 | NUR ---
MAINTENANCE INSTRUCTOR NOTE LAB REPORTED H/H 6.01/04 , MACIEJ INFORMED AND RECEIVED NEW ORDER TO INFUSE ONE UNIT OF [facility]. ORDER NOTED AND CARRIED OUT.
--- NOTE | 2018-10-22 05:31 | NUR ---
DATA CONTROL ASSISTANT NOTE BLOOD BANK INFORMED.
--- NOTE | 2018-10-22 05:35 | NUR ---
ACID TANK LINER NOTE CONSENT FOR BLOOD TRANSFUSION RECEIVED FORM CALEB MURCIA OVER THE PHONE, NURSE AVNI WITNESSED IT.
[2018-10-22] MEDS: GABAPENTIN 300 MG CAPSULE PO SCH ×3 (06:00→21:10)
[2018-10-22] MEDS: PROPRANOLOL HCL 10 MG TABLET PO SCH ×2 (06:00→18:17)
[2018-10-22] MEDS ORDERED: ANESTHESIA TRAY IN PYXIS 1 EA TRAY MC ONE (06:29)
[2018-10-22] MEDS ORDERED: LIDOCAINE HCL/PF 1% 30 ML SDV ONE (06:30)
[2018-10-22] MEDS ORDERED: HEPARIN SODIUM, PORCINE 1,000 UNIT/ML VIAL ONE (06:30)
[2018-10-22] MEDS ORDERED: CLINDAMYCIN 900 MG/6 ML VIAL ONE (06:48)
--- NOTE | 2018-10-22 06:48 | NUR ---
MILL LABORER NOTE OR TOOK THE PT DOWN TO OR FOR AM PROCEDURE. NO DISTRESS OR DISCOMFORT NOTED. SR 66. WILL ENDORSE TO DAY SHIFT NURSE FOR CONTINUE TO CARE.
[2018-10-22] MEDS ORDERED: FENTANYL PF 100MCG/2ML AMPUL ONE (06:49)
--- NOTE | 2018-10-22 08:14 | NUR ---
WOUND CARE CONSULT WOUND CARE RECEIVED CONSULT FOR WOUNDS. WOUND CARE WILL DEFER CONSULT AND ALL TREATMENT PLANS TO PLASTIC SURGICAL TEAM WHO ARE CURRENTLY FOLLOWING THIS PATIENT. PATIENT WITH SARAH AT 14, ALL PRESSURE ULCER PREVENTION MEASURES ARE NOTED TO BE IN PLACE AT THIS TIME. WILL SEE PRN.
[2018-10-22] MEDS: hydrALAZINE HCL 50 MG TABLET PO SCH ×4 (09:00→21:08)
[2018-10-22] MEDS: AMLODIPINE BESYLATE 10 MG TABLET PO SCH (09:00)
[2018-10-22] MEDS ORDERED: NEPRO VAN 237 ML CAN PO PRN (09:00)
[2018-10-22] MEDS: LACTOBACILLUS RHAMNOSUS GG 1 EACH CAP.SPRINK PO SCH ×2 (09:23→17:19)
[2018-10-22] MEDS: FERROUS SULFATE (325 MG) 325 MG/TAB TABLET PO SCH ×2 (09:23→17:20)
[2018-10-22] MEDS: SEVELAMER CARBONATE 800 MG TABLET PO SCH ×3 (09:23→17:19)
[2018-10-22] MEDS: PANTOPRAZOLE 40 MG TABLET.DR PO SCH (09:23)
[2018-10-22] MEDS: FOLIC ACID 1 MG TABLET PO SCH (09:23)
[2018-10-22] MEDS: ASCORBIC ACID 500 MG TABLET PO SCH (09:24)
[2018-10-22] MEDS: BLOOD SUGAR DIAGNOSTIC 1 EACH STRIP IN SCH ×4 (09:33→21:11)
[2018-10-22] MEDS: HYDROGEL DRESSING 90 GM TUBE TP SCH ×2 (09:34→21:11)
--- NOTE | 2018-10-22 10:00 | NUR ---
RN NOTES PT RECEIVED ON BED, DRAWZY BUT AROUSABLE TO VERBAL STIMULI, ORIENTED x3, R GROIN DRESSING CLEAN, DRY AND INTACT , VSS STABLE, CONTINUE TO MONITOR
--- NOTE | 2018-10-22 10:34 | NUR ---
INITIAL RN NOTE RCVD PT'S CARE ENDORSED FROM MATY MARTINEZ. PT UNDERWENT RIGHT DIALYSIS ACCESS PLACEMENT THIS AM ON RIGHT GROIN. RCVD PT POST-PROCEDURE AWAKE AND ALERR, SHOWING NO SIGNS OF DISTRESS, TOLERATING O2 VIA NASAL CANNULA, NO COMPLAINS OF PAIN VERBALIZED. SR ON MONITOR, PULSES PRESENT DISTALLY, LEFT POPLITEAL, RIGHT PEDAL AND BILATERAL RADIAL. PT RESTING COMFORTABLY IN BED, DIET RESUMED ORDERED. PER REPORT FROM LIANE, RN DR. KAHN OBSERVED SOME CLOTS ON RIGHT IJ RECOMMENDED RIGHT IJ DUPLEX, THIS WAS ORDERED. PT'S CARE ENDORSED TO MATY MCKEON FOR CONTINUITY OF CARE, BED IN LOW AND LOCKED POSITION, CALL LIGHT WITHIN REACH, HEAD OF BED ELEVATED. PT'S INSULIN HELD THIS AM SINCE PT WAS NPO.
[2018-10-22] MEDS: CLOTRIMAZOLE 1% 15 GM TUBE TP SCH ×2 (10:35→17:21)
[2018-10-22] MEDS: ASPIRIN EC 81 MG TABLET.DR PO SCH (12:40)
[2018-10-22] MEDS: SERTRALINE HCL 50 MG TABLET PO SCH (12:40)
--- NOTE | 2018-10-22 12:42 | NUR ---
RN NOTES APRESOLINE HELD AT THIS TIME, PT GOING TO GET HD TODAY
[2018-10-22] MEDS: SOD FERRIC GLUC 125 MG in IV NS 0.9% 100 ML IV SCH (13:53)
--- NOTE | 2018-10-22 14:41 | NUR ---
RN NOTES DR KAHN AND GEOFFREY LLAMAS NOTIFED REGARDING ACUTE OCCLUSIVE THROMBUS IN R INTERNAL JUGULAR VEIN. PT STABLE , CONTINUE TO MONITOR .
--- NOTE | 2018-10-22 17:02 | NUR ---
RN NOTES ONE UNIT OF [facility] STARED VIA HD , CONTINUE TO MONITOR .
--- NOTE | 2018-10-22 18:00 | NUR ---
RN NOTES PT TOLERATED BLOOD TRANSFUSION WELL, VSS STABLE, RECEIVING HD AT THIS TIME, NO DISTRESS NOTED, WILL ENDORSE TO LOCAL AREA NETWORK ADMINISTRATOR NURSE FOR CONTINUINGLY OF CARE
[2018-10-22] MEDS: APIXABAN 2.5 MG TABLET PO SCH (18:16)
--- NOTE | 2018-10-22 19:15 | NUR ---
RN M/S NOTE PATIENT IS AOX2, RESTING WITH HOB ELEVATED ON 3L O2 VIA NC, NO PAIN NOTED VIA FLACC, NO S/SX OF RESPIRATORY OR CARDIAC DISTRESS, SKIN KEPT CLEAN AND DRY, R FEMORAL PERMACATH, R HAND #20G SL, PATENT FLUSHING WELL, SKIN KEPT CLEAN AND DRY, SAFETY MAINTAINED AT ALL TIMES, BED IN LOW, LOCKED POSITION, CALL LIGHT WITHIN REACH, WILL CONTINUE TO MONITOR FOR ANY CHANGES IN CONDITION.
[2018-10-22] MEDS: ATORVASTATIN 10 MG TABLET PO SCH (21:07)
[2018-10-22] MEDS: SENNOSIDES 8.6 MG TABLET PO SCH (21:07)
[2018-10-22] MEDS: TERAZOSIN HCL 5 MG CAPSULE PO SCH (21:11)
[2018-10-22] MEDS: INSULIN REGULAR, HUMAN 100 UNIT/ML 3 ML VIAL SQ PRN (21:19)
[2018-10-23 04:00] VITALS: BP 165/55
[2018-10-23] MEDS: GABAPENTIN 300 MG CAPSULE PO SCH ×3 (05:55→22:22)
[2018-10-23] MEDS: PROPRANOLOL HCL 10 MG TABLET PO SCH ×2 (05:56→17:14)
[2018-10-23 08:00] VITALS: BP 158/52
[2018-10-23 08:23] LABS: BASOPHILS % (AUTO) 0.5 % (0.0-2.0); CALCIUM, SERUM 8.6 mg/dL (8.5-10.1); CREATININE 4.9 mg/dL (0.6-1.3); EOSINOPHILS % (AUTO) 3.9 % (0.0-6.0); HEMATOCRIT 23 % (39-51); HEMOGLOBIN 7.6 g/dL (13.5-17.5); LYMPHOCYTES # (AUTO) 0.5 /CMM (0.8-4.8); LYMPHOCYTES % (AUTO) 6.5 % (20.0-44.0); MAGNESIUM 2.3 mg/dL (1.8-2.4); MEAN CORPUSCULAR HGB CONC 34 g/dl (31.0-36.0); MEAN CORPUSCULAR VOLUME 93 fL (80-96); MONOCYTES # (AUTO) 0.5 /CMM (0.1-1.30); MONOCYTES % (AUTO) 6.8 % (2.0-12.0); NEUTROPHILS # (AUTO) 6.1 /CMM (1.8-8.9); NEUTROPHILS % (AUTO) 82.3 % (43.0-81.0); PHOSPHORUS 3.8 mg/dL (2.5-4.9); PLATELET COUNT (AUTO) 178 /CMM (150-450); POTASSIUM 4.4 mmol/L (3.5-5.1); RED BLOOD CELL COUNT(AUTO) 2.45 MIL/uL (4.5-6.0); WHITE BLOOD COUNT (AUTO) 7.3 K/uL (4.3-11.0)
[2018-10-23 09:17] LABS: IRON, SERUM 40 ug/dl (50-175); TOTAL IRON BINDING CAPACITY 107 ug/dl (250-450)
[2018-10-23 09:37] LABS: FERRITIN 1250 ng/mL (8-388)
[2018-10-23] MEDS: BLOOD SUGAR DIAGNOSTIC 1 EACH STRIP IN SCH ×4 (10:21→22:19)
[2018-10-23] MEDS: INSULIN REGULAR, HUMAN 100 UNIT/ML 3 ML VIAL SQ PRN ×3 (10:22→17:24)
[2018-10-23] MEDS: PANTOPRAZOLE 40 MG TABLET.DR PO SCH (10:34)
[2018-10-23] MEDS: SEVELAMER CARBONATE 800 MG TABLET PO SCH ×3 (10:35→17:56)
[2018-10-23] MEDS: ASCORBIC ACID 500 MG TABLET PO SCH (10:35)
[2018-10-23] MEDS: LACTOBACILLUS RHAMNOSUS GG 1 EACH CAP.SPRINK PO SCH ×2 (10:35→17:11)
[2018-10-23] MEDS: FOLIC ACID 1 MG TABLET PO SCH (10:35)
[2018-10-23] MEDS: APIXABAN 2.5 MG TABLET PO SCH ×2 (10:36→17:12)
[2018-10-23] MEDS: AMLODIPINE BESYLATE 10 MG TABLET PO SCH (10:38)
[2018-10-23] MEDS: HYDROGEL DRESSING 90 GM TUBE TP SCH ×2 (10:39→20:25)
[2018-10-23] MEDS: CLOTRIMAZOLE 1% 15 GM TUBE TP SCH ×2 (10:40→17:15)
[2018-10-23] MEDS: hydrALAZINE HCL 50 MG TABLET PO SCH ×4 (10:41→20:30)
[2018-10-23] MEDS: FERROUS SULFATE (325 MG) 325 MG/TAB TABLET PO SCH ×2 (10:43→17:12)
[2018-10-23] MEDS: ASPIRIN EC 81 MG TABLET.DR PO SCH (13:04)
[2018-10-23] MEDS: SERTRALINE HCL 50 MG TABLET PO SCH (13:04)
[2018-10-23] MEDS: SOD FERRIC GLUC 125 MG in IV NS 0.9% 100 ML IV SCH (14:43)
[2018-10-23] MEDS ORDERED: EPOETIN ALFA (20,000 UNIT) 20,000 UNIT/ML VIAL SQ SCH (15:00)
[2018-10-23] MEDS ORDERED: EPOETIN ALFA (10,000 UNIT) 10,000 UNIT/ML VIAL SQ SCH (15:00)
[2018-10-23 16:00] VITALS: BP_SYST 139; BP_SYST 155; BP_DIAS 52; BP_DIAS 62
--- NOTE | 2018-10-23 17:45 | NUR ---
CLOSING PT IS LYING ON BED TURNED TIME TO TIME,.RESPIRATION IS EVEN AND NONLABORED.IV LINE IS IN PLACE. ALL NEEDS ATTENDED TO ENDORSED TO PM RN SHIFT RN FOR CONTINUITY OF CARE .
--- NOTE | 2018-10-23 19:15 | NUR ---
RN Notes Received patient awake, alert and oriented x2, verbally responsive. Patient denies pain, nausea and vomiting at this time. HOB elevated with O2 inhalation at 3LPM via NC, tolerated well with good saturation. IV access on right hand patent and intact, flushing well. Right femoral HD cath intact. Turned and repositioned for skin and wound management. Keep patient clean and dry. Safety measures and fall precaution in place with call light within reach. Will continue to monitor.
[2018-10-23] MEDS: TERAZOSIN HCL 5 MG CAPSULE PO SCH (22:22)
[2018-10-23] MEDS: ATORVASTATIN 10 MG TABLET PO SCH (22:22)
[2018-10-23] MEDS: SENNOSIDES 8.6 MG TABLET PO SCH (22:22)
[2018-10-24 04:00] VITALS: BP 125/55
--- NOTE | 2018-10-24 05:57 | NUR ---
RN Notes Patient slept well overnight, vital signs stable, afebrile. Denies SOB, pain, nausea and vomiting. All due meds given and tolerated well. Turned and repositioned per protocol. No significant change in condition noted. Fall precaution observed. all needs met. Will continue to monitor and will endorse accordingly.
[2018-10-24 06:24] VITALS: BP 125/55
[2018-10-24] MEDS: GABAPENTIN 300 MG CAPSULE PO SCH ×3 (06:41→21:51)
[2018-10-24] MEDS: PANTOPRAZOLE 40 MG TABLET.DR PO SCH (06:42)
[2018-10-24] MEDS: PROPRANOLOL HCL 10 MG TABLET PO SCH ×2 (06:42→18:27)
[2018-10-24] MEDS: BLOOD SUGAR DIAGNOSTIC 1 EACH STRIP IN SCH ×4 (06:42→22:02)
[2018-10-24] MEDS: SEVELAMER CARBONATE 800 MG TABLET PO SCH ×3 (08:41→18:13)
[2018-10-24] MEDS: FOLIC ACID 1 MG TABLET PO SCH (08:41)
[2018-10-24] MEDS: FERROUS SULFATE (325 MG) 325 MG/TAB TABLET PO SCH ×2 (08:41→18:13)
[2018-10-24] MEDS: LACTOBACILLUS RHAMNOSUS GG 1 EACH CAP.SPRINK PO SCH ×2 (08:41→18:14)
[2018-10-24] MEDS: AMLODIPINE BESYLATE 10 MG TABLET PO SCH (08:41)
[2018-10-24] MEDS: hydrALAZINE HCL 50 MG TABLET PO SCH ×4 (08:41→21:52)
[2018-10-24] MEDS: ASCORBIC ACID 500 MG TABLET PO SCH (08:41)
[2018-10-24] MEDS: APIXABAN 2.5 MG TABLET PO SCH ×2 (08:42→18:16)
[2018-10-24] MEDS: CLOTRIMAZOLE 1% 15 GM TUBE TP SCH ×2 (08:53→18:15)
[2018-10-24] MEDS: HYDROGEL DRESSING 90 GM TUBE TP SCH ×2 (08:53→22:00)
[2018-10-24] MEDS: SERTRALINE HCL 50 MG TABLET PO SCH (12:40)
[2018-10-24] MEDS: ASPIRIN EC 81 MG TABLET.DR PO SCH (12:40)
[2018-10-24] MEDS: SOD FERRIC GLUC 125 MG in IV NS 0.9% 100 ML IV SCH (13:59)
[2018-10-24] MEDS ORDERED: EPOETIN ALFA (20,000 UNIT) 20,000 UNIT/ML VIAL SQ SCH (15:00)
--- NOTE | 2018-10-24 15:00 | NUR ---
HEAD SCHOOL CUSTODIAN AT BEDSIDE
--- NOTE | 2018-10-24 17:30 | NUR ---
DIALYSIS COMPLETE. 1000mL OUT. BP 134/62, HR 82.
[2018-10-24 20:00] VITALS: BP 146/60
[2018-10-24] MEDS: TERAZOSIN HCL 5 MG CAPSULE PO SCH (21:51)
[2018-10-24] MEDS: ATORVASTATIN 10 MG TABLET PO SCH (21:51)
[2018-10-24] MEDS: SENNOSIDES 8.6 MG TABLET PO SCH (21:51)
[2018-10-24] MEDS: INSULIN REGULAR, HUMAN 100 UNIT/ML 3 ML VIAL SQ PRN (22:05)
[2018-10-25 00:47] VITALS: BP 146/60
[2018-10-25 04:00] VITALS: BP 135/64
[2018-10-25] MEDS: GABAPENTIN 300 MG CAPSULE PO SCH (05:27)
[2018-10-25] MEDS: PROPRANOLOL HCL 10 MG TABLET PO SCH (05:29)
[2018-10-25] MEDS: INSULIN REGULAR, HUMAN 100 UNIT/ML 3 ML VIAL SQ PRN (05:35)
[2018-10-25] MEDS: BLOOD SUGAR DIAGNOSTIC 1 EACH STRIP IN SCH ×2 (05:36→11:28)
--- NOTE | 2018-10-25 05:53 | NUR ---
RN NOTES NO SIGNIFICANT CHANGE IN CONDITION. VITAL SIGNS WNL. BREATHING EVEN AND UNLABORED. NO EPISODE OF HYPO/HYPERGLYCEMIA. RESTING COMFORTABLY IN BED. WILL ENDORSE TO NEXT SHIFT FOR CONTINUITY OF CARE
[2018-10-25 07:29] LABS: BASOPHILS # (AUTO) 0.1 /CMM (0.0-0.2); EOSINOPHILS % (AUTO) 3.9 % (0.0-6.0); HEMATOCRIT 23 % (39-51); HEMOGLOBIN 7.7 g/dL (13.5-17.5); LYMPHOCYTES # (AUTO) 0.5 /CMM (0.8-4.8); MEAN CORPUSCULAR HGB CONC 33 g/dl (31.0-36.0); MEAN CORPUSCULAR VOLUME 92 fL (80-96); MONOCYTES # (AUTO) 0.5 /CMM (0.1-1.30); NEUTROPHILS # (AUTO) 5.1 /CMM (1.8-8.9); NEUTROPHILS % (AUTO) 79.1 % (43.0-81.0); PLATELET COUNT (AUTO) 151 /CMM (150-450); RED BLOOD CELL COUNT(AUTO) 2.49 MIL/uL (4.5-6.0); WHITE BLOOD COUNT (AUTO) 6.5 K/uL (4.3-11.0)
[2018-10-25] MEDS: FOLIC ACID 1 MG TABLET PO SCH (09:53)
[2018-10-25] MEDS: SEVELAMER CARBONATE 800 MG TABLET PO SCH ×2 (09:53→12:54)
[2018-10-25] MEDS: LACTOBACILLUS RHAMNOSUS GG 1 EACH CAP.SPRINK PO SCH (09:54)
[2018-10-25] MEDS: hydrALAZINE HCL 50 MG TABLET PO SCH ×2 (09:54→12:54)
[2018-10-25] MEDS: FERROUS SULFATE (325 MG) 325 MG/TAB TABLET PO SCH (09:54)
[2018-10-25] MEDS: ASCORBIC ACID 500 MG TABLET PO SCH (09:54)
[2018-10-25] MEDS: AMLODIPINE BESYLATE 10 MG TABLET PO SCH (09:55)
[2018-10-25] MEDS: PANTOPRAZOLE 40 MG TABLET.DR PO SCH (09:55)
[2018-10-25] MEDS: APIXABAN 2.5 MG TABLET PO SCH (10:02)
[2018-10-25] MEDS: HYDROGEL DRESSING 90 GM TUBE TP SCH (10:04)
[2018-10-25] MEDS: CLOTRIMAZOLE 1% 15 GM TUBE TP SCH (10:05)
[2018-10-25] MEDS: SERTRALINE HCL 50 MG TABLET PO SCH (12:53)
[2018-10-25] MEDS: ASPIRIN EC 81 MG TABLET.DR PO SCH (12:53)
[2018-10-25 12:54] VITALS: BP 132/56
--- NOTE | 2018-10-25 14:30 | NUR ---
Patient discharged to [facility] at 1430 via [facility] (Ambulance services). Vital signs 132/56, pulse 70. No sign of hypo/hyperglycemic. Patient is calm and cooperative. Discharge report given to EMT, Patient and to the shrink pit supervisor Francisco RUTLEDGE.
[2018-10-30] MEDS ORDERED: EPOETIN ALFA (20,000 UNIT) 20,000 UNIT/ML VIAL SQ SCH (15:00)
== END 2018-10-25 15:28 | DRG 264 ==
LOC: ER 06:20 → TELE1 08:33 → MEDSG1 10-22 11:30
PROVIDERS: ADMIT Nurse Practitioner Acute Care; ATTEND Nurse Practitioner Acute Care
PROC: 5A1D70Z Performance of Urinary Filtration, Intermittent, Less than 6 Hours Per Day (ICD-10-PCS; 2018-10-19)
PROC: 0JB70ZZ Excision of Back Subcutaneous Tissue and Fascia, Open Approach (ICD-10-PCS; principal; 2018-10-21)
PROC: 0JB90ZZ Excision of Buttock Subcutaneous Tissue and Fascia, Open Approach (ICD-10-PCS; 2018-10-21)
PROC: 0JH63XZ Insertion of Tunneled Vascular Access Device into Chest Subcutaneous Tissue and Fascia, Percutaneous Approach (ICD-10-PCS; 2018-10-22)
PROC: 06H033Z Insertion of Infusion Device into Inferior Vena Cava, Percutaneous Approach (ICD-10-PCS; 2018-10-22)
PROC: B519YZA Fluoroscopy of Inferior Vena Cava using Other Contrast, Guidance (ICD-10-PCS; 2018-10-22)
PROC: 30233N1 Transfusion of Nonautologous Red Blood Cells into Peripheral Vein, Percutaneous Approach (ICD-10-PCS; 2018-10-22)
DX: I13.2 Hypertensive heart and chronic kidney disease with heart failure and with stage 5 chronic kidney disease, or end stage renal disease (principal); J15.6 Pneumonia due to other Gram-negative bacteria; L89.153 Pressure ulcer of sacral region, stage 3; G92 Toxic encephalopathy; J96.01 Acute respiratory failure with hypoxia; N18.6 End stage renal disease; R53.2 Functional quadriplegia; I50.31 Acute diastolic (congestive) heart failure; E44.0 Moderate protein-calorie malnutrition; I82.C11 Acute embolism and thrombosis of right internal jugular vein; E11.22 Type 2 diabetes mellitus with diabetic chronic kidney disease; Z99.2 Dependence on renal dialysis; D63.1 Anemia in chronic kidney disease; K21.9 Gastro-esophageal reflux disease without esophagitis; L30.4 Erythema intertrigo; Z88.0 Allergy status to penicillin; Z66 Do not resuscitate; Z79.4 Long term (current) use of insulin; N40.0 Benign prostatic hyperplasia without lower urinary tract symptoms; Z89.512 Acquired absence of left leg below knee; E88.09 Other disorders of plasma-protein metabolism, not elsewhere classified; Z68.28 Body mass index [BMI] 28.0-28.9, adult; E83.9 Disorder of mineral metabolism, unspecified; L89.329 Pressure ulcer of left buttock, unspecified stage; L89.319 Pressure ulcer of right buttock, unspecified stage; Z79.01 Long term (current) use of anticoagulants; L98.8 Other specified disorders of the skin and subcutaneous tissue
CPT/HCPCS: 36415; 71045-TC; 80048-TC; 80061-TC; 80076-TC; 80202-TC; 82728-TC; 82962-TC; 83540-TC; 83605-TC; 83735-TC; 83880; 84100-TC; 84153-TC; 84154-TC; 84484-TC; 85025-TC; 85730-TC; 86850-TC; 86921-TC; 87040-TC; 87081-TC; 90935-TC; 93971-TC; A4216; A4217; A6248; A6253; A6402; A6403; C1750; C1769; G0378; J0885; J1644; J1815; J2185; J2916; J3010; J3370; J3475; J3490; J7030; J7050; J7060; P9016-BL